=== PATIENT | male | born 1930 | race Caucasian/White ===

== ENCOUNTER 2016-09-21 10:49 | Outpatient (CLI) | payer MEDICARE | END 2016-09-21 10:50 | disposition home or self-care (01) | DX: I48.91 Unspecified atrial fibrillation (principal); Z79.01 Long term (current) use of anticoagulants ==

== ENCOUNTER 2016-10-05 09:53 | Outpatient (CLI) | payer MEDICARE | END 2016-10-05 09:54 | disposition home or self-care (01) | DX: I48.91 Unspecified atrial fibrillation (principal); Z79.01 Long term (current) use of anticoagulants ==

== ENCOUNTER 2016-10-12 08:40 | Outpatient (CLI) | payer MEDICARE | END 2016-10-12 08:41 | disposition home or self-care (01) | DX: I48.91 Unspecified atrial fibrillation (principal); Z79.01 Long term (current) use of anticoagulants ==

== ENCOUNTER 2016-11-30 07:32 | Outpatient (CLI) | payer MEDICARE | END 2016-11-30 07:33 | disposition home or self-care (01) | DX: E03.9 Hypothyroidism, unspecified (principal); Z79.899 Other long term (current) drug therapy ==

== ENCOUNTER 2017-01-10 09:28 | Outpatient (CLI) | payer MEDICARE | END 2017-01-10 09:29 | disposition home or self-care (01) | DX: I48.91 Unspecified atrial fibrillation (principal); Z79.01 Long term (current) use of anticoagulants ==

== ENCOUNTER 2017-01-17 08:54 | Outpatient (CLI) | payer MEDICARE | END 2017-01-17 08:55 | disposition home or self-care (01) | DX: I48.91 Unspecified atrial fibrillation (principal); Z79.01 Long term (current) use of anticoagulants ==

== ENCOUNTER 2017-02-01 09:49 | Outpatient (CLI) | payer MEDICARE | END 2017-02-01 09:50 | disposition home or self-care (01) | DX: I48.91 Unspecified atrial fibrillation (principal); Z79.01 Long term (current) use of anticoagulants ==

== ENCOUNTER 2017-02-15 09:24 | Outpatient (CLI) | payer MEDICARE | END 2017-02-15 09:25 | disposition home or self-care (01) | LOC: LAB.F 09:24 | PROVIDERS: ATTEND Internal Medicine | DX: I48.91 Unspecified atrial fibrillation (principal); Z79.01 Long term (current) use of anticoagulants | CPT/HCPCS: 85610 ==

== ENCOUNTER 2017-02-28 14:54 | Outpatient (CLI) | payer MEDICARE | END 2017-02-28 14:55 | disposition home or self-care (01) | LOC: LAB.F 14:54 | PROVIDERS: ATTEND Internal Medicine | DX: I48.91 Unspecified atrial fibrillation (principal); Z79.01 Long term (current) use of anticoagulants | CPT/HCPCS: 85610 ==

== ENCOUNTER 2017-03-28 15:33 | Outpatient (CLI) | payer MEDICARE | END 2017-03-28 15:34 | disposition home or self-care (01) | LOC: LAB.F 15:33 | PROVIDERS: ATTEND Internal Medicine | DX: I48.91 Unspecified atrial fibrillation (principal); Z79.01 Long term (current) use of anticoagulants | CPT/HCPCS: 85610 ==

== ENCOUNTER 2017-04-25 14:59 | Outpatient (CLI) | payer MEDICARE | END 2017-04-25 15:00 | disposition home or self-care (01) | LOC: LAB.F 14:59 | PROVIDERS: ATTEND Internal Medicine | DX: I48.91 Unspecified atrial fibrillation (principal); Z79.01 Long term (current) use of anticoagulants | CPT/HCPCS: 85610 ==

== ENCOUNTER 2017-04-27 15:16 | Outpatient (CLI) | payer MEDICARE | END 2017-04-27 15:17 | disposition home or self-care (01) | LOC: LAB 15:16 | PROVIDERS: ATTEND Internal Medicine | DX: C61 Malignant neoplasm of prostate (principal); R60.0 Localized edema | CPT/HCPCS: 36415; 85379 ==

== ENCOUNTER 2017-05-24 14:13 | Outpatient (CLI) | payer MEDICARE | END 2017-05-24 14:14 | disposition home or self-care (01) | LOC: LAB.F 14:13 | PROVIDERS: ATTEND Internal Medicine | DX: I48.91 Unspecified atrial fibrillation (principal); Z79.01 Long term (current) use of anticoagulants | CPT/HCPCS: 85610 ==

== ENCOUNTER 2017-07-01 09:52 | Outpatient (CLI) | payer MEDICARE | END 2017-07-01 09:53 | disposition home or self-care (01) | LOC: LAB.F 09:52 | PROVIDERS: ATTEND Internal Medicine | DX: I48.91 Unspecified atrial fibrillation (principal); Z79.01 Long term (current) use of anticoagulants | CPT/HCPCS: 85610 ==

== ENCOUNTER 2017-08-01 11:28 | Outpatient (CLI) | payer MEDICARE | END 2017-08-01 11:29 | disposition home or self-care (01) | LOC: LAB.F 11:28 | PROVIDERS: ATTEND Internal Medicine | DX: I48.91 Unspecified atrial fibrillation (principal); Z79.01 Long term (current) use of anticoagulants | CPT/HCPCS: 85610 ==

== ENCOUNTER 2017-08-29 14:27 | Outpatient (CLI) | payer MEDICARE | END 2017-08-29 14:28 | disposition home or self-care (01) | LOC: LAB.F 14:27 | PROVIDERS: ATTEND Internal Medicine | DX: I48.91 Unspecified atrial fibrillation (principal); Z79.01 Long term (current) use of anticoagulants | CPT/HCPCS: 85610 ==

== ENCOUNTER 2017-09-13 11:16 | Outpatient (CLI) | payer MEDICARE | END 2017-09-13 11:17 | disposition home or self-care (01) | LOC: LAB.F 11:16 | PROVIDERS: ATTEND Internal Medicine | DX: I48.91 Unspecified atrial fibrillation (principal); Z79.01 Long term (current) use of anticoagulants | CPT/HCPCS: 85610 ==

== ENCOUNTER 2017-11-01 12:36 | Outpatient (CLI) | payer MEDICARE | END 2017-11-01 12:37 | disposition home or self-care (01) | LOC: LAB.F 12:36 | PROVIDERS: ATTEND Internal Medicine | DX: Z53.9 Procedure and treatment not carried out, unspecified reason (principal) | CPT/HCPCS: 85610 ==

== ENCOUNTER 2017-11-14 14:37 | Outpatient (CLI) | payer MEDICARE | END 2017-11-14 14:38 | disposition home or self-care (01) | LOC: LAB.F 14:37 | PROVIDERS: ATTEND Internal Medicine | DX: I48.91 Unspecified atrial fibrillation (principal); Z79.01 Long term (current) use of anticoagulants | CPT/HCPCS: 85610 ==

== ENCOUNTER 2017-12-04 16:31 | Emergency (ER) | payer MEDICARE ==
[2017-12-04] MEDS ORDERED: SODIUM CHLORIDE 0.9% 500 ML IV ONE (17:30)
--- NOTE | 2017-12-04 17:30 | ED Physician Documentation ---
History of Present Illness - Stated complaint Stated Complaint: FEET/LEGS SWELLING,WEAK - Chief complaint Chief Complaint: General - History obtained from History obtained from: Patient, Family - History of Present Illness Timing: How many days ago (10) Pain level max: 6 Pain level now: 6 Improved by: nothing Worsened by: nothing - Additonal information Additional information: Patient is an 87-year-old gentleman who presents to the emergency department with a history of prostate cancer, currently undergoing oral chemotherapy. The change his medications 10 days ago and since that time he has been feeling generally weak, intermittent confusion with generalized aches and pains. He contacted the on-call oncologist today who recommended he come to the emergency department for evaluation. He is accompanied by his family in the emergency department. No fevers. No vomiting. Review of Systems Constitutional: denies: Fever, Chills Cardiac: denies: Chest pain / pressure Respiratory: denies: Cough GI: denies: Vomiting, Diarrhea Skin: denies: Rash Musculoskeletal: denies: Neck pain, Back pain Neurologic: denies: Headache PD PAST MEDICAL HISTORY - Past Medical History Cardiovascular: Atrial fibrillation Respiratory: None Neuro: Seizure disorder Endocrine/Autoimmune: HyPOthyroidism GI: None : Benign prostate hypertrophy HEENT: None Psych: None Musculoskeletal: None Derm: None - Past Surgical History Past Surgical History: No - Present Medications Home Medications: Ambulatory Orders Medication Instructions Recorded Confirmed Calcium Carbonate [Calcium] 1,000 mg PO DAILY 03/12/13 11/23/17 Cholecalciferol [Vitamin D3] 400 unit PO DAILY 03/12/13 11/23/17 Divalproex [Charlotte Farrar] 500 mg PO BID 03/12/13 11/23/17 Folic Acid 1 mg PO DAILY 03/12/13 11/23/17 Levothyroxine [Synthroid] 150 mcg PO QDAC 03/12/13 11/23/17 Digoxin [Lanoxin] 0.125 mg PO DAILY 05/07/13 11/23/17 Warfarin [Coumadin] 5 mg PO DAILY 08/01/13 11/23/17 Abiraterone Acetate [Zytiga] 1,000 mg PO DAILY 06/26/14 11/23/17 Metoprolol Tartrate [Lopressor] 25 mg PO BID 03/13/16 11/23/17 predniSONE [Deltasone] 5 mg PO DAILYWM 03/13/16 11/23/17 Enzalutamide [Xtandi] 160 mg PO DAILY 11/29/17 11/29/17 - Allergies Allergies/Adverse Reactions: Allergies Allergy/AdvReac Type Severity Reaction Status Date / Time No Known Drug Allergies Allergy Verified 12/04/17 19:21 - Social History Does the pt smoke?: No Smoking Status: Former smoker Does the pt drink ETOH?: No Does the pt have substance abuse?: No - Immunizations Immunizations are current?: No Immunizations: TDAP >10years/unknown - POLST Patient has POLST: No PD ED PE NORMAL - Vitals Vital signs reviewed: Yes - General General: Alert and oriented X 3, No acute distress - HEENT HEENT: Moist mucous membranes - Neck Neck: Supple, no meningeal sign - Cardiac Cardiac: RRR - Respiratory Respiratory: No respiratory distress, Clear bilaterally - Abdomen Abdomen: Soft, Non tender, Non distended - Derm Derm: Warm and dry - Extremities Extremities: Other (mild edema B LE) - Neuro Neuro: Alert and oriented X 3 - Psych Psych: Normal mood, Normal affect Results - Vitals Vitals: Vital Signs - 24 hr 12/04/17 12/04/17 12/04/17 16:33 19:08 20:18 Temperature 36.8 C Heart Rate 108 H 93 77 Respiratory 16 16 16 Rate Blood Pressure 102/59 L 154/57 H 130/60 O2 Saturation 96 93 94 Oxygen O2 Source [With Activity] Room air O2 Source Room air - Labs Labs: Laboratory Tests 12/04/17 12/04/17 12/04/17 18:00 18:00 18:00 WBC 5.5 RBC 4.33 L Hgb 11.9 L Hct 36.0 L MCV 83.2 MCH 27.5 MCHC 33.0 RDW 14.9 Plt Count 208 MPV 8.2 Neut # 3.2 Lymph # 1.1 L [place] # 1.0 Eos # 0.1 Baso # 0.1 Absolute Nucleated RBC 0.00 Nucleated RBC % 0.1 PT 25.0 H INR 2.3 H Sodium 128 L Potassium 3.8 Chloride 96 L Carbon Dioxide 23 Anion Gap 9.0 BUN 13 Creatinine 1.0 Estimated GFR (MDRD) 71 L Glucose 123 H Calcium 8.3 L Total Bilirubin 0.7 AST 19 ALT < 10 L Alkaline Phosphatase 180 H B-Natriuretic Peptide Total Protein 6.0 L Albumin 3.0 L Globulin 3.0 Albumin/Globulin Ratio 1.0 Lipase 13 L Urine Color Urine Clarity Urine pH Ur Specific [place] Urine Protein Urine Glucose (UA) Urine Ketones Urine Occult Blood Urine Nitrite Urine Bilirubin Urine Urobilinogen Ur Leukocyte Esterase Urine RBC Urine WBC Ur Squamous Epith Cells Urine Bacteria Ur Microscopic Review Urine Culture Comments 12/04/17 12/04/17 18:00 18:58 WBC RBC Hgb Hct MCV MCH MCHC RDW Plt Count MPV Neut # Lymph # [place] # Eos # Baso # Absolute Nucleated RBC Nucleated RBC % PT INR Sodium Potassium Chloride Carbon Dioxide Anion Gap BUN Creatinine Estimated GFR (MDRD) Glucose Calcium Total Bilirubin AST ALT Alkaline Phosphatase B-Natriuretic Peptide 246 H Total Protein Albumin Globulin Albumin/Globulin Ratio Lipase Urine Color YELLOW Urine Clarity HAZY Urine pH 5.5 Ur Specific [place] 1.010 Urine Protein NEGATIVE Urine Glucose (UA) NEGATIVE Urine Ketones NEGATIVE Urine Occult Blood LARGE H Urine Nitrite NEGATIVE Urine Bilirubin NEGATIVE Urine Urobilinogen 0.2 (NORMAL) Ur Leukocyte Esterase NEGATIVE Urine RBC 6-10 H Urine WBC 0-3 Ur Squamous Epith Cells NONE SEEN Urine Bacteria None Seen Ur Microscopic Review INDICATED Urine Culture Comments NOT INDICATED PD MEDICAL DECISION MAKING - ED course Complexity details: reviewed results, re-evaluated patient, considered differential, d/w patient, d/w family ED course: Patient is an 87-year-old male with metastatic prostate cancer as well as newly diagnosed renal cell carcinoma. Recently changed his chemotherapy medications and appears to be suffering side effects from this. I discussed the case with Dr. Boogie, on-call for oncology who recommends that he follow-up in the clinic with Dr. Stone in the next few days. He feels better after IV fluids and does appear dehydrated. We will continue supportive care at home and follow -up with his doctor. He also is mildly hyponatremic, this is chronic for him. Patient and family counseled regarding signs and symptoms for which I believe and urgent re-evaluation would be necessary. Patient with good understanding of and agreement to plan and is comfortable going home at this time This document was made in part using voice recognition software. While efforts are made to proofread this document, sound alike and grammatical errors may occur. Departure - Departure Disposition: 01 Home, Self Care Clinical Impression: Dehydration, Hyponatremia Condition: Good Instructions: ED Dehydration, ED Hyponatremia Follow-Up: Xu Mclean MD [Primary Care Provider] - Jayde Stone MD [Physician No Access] - Within 3 Days Comments: Return if you worsen. You need to increase your fluid intake at home. Discharge Date/Time: 12/04/17 20:22
[2017-12-04 18:09] LABS: BASOPHILS # (AUTO) 0.1 10^3/uL (0.0-0.1); BASOPHILS % (AUTO) 1.3 %; EOSINOPHILS # (AUTO) 0.1 10^3/uL (0.0-0.7); EOSINOPHILS % (AUTO) 2.3 %; HGB - HEMOGLOBIN 11.9 g/dL (14.0-18.0); LYMPHOCYTES # (AUTO) 1.1 10^3/uL (1.5-3.5); LYMPHOCYTES % (AUTO) 19.3 %; MEAN CORPUSCULAR HEMOGLOBIN 27.5 pg (27.0-31.0); MEAN CORPUSCULAR VOLUME 83.2 fL (80.0-94.0); MEAN PLATELET VOLUME 8.2 fL (7.4-11.4); MONOCYTES % (AUTO) 18.7 %; NEUTROPHILS # (AUTO) 3.2 10^3/uL (1.5-6.6); NEUTROPHILS % (AUTO) 58.4 %; PLT - PLATELET COUNT 208 10^3/uL (130-450); RED BLOOD COUNT 4.33 10^6/uL (4.70-6.10); RED CELL DISTRIBUTION WIDTH 14.9 % (12.0-15.0); WHITE BLOOD COUNT 5.5 x10^3/uL (4.8-10.8)
[2017-12-04 18:13] LABS: INR 2.3 (0.8-1.2)
--- NOTE | 2017-12-04 18:15 | XRAY Preliminary Report ---
Exam: XR CHEST 1 VIEW X-RAY IMPRESSION: No acute pulmonary process. Numerous sclerotic metastases. [facility] SITE ID: [id number]
--- NOTE | 2017-12-04 18:15 | XRAY Report ---
EXAM: CHEST RADIOGRAPHY EXAM DATE: 12/04/2017 05:57 PM. CLINICAL HISTORY: Dyspnea. COMPARISON: 04/12/2016 chest x-ray. TECHNIQUE: 1 view. FINDINGS: Lungs/Pleura: No focal opacities evident. No pleural effusion. No pneumothorax. Mediastinum: The heart is enlarged. Other: Numerous sclerotic metastases seen. IMPRESSION: No acute pulmonary process. Numerous sclerotic metastases. [facility] Referring Provider Line: [phone] SITE ID: [id number]
[2017-12-04 18:25] LABS: ALKALINE PHOSPHATASE 180 IU/L (42-121); ALT ALANINE AMINOTRANSFERASE < 10 IU/L (10-60); AST ASPARTATE AMINOTRANSFERASE 19 IU/L (10-42); BILIRUBIN,TOTAL 0.7 mg/dL (0.2-1.0); BUN - BLOOD UREA NITROGEN 13 mg/dL (6-20); CALCIUM 8.3 mg/dL (8.5-10.3); CARBON DIOXIDE - CO2 23 mmol/L (21-32); CHLORIDE 96 mmol/L (101-111); GFR - MDRD 71 (>89); GLUCOSE 123 mg/dL (70-100); LIPASE 13 U/L (22-51); SODIUM 128 mmol/L (135-145)
[2017-12-04 19:27] LABS: BILIRUBIN,URINE NEGATIVE (NEGATIVE); GLUCOSE, URINE (UA) NEGATIVE (NEGATIVE); KETONES,URINE (UA) NEGATIVE (NEGATIVE); LEUKOCYTE ESTERASE, URINE NEGATIVE (NEGATIVE); NITRITE,URINE NEGATIVE (NEGATIVE); OCCULT BLOOD,URINE LARGE (NEGATIVE); PH,URINE 5.5 PH (5.0-7.5); PROTEIN,URINE NEGATIVE (NEGATIVE); UROBILINOGEN,URINE 0.2 (NORMAL) E.U./dL (NORMAL)
[2017-12-04 19:32] LABS: CLARITY,URINE HAZY (CLEAR)
[2017-12-04 19:45] LABS: BACTERIA,URINE None Seen /HPF (None Seen); SQUAMOUS EPITHELIAL CELL,UR NONE SEEN (<= Few)
[2017-12-04 20:20] VITALS: BP 130/60
== END 2017-12-04 20:22 | disposition home or self-care (01) ==
LOC: ED 16:31
DX: E86.0 Dehydration (principal); E87.1 Hypo-osmolality and hyponatremia; C61 Malignant neoplasm of prostate; C79.00 Secondary malignant neoplasm of unspecified kidney and renal pelvis; G40.909 Epilepsy, unspecified, not intractable, without status epilepticus; E03.9 Hypothyroidism, unspecified; Z87.891 Personal history of nicotine dependence
CPT/HCPCS: 36415; 71045; 80053; 81001; 81003; 83690; 83880; 85025; 85610; 87086; 96360; 99283; 99284

== ENCOUNTER 2017-12-13 08:00 | Outpatient (CLI) | payer MEDICARE | END 2017-12-13 08:01 | disposition home or self-care (01) | LOC: LAB.F 08:00 | PROVIDERS: ATTEND Internal Medicine | DX: I48.91 Unspecified atrial fibrillation (principal); Z79.01 Long term (current) use of anticoagulants | CPT/HCPCS: 85610 ==

== ENCOUNTER 2017-12-27 11:25 | Outpatient (CLI) | payer MEDICARE | END 2017-12-27 11:26 | disposition home or self-care (01) | LOC: LAB.F 11:25 | PROVIDERS: ATTEND Internal Medicine | DX: I48.91 Unspecified atrial fibrillation (principal); Z79.01 Long term (current) use of anticoagulants | CPT/HCPCS: 85610 ==

== ENCOUNTER 2018-01-10 13:25 | Outpatient (CLI) | payer MEDICARE | END 2018-01-10 13:26 | disposition home or self-care (01) | LOC: LAB.F 13:25 | PROVIDERS: ATTEND Internal Medicine | DX: I48.91 Unspecified atrial fibrillation (principal); Z79.01 Long term (current) use of anticoagulants | CPT/HCPCS: 85610 ==

== ENCOUNTER 2018-01-17 13:57 | Outpatient (CLI) | payer MEDICARE | END 2018-01-17 13:58 | disposition home or self-care (01) | LOC: LAB.F 13:57 | PROVIDERS: ATTEND Internal Medicine | DX: Z53.9 Procedure and treatment not carried out, unspecified reason (principal) ==

== ENCOUNTER 2018-01-24 14:18 | Outpatient (CLI) | payer MEDICARE | END 2018-01-24 14:19 | disposition home or self-care (01) | LOC: LAB.F 14:18 | PROVIDERS: ATTEND Internal Medicine | DX: I48.91 Unspecified atrial fibrillation (principal); Z79.01 Long term (current) use of anticoagulants | CPT/HCPCS: 85610 ==

== ENCOUNTER 2018-02-06 11:42 | Outpatient (CLI) | payer MEDICARE ==
--- NOTE | 2018-02-06 13:45 | XRAY Report ---
THREE VIEW LEFT SHOULDER: 02/06/2018 CLINICAL INDICATION: Pain. FINDINGS: Internal and external rotational views and a scapular Y view of the left shoulder demonstrate mild degenerative changes. There is no evidence of acute fracture. Vascular calcifications are seen. Multiple sclerotic lesions are seen in the visualized left ribs, suspicious for osseous metastatic disease. IMPRESSION: DEGENERATIVE CHANGES. OSSEOUS METASTATIC DISEASE. NO EVIDENCE OF LEFT SHOULDER FRACTURE. TD: 02/06/2018 13:41
--- NOTE | 2018-02-06 13:46 | XRAY Report ---
TWO VIEW LEFT RIBS: 02/06/2018 CLINICAL INDICATION: Pain. FINDINGS: Oblique views of the left ribs were obtained, with a marker at the site of maximal tenderness. There is no evidence of a displaced rib fracture. Multiple sclerotic lesions are seen in the left ribs, compatible with osseous metastatic disease. No pneumothorax is appreciated on these oblique projections. IMPRESSION: OSSEOUS METASTATIC DISEASE. NO EVIDENCE OF ACUTE FRACTURE. TD: 02/06/2018 13:43
== END 2018-02-06 11:43 | disposition home or self-care (01) ==
LOC: DI 11:42
PROVIDERS: ATTEND Internal Medicine
DX: R07.9 Chest pain, unspecified (principal); M25.512 Pain in left shoulder; C79.51 Secondary malignant neoplasm of bone

== ENCOUNTER 2018-02-21 13:58 | Outpatient (CLI) | payer MEDICARE | END 2018-02-21 13:59 | disposition home or self-care (01) | LOC: LAB.F 13:58 | PROVIDERS: ATTEND Internal Medicine | DX: I48.91 Unspecified atrial fibrillation (principal); Z79.01 Long term (current) use of anticoagulants | CPT/HCPCS: 85610 ==

== ENCOUNTER 2018-02-22 08:16 | Outpatient (CLI) | payer MEDICARE ==
[2018-02-22 11:16] LABS: VALPROIC ACID (DEPAKOTE) 40.1 ug/mL
[2018-02-22 11:17] LABS: DIGOXIN < 0.2 ng/mL
== END 2018-02-22 08:17 | disposition home or self-care (01) ==
LOC: LAB.F 08:16
PROVIDERS: ATTEND Internal Medicine
DX: Z79.01 Long term (current) use of anticoagulants (principal); R56.9 Unspecified convulsions; I48.91 Unspecified atrial fibrillation; E03.9 Hypothyroidism, unspecified; Z79.899 Other long term (current) drug therapy
CPT/HCPCS: 36415; 80162; 80164; 84443

== ENCOUNTER 2018-03-08 14:20 | Outpatient (CLI) | payer MEDICARE | END 2018-03-08 14:21 | disposition home or self-care (01) | LOC: LAB.F 14:20 | PROVIDERS: ATTEND Internal Medicine | DX: I48.91 Unspecified atrial fibrillation (principal); Z79.01 Long term (current) use of anticoagulants | CPT/HCPCS: 85610 ==

== ENCOUNTER 2018-03-21 14:47 | Outpatient (CLI) | payer MEDICARE | END 2018-03-21 14:48 | disposition home or self-care (01) | LOC: LAB.F 14:47 | PROVIDERS: ATTEND Internal Medicine | DX: I48.91 Unspecified atrial fibrillation (principal); Z79.01 Long term (current) use of anticoagulants | CPT/HCPCS: 85610 ==

== ENCOUNTER 2018-04-04 08:00 | Outpatient (CLI) | payer MEDICARE | END 2018-04-04 08:01 | LOC: LAB.F 08:00 | PROVIDERS: ATTEND Internal Medicine | DX: I48.91 Unspecified atrial fibrillation (principal); Z79.01 Long term (current) use of anticoagulants | CPT/HCPCS: 85610 ==

== ENCOUNTER 2018-04-11 13:12 | Outpatient (CLI) | payer MEDICARE | END 2018-04-11 13:13 | disposition home or self-care (01) | LOC: LAB.F 13:12 | PROVIDERS: ATTEND Internal Medicine | DX: I48.91 Unspecified atrial fibrillation (principal); Z79.01 Long term (current) use of anticoagulants | CPT/HCPCS: 85610 ==

== ENCOUNTER 2018-04-25 13:34 | Outpatient (CLI) | payer MEDICARE | END 2018-04-25 13:35 | disposition home or self-care (01) | LOC: LAB.F 13:34 | PROVIDERS: ATTEND Internal Medicine | DX: I48.91 Unspecified atrial fibrillation (principal); Z79.01 Long term (current) use of anticoagulants | CPT/HCPCS: 85610 ==

== ENCOUNTER 2018-05-02 14:35 | Outpatient (CLI) | payer MEDICARE | END 2018-05-02 14:36 | disposition home or self-care (01) | LOC: LAB.F 14:35 | PROVIDERS: ATTEND Internal Medicine | DX: Z53.9 Procedure and treatment not carried out, unspecified reason (principal) ==

== ENCOUNTER → 2018-05-09 | Outpatient (CLI) | payer MEDICARE | LOC: LAB.F 08:00 | PROVIDERS: ATTEND Internal Medicine | DX: I48.91 Unspecified atrial fibrillation (principal); Z79.01 Long term (current) use of anticoagulants | CPT/HCPCS: 85610 ==

== ENCOUNTER 2018-05-16 14:01 | Outpatient (CLI) | payer MEDICARE | END 2018-05-16 14:02 | disposition home or self-care (01) | LOC: LAB.F 14:01 | PROVIDERS: ATTEND Internal Medicine | DX: I48.91 Unspecified atrial fibrillation (principal); Z79.01 Long term (current) use of anticoagulants | CPT/HCPCS: 85610 ==

== ENCOUNTER 2018-05-16 20:24 | Outpatient (CLI) | payer MEDICARE | END 2018-05-16 20:25 | disposition critical access hospital (66) | LOC: EMS 20:24 | PROVIDERS: ATTEND Surgery | DX: R55 Syncope and collapse (principal); R53.1 Weakness | CPT/HCPCS: A0425; A0427 ==

== ENCOUNTER 2018-05-16 20:59 | Inpatient (IN) | payer MEDICARE ==
[2018-05-16] MEDS ORDERED: SODIUM CHLORIDE 0.9% 1,000 ML IV ONE (21:27)
[2018-05-16 21:43] LABS: BASOPHILS # (AUTO) 0.1 10^3/uL (0.0-0.1); BASOPHILS % (AUTO) 1.1 %; EOSINOPHILS % (AUTO) 0.5 %; HGB - HEMOGLOBIN 11.2 g/dL (14.0-18.0); LYMPHOCYTES # (AUTO) 1.5 10^3/uL (1.5-3.5); LYMPHOCYTES % (AUTO) 28.6 %; MEAN CORPUSCULAR HEMOGLOBIN 25.8 pg (27.0-31.0); MEAN CORPUSCULAR HGB CONC 33.1 g/dL (32.0-36.0); MEAN PLATELET VOLUME 7.9 fL (7.4-11.4); MONOCYTES % (AUTO) 18.6 %; NEUTROPHILS # (AUTO) 2.8 10^3/uL (1.5-6.6); NEUTROPHILS % (AUTO) 51.2 %; PLT - PLATELET COUNT 117 10^3/uL (130-450); RED BLOOD COUNT 4.34 10^6/uL (4.70-6.10); RED CELL DISTRIBUTION WIDTH 18.3 % (12.0-15.0); WHITE BLOOD COUNT 5.4 x10^3/uL (4.8-10.8)
[2018-05-16 21:55] LABS: PT - PROTHROMBIN TIME 32.2 secs (9.9-12.6)
[2018-05-16 21:59] LABS: ALBUMIN 3.3 g/dL (3.2-5.5); ALBUMIN/GLOBULIN RATIO 1.2 (1.0-2.2); BILIRUBIN,TOTAL 0.8 mg/dL (0.2-1.0); CALCIUM 8.3 mg/dL (8.5-10.3); CREATININE 0.9 mg/dL (0.6-1.2); TOTAL PROTEIN 6.1 g/dL (6.7-8.2)
[2018-05-16 23:01] LABS: BILIRUBIN,URINE NEGATIVE (NEGATIVE); GLUCOSE, URINE (UA) NEGATIVE (NEGATIVE); KETONES,URINE (UA) 15 mg/dL (NEGATIVE); LEUKOCYTE ESTERASE, URINE NEGATIVE (NEGATIVE); NITRITE,URINE NEGATIVE (NEGATIVE); OCCULT BLOOD,URINE TRACE-INTA (NEGATIVE); PH,URINE 6.5 PH (5.0-7.5); PROTEIN,URINE TRACE mg/dL (NEGATIVE); UROBILINOGEN,URINE 2 E.U./dL (NORMAL)
[2018-05-16 23:04] LABS: CLARITY,URINE CLEAR (CLEAR)
--- NOTE | 2018-05-17 00:07 | XRAY Report ---
Reason: hypoxia Procedure Date: 05/16/2018 Accession Number: [id number] / [id number] Procedure: XR - Chest 1 View X-Ray CPT Code: 65039 FULL RESULT: EXAM: CHEST RADIOGRAPHY EXAM DATE: 05/16/2018 11:47 PM. CLINICAL HISTORY: Hypoxia COMPARISON: CHEST 1 VIEW 12/04/2017. TECHNIQUE: 1 view. FINDINGS: Lungs/Pleura: Trace left effusion. No focal infiltrate or pneumothorax. Mediastinum: Cardiomegaly. Other: Sclerotic bony lesions, similar to previous. IMPRESSION: Cardiomegaly and trace left effusion. [facility]
[2018-05-17] MEDS ORDERED: ONDANSETRON 4 MG/2 ML VIAL IVP PRN (01:18)
[2018-05-17] MEDS ORDERED: ONDANSETRON ODT 4 MG TABLET TL PRN (01:18)
[2018-05-17] MEDS ORDERED: METOPROLOL 5 MG/5 ML VIAL IVP STA (01:28)
--- NOTE | 2018-05-17 01:28 | ED Physician Documentation ---
History of Present Illness - Stated complaint Stated Complaint: SYNCOPE/WEAKNESS - Chief complaint Chief Complaint: Neuro - History obtained from History obtained from: Patient, Family, EMS - History of Present Illness Timing: Today - Additonal information Additional information: Patient is an 88 year old male with a history of prostate CA with bone mets and a fib who is presenting to the emergency department for generalized weakness and near syncopal episode. According to patient and family, patient was walking back to the bedroom with his walker and felt more weak than usual. Patient felt like he was going to pass out and he sat on the bed and then slid on the floor but never actually passed out. The family states that his weakness is worsening. patient has not been eating as much and only drank have a quart of water today. Review of Systems Constitutional: denies: Fever, Chills Eyes: denies: Decreased vision Cardiac: denies: Chest pain / pressure Respiratory: denies: Dyspnea, Cough, Wheezing GI: denies: Nausea, Vomiting : denies: Dysuria, Frequency Neurologic: reports: Generalized weakness. denies: Focal weakness, Numbness Psychiatric: denies: Depressed PD PAST MEDICAL HISTORY - Past Medical History Past Medical History: Yes Cardiovascular: Atrial fibrillation, Murmur Respiratory: None Neuro: Seizure disorder Endocrine/Autoimmune: HyPOthyroidism GI: None : Benign prostate hypertrophy, Other HEENT: Chronic hearing loss Psych: None Musculoskeletal: None Derm: None Other Past Medical History: Prostate CA with mets to the bone - Past Surgical History Past Surgical History: No General: Other - Present Medications Home Medications: Ambulatory Orders Medication Instructions Recorded Confirmed Calcium Carbonate [Calcium] 1,000 mg PO DAILY 03/12/13 04/19/18 Cholecalciferol [Vitamin D3] 400 unit PO DAILY 03/12/13 04/19/18 Divalproex [Charlotte Farrar] 500 mg PO BID 03/12/13 04/19/18 Folic Acid 1 mg PO DAILY 03/12/13 04/19/18 Levothyroxine [Synthroid] 150 mcg PO QDAC 03/12/13 04/19/18 Digoxin [Lanoxin] 0.125 mg PO DAILY 05/07/13 04/19/18 Warfarin [Coumadin] 5 mg PO DAILY 08/01/13 04/19/18 Metoprolol Tartrate [Lopressor] 25 mg PO BID 03/13/16 04/19/18 Enzalutamide [Xtandi] 80 mg PO DAILY 11/29/17 04/19/18 Prednisone 5 mg PO BID 12/07/17 04/19/18 predniSONE [Prednisone] 10 mg PO BID MDD x 7 days 12/07/17 04/19/18 Tamsulosin [Flomax] 0.4 mg PO ONCE #60 capsule 03/15/18 04/19/18 Ondansetron [Ondansetron Odt] 4 mg PO Q8HR PRN 04/19/18 04/19/18 Prochlorperazine Maleate 10 mg PO Q6HR PRN 04/19/18 04/19/18 [Compazine] traMADol [Ultram] 25 mg PO Q6H PRN 04/19/18 04/19/18 Mirtazapine 7.5 mg PO DAILY PM 05/03/18 05/03/18 - Allergies Allergies/Adverse Reactions: Allergies Allergy/AdvReac Type Severity Reaction Status Date / Time No Known Drug Allergies Allergy Verified 05/16/18 21:17 - Social History Does the pt smoke?: No Smoking Status: Never smoker Does the pt drink ETOH?: No Does the pt have substance abuse?: No - Immunizations Immunizations are current?: No Immunizations: TDAP >10years/unknown - POLST Patient has POLST: No PD ED PE NORMAL - Vitals Vital signs reviewed: Yes - General General: Alert and oriented X 3, No acute distress - HEENT HEENT: Atraumatic - Abdomen Abdomen: Soft, Non tender, Non distended - Derm Derm: Normal color, Warm and dry - Extremities Extremities: No deformity, Normal ROM s pain, No calf tenderness / cord - Neuro Neuro: Alert and oriented X 3, No motor deficit, Normal speech Eye Opening: Spontaneous Motor: Obeys Commands Verbal: Oriented GCS Score: 15 PD ED PE EXPANDED - HEENT HEENT: Dry mucous membranes - Cardiac Cardiac: Tachy, Irregularly irregular - Respiratory Respiratory: Decreased breath sounds, Right lower lobe, Left lower lobe Results - Vitals Vitals: Vital Signs - 24 hr 05/16/18 05/16/18 05/16/18 21:01 21:31 22:35 Temperature 37.4 C Heart Rate 94 88 Respiratory 19 22 23 Rate Blood Pressure 127/55 L 109/62 O2 Saturation 100 88 L 05/16/18 05/16/18 05/16/18 22:36 23:04 23:12 Temperature Heart Rate 114 H 105 H Respiratory 20 19 20 Rate Blood Pressure 118/65 118/65 O2 Saturation 96 92 98 05/17/18 05/17/18 05/17/18 00:17 00:25 00:27 Temperature Heart Rate 131 H 140 H 114 H Respiratory 20 30 H 20 Rate Blood Pressure 117/66 117/65 O2 Saturation 97 86 L 95 05/17/18 00:57 Temperature Heart Rate 130 H Respiratory 27 H Rate Blood Pressure 131/79 H O2 Saturation 97 Oxygen O2 Source [With Activity] Room air O2 Source Nasal cannula Oxygen Flow Rate 2 - Labs Labs: Laboratory Tests 05/16/18 05/16/18 05/16/18 21:35 21:35 21:35 WBC 5.4 RBC 4.34 L Hgb 11.2 L Hct 33.9 L MCV 78.0 L MCH 25.8 L MCHC 33.1 RDW 18.3 H Plt Count 117 L MPV 7.9 Neut # (Auto) 2.8 Lymph # (Auto) 1.5 [place] # (Auto) 1.0 Eos # (Auto) 0.0 Baso # (Auto) 0.1 Absolute Nucleated RBC 0.01 Nucleated RBC % 0.1 PT 32.2 H INR 3.0 H APTT 40.1 H Sodium 129 L Potassium 5.0 Chloride 98 L Carbon Dioxide 22 Anion Gap 9.0 BUN 20 Creatinine 0.9 Estimated GFR (MDRD) 80 L Glucose 122 H Calcium 8.3 L Phosphorus 4.0 Magnesium 2.0 Total Bilirubin 0.8 AST 89 H ALT 27 Alkaline Phosphatase 751 H Troponin I B-Natriuretic Peptide Total Protein 6.1 L Albumin 3.3 Globulin 2.8 Albumin/Globulin Ratio 1.2 Lipase 23 TSH Urine Color Urine Clarity Urine pH Ur Specific [place] Urine Protein Urine Glucose (UA) Urine Ketones Urine Occult Blood Urine Nitrite Urine Bilirubin Urine Urobilinogen Ur Leukocyte Esterase Ur Microscopic Review Urine Culture Comments 05/16/18 05/16/18 05/16/18 21:35 21:35 21:40 WBC RBC Hgb Hct MCV MCH MCHC RDW Plt Count MPV Neut # (Auto) Lymph # (Auto) [place] # (Auto) Eos # (Auto) Baso # (Auto) Absolute Nucleated RBC Nucleated RBC % PT INR APTT Sodium Potassium Chloride Carbon Dioxide Anion Gap BUN Creatinine Estimated GFR (MDRD) Glucose Calcium Phosphorus Magnesium Total Bilirubin AST ALT Alkaline Phosphatase Troponin I < 0.04 B-Natriuretic Peptide 285 H Total Protein Albumin Globulin Albumin/Globulin Ratio Lipase TSH 3.49 Urine Color Urine Clarity Urine pH Ur Specific [place] Urine Protein Urine Glucose (UA) Urine Ketones Urine Occult Blood Urine Nitrite Urine Bilirubin Urine Urobilinogen Ur Leukocyte Esterase Ur Microscopic Review Urine Culture Comments 05/16/18 21:50 WBC RBC Hgb Hct MCV MCH MCHC RDW Plt Count MPV Neut # (Auto) Lymph # (Auto) [place] # (Auto) Eos # (Auto) Baso # (Auto) Absolute Nucleated RBC Nucleated RBC % PT INR APTT Sodium Potassium Chloride Carbon Dioxide Anion Gap BUN Creatinine Estimated GFR (MDRD) Glucose Calcium Phosphorus Magnesium Total Bilirubin AST ALT Alkaline Phosphatase Troponin I B-Natriuretic Peptide Total Protein Albumin Globulin Albumin/Globulin Ratio Lipase TSH Urine Color YELLOW Urine Clarity CLEAR Urine pH 6.5 Ur Specific [place] 1.015 Urine Protein TRACE Urine Glucose (UA) NEGATIVE Urine Ketones 15 H Urine Occult Blood TRACE-INTA Urine Nitrite NEGATIVE Urine Bilirubin NEGATIVE Urine Urobilinogen 2 H Ur Leukocyte Esterase NEGATIVE Ur Microscopic Review NOT INDICATED Urine Culture Comments NOT INDICATED - Rads (name of study) chest x-ray Radiology: Final report received (small left sided effusion) PD MEDICAL DECISION MAKING - ED course Complexity details: reviewed old records, reviewed results, re-evaluated patient , considered differential, d/w patient, d/w family ED course: patient was seen and examined at bedside. patient was awake alert and oriented with no neurological deficits. ekg was performed and showed A fib. Iv access was gained and labs were drawn. patient was started on a fluid bolus. patient' s diagnostics showed moderate dehydration. patient had multiple episode of hypoxia and chest x-ray was ordered which showed small pleural effusion and possible patchy infiltrates. patient was placed on supplemental oxygen. Case was discussed with the hospitalist who came to evaluate the patient. Patient was admitted for further care. - Sepsis Event Vital Signs: Vital Signs - 24 hr 05/16/18 05/16/18 05/16/18 21:01 21:31 22:35 Temperature 37.4 C Heart Rate 94 88 Respiratory 19 22 23 Rate Blood Pressure 127/55 L 109/62 O2 Saturation 100 88 L 05/16/18 05/16/18 05/16/18 22:36 23:04 23:12 Temperature Heart Rate 114 H 105 H Respiratory 20 19 20 Rate Blood Pressure 118/65 118/65 O2 Saturation 96 92 98 05/17/18 05/17/18 05/17/18 00:17 00:25 00:27 Temperature Heart Rate 131 H 140 H 114 H Respiratory 20 30 H 20 Rate Blood Pressure 117/66 117/65 O2 Saturation 97 86 L 95 05/17/18 00:57 Temperature Heart Rate 130 H Respiratory 27 H Rate Blood Pressure 131/79 H O2 Saturation 97 Oxygen O2 Source [With Activity] Room air O2 Source Nasal cannula Oxygen Flow Rate 2 Departure - Departure Disposition: 66 [facility] DC/Xfer Clinical Impression: Hypoxia, Dehydration, Hyponatremia Condition: Stable Discharge Date/Time: 05/17/18 01:55
--- NOTE | 2018-05-17 02:05 | ADVANCE CARE PLANNING NOTE ---
Advance Care Planning - Date/Time Date: 05/17/18 Time: 00:00 - Purpose of encounter Text: to establish goals for him in light of porgression of disease - Parties in attendance Parties in attendance: , son, patient and Hospitalists, Dr. Liang - Decisional capacity Decisional capacity of: patient in intact. He is alert, but tired. - Subjective/Patient's story Subjective/Patient's story: Had is career in [place] and moved to [facility] in [place]. He has been very happy going between here and [place] with his of 67 years. Developed prostate cancer and initally responded to treatment but in the last 3 years, he has been getting worse and worse with mets to back and PSA slowly rising in spite of different treatment . With the last treatment of Xtandi, he became more nauseted and didn't want to eat. But he couldnt tell if that was form the Xtandi, or the narcotic for back pain, or the radiation to his spine in November. The things he loves to do (reading and golf ) he's not doing anymore. He naps more and more, and is doing less and less. His legs have become more edematous so he's been trying to use compression hose on them. he's losing weight with no appetite. He and his family have not discussed end of life issues such as when he would ask his Oncologist to stop, or what would be the indications that indicate he doesn't want ot go forward. As far as he and his family know, they are waiting for him to get some of strength and weight back, and then he will resume Xtandi and maybe something new for his cancer. - Objective/Medical story Objective/Medical Story: elderly gentleman whose disease has progessed thru castration, hormonal manipulation, and several lines of therapy. He also has afib on coumadin, Aortic regurgitation. He describes a gradual deterioration of his performance status over the last year in spite of treatment. He worsened in November after radiation with nausea and weight loss and progressive fatigue. He is now admitted with afib with RVR, collapse from weakness, protein calorie malnutrition and and overall failure to thrive. - Goals of Care Goals of care determinations: at this time, he has not spoken to his Oncologist about his overall prognosis or what to expect. He still would like treatment but will ask more pointed questions with his next visits. - Plan Plan: Use all treatment options short of resusitation in event of cardiac or pulmonary arrest. - Code Status Code Status: Do Not Attempt Resuscitation - Time Spent on Advance Care Planning Time spent on advance care plannin minutes.
[2018-05-17] MEDS: SODIUM CHLORIDE 0.9% 1,000 ML IV SCH ×2 (02:43→13:21)
[2018-05-17] MEDS: SODIUM CHLORIDE FLUSH 0.9% 10 ML SYRINGE IVP SCH ×3 (02:47→23:39)
--- NOTE | 2018-05-17 03:16 | HISTORY & PHYSICAL EXAMINATION ---
DATE OF SERVICE: 05/17/2018 Physician: Raissa Liang MD PRIMARY CARE PROVIDER: Dr. Xu Mclean. ADMITTING PROVIDER: Raissa Liang MD. CHIEF COMPLAINT: Collapse at home. HISTORY OF PRESENT ILLNESS: This is an 88-year-old white male who was diagnosed with prostate cancer in 2005. He has been treated with Lupron, Casodex and had initial improvement with a PSA near 0. Unfortunately he showed progression and was placed on hormone based therapy as well as Zometa to help him with bony metastases. With Dr. Jayde Stone on 05/08/2018 he is described as having metastatic castrate-resistant prostate cancer, that he has progressed through several lines of chemotherapy and most recently he continued to progress on Zytiga. He was switched to Xtandi in November 2017, but could not tolerate it due to severe fatigue. He also received palliative radiation to his spine two months ago. That made him have severe nausea. Because of his nausea, and in the hopes that his fatigue would continue to improve, Xtandi was held off for another month. He is to be reexamined in about a month's time and have his PSA checked. If his PSA doubled in three months' time, then he was going to be encouraged to restart Xtandi. Other options included Provenge or radium-223 oral or chemotherapy including docetaxel/paclitaxel. In speaking to the family, he has been deteriorating slowly over the last year. His favorite things to do in life are golf and reading. He really cannot finish books anymore because he spends most of his day sleeping. If he sits down to try and read, he just dozes off. More and more daytime use is now spent sleeping. He has lost weight because of decreased appetite from the radiation or the medicine for his prostate cancer or the narcotic that they were using for his bony pain. Family overall really cannot tell why he is nauseated with decreased appetite, he just is. The last time he golfed was last fall. He usually does that in [place]. They skipped [place] this year because he is just too weak and tired. He is still described as relatively independent. He still drives off and on and he last drove last week. But he has been failing. When the family looks back over his overall course, his son describes a step down with a plateau, then another step down with another plateau, and a continued stepping down overall. They were hoping that if he could gain some weight, have better appetite, more energy, he could go back on the Xtandi. Nothing new has happened. It has just been the steady deterioration as described. He has not had fever, chills, sweats. He has not had any new cough , shortness of breath. Appetite has remained the same and he has constant nocturia, but no hematuria. Bony back pain and shoulder pain on the left shoulder is stable at about a 6/10. Over the last week, they have noticed that his leg edema is much worse than usual and they have been trying to use compression stockings. It is not working. Today, he had gotten out of bed and walked a few feet; but he was so exhausted, he turned around and tried to get back in bed. He did not quite make it. As he was walking toward the bed, he just sort of collapsed over it and slowly slid to the floor. He did not have syncope. He did not hit his head. He did not trip over anything. His states he was completely conscious the entire time. He does have a history of seizures, but he did not have a seizure. Ambulance was called and he was brought to the emergency room. In triage his O2 saturation was 100% on room air, but the next vital sign has an 88% on room air. He has needed 1-2 liters to maintain O2 saturations in the 90s and off, he drops down to 86%. Heart rate has ranged from 94 to as high as 140 with atrial fibrillation. He is a very profoundly weak, but oriented, elderly gentleman who is quite cachectic. No findings on physical exam other than just shear debilitation. He has chronic hyponatremia. The lowest he has been is 124 on 05/02/2018. Today he is 129. He started getting hyponatremic to 128 in November of this year. This is in association with his radiation. Protein is 6.1. It is not the lowest he has been. The lowest he has been was 5.1 in February 2016. BUN and creatinine are normal. BNP is mildly elevated. Alkaline phosphatase was normal in 2017 and has been steadily rising. He was in the low 100s for 2017, then the 200s in 2017 and went up to 455 in February, 523 on 2017 and today he is 751. Hemoglobin is stable at 11.2 with his chronic anemia that is normocytic. Chest x-ray shows mild cardiovascular enlargement and a possible minimal pleural effusion, but no acute changes. His school lunch monitor shows the AFib with rapid ventricular response. PAST MEDICAL HISTORY 1. Metastatic prostate cancer with metastases to the bone that has progressed. Manifestations include reduced mobility status, weight loss, rising alkaline phosphatase and progression of bony metastases. 2. Chronic atrial fibrillation for which he is on Coumadin. 3. Moderate aortic regurgitation. 4. Seizure disorder. 5. Hypertension. 6. History of skin cancer. 7. Hypothyroidism. ALLERGIES: NO KNOWN DRUG ALLERGIES. MEDICATIONS 1. Compazine 10 mg every 6 hours as needed. 2. Zofran 4 mg every 8 hours as needed. 3. Digoxin 0.125 mg p.o. daily. 4. Depakote 500 mg p.o. b.i.d. 5. Xtandi 80 mg p.o. daily. 6. Synthroid 150 mcg daily. 7. Metoprolol tartrate 25 mg p.o. b.i.d. 8. Mirtazapine 7.5 mg p.o. at bedtime. 9. Prednisone 15 mg p.o. b.i.d. 10. Tamsulosin 0.4 mg daily. 11. Ultram 25 mg p.o. every 6 hours p.r.n. pain. 12. Coumadin 5 mg p.o. daily. 13. Folic acid 1 mg daily. 14. Vitamin D 400 units daily. 15. Calcium carbonate 1000 mg p.o. daily. SOCIAL HISTORY: He is from the [facility]. He and his live in [facility] when he retired there. They have been for 65 years. They have four children and three of them live in [facility], one lives in [place]. One son is with him right now as well as his . 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 He smoked one pack per day for five years. He drank 1-2 drinks socially a day, but never had a problem with alcohol abuse or alcoholism. He denies any use of cannabis, cocaine, heroin, LSD, methamphetamines. FAMILY HISTORY: Mother had breast cancer and lung cancer. Dad of old age. Two children have seizure disorders. CODE STATUS: DO NOT RESUSCITATE/DO NOT INTUBATE. REVIEW OF SYSTEMS GENERAL: The overall picture of a gentleman who is gradually dwindling with regard to appetite, weight, increasing periods of sleep and inactivity. HEAD/NECK: Unchanged. He denies any new problems with his teeth, swallowing. No new blurred vision. Occasional headache. PULMONARY: Denies coughing, wheezing, chest congestion. CARDIAC: Denies chest pain. He does note that he has been having increasing leg edema for the last week, but they have been trying to treat with compression stockings, but it is not working. He cannot really tell if he is more short of breath than usual because he is just so tired. Again, spends most of his time falling asleep. Spending more time in bed. ABDOMEN: Denies abdominal pain. No change in bowel habits. GENITOURINARY: Chronic nocturia about every hour to 2 hours. He did not have hematuria until he got the Nunez in the ER. Now he is having quite a bit of red blood. He is also having urgency, and dysuria since the Nunez. MUSCULOSKELETAL: Diffuse stiffness. Back pain is his worst pain as well as left shoulder. That has been ongoing for weeks now. SKIN: No new lesions. No new rashes. No petechiae. PSYCHIATRIC: Mild depression, but denies suicidal ideation, delusions. ENDOCRINE: Denies polyuria, polyphagia, polydipsia. PAPER TWISTER: Denies syncope. Has not had a seizure for years. Mild memory loss. No blurred vision, no amaurosis. No focal weakness. PHYSICAL EXAMINATION VITAL SIGNS: Temperature is 37.4. As already stated, his heart rate has varied from the 88 it was in triage and has gone as high as 140. Currently, he is 105. Blood pressure is 118/65, respirations 20. He is 97% on 2 liters. GENERAL: He is a cachectic, quiet, muted elderly gentleman who weakly smiles at me when I ask him how he feels, and he tells me, "I'm just really tired." HEENT: He has the overall cachexia with a protuberant skull. Oral mucosa is dry, but pink. Sclerae are nonicteric. Pupils reactive. NECK: Supple. He has a large sebaceous cyst along the sternocleidomastoid on the left side. No goiter. No bruits. Supple. LUNGS: Clear with diminished sounds at the bases, but no increased respiratory effort. No crackles, no rhonchi, no wheezing. HEART: PMI is normally placed and he has an irregular fast heart rate with systolic murmur and a diastolic murmur. Systolic murmur is at the left lower sternal border and nonradiating. Diastolic murmur is loudest at the apex. ABDOMEN: Scaphoid, soft, nondistended, quiet. Hypoactive bowel sounds. No rebound or guarding. EXTREMITIES: Have 2+ pitting edema around the ankles, but diminishes to 1+ edema as it goes up his legs. He has scaling hyperpigmentation compatible with venous stasis in the left leg, but no open lesions, no redness, no heat. He has bruises on his shins, more the left than the right. No clubbing or cyanosis. No joint effusions. NEUROLOGIC: He is alert to person, place and time, just very diffusely weak. No focal deficits. No tremors. LABORATORY DATA: White cell count is 5.4, hemoglobin 11.2, hematocrit 33.9, MCV 78, platelets 117. The microcytosis is new for him. He was normocytic in February and became microcytic in March. Platelet count is also dropping. He was 214 in January, 186 in February, 160 in March, 130 earlier this month and 117 today. INR is 3. Sodium 129, potassium 5, BUN 20, creatinine 0.9, glucose 122. AST is 89, ALT 27, alkaline phosphatase 751, total bilirubin 0.8. BNP is 285. Troponin less than 0.04. TSH 3.49. Urinalysis has ketones, urobilinogen, but negative for bacteria or leukocyte esterase. Last digoxin dose was less than 0.2 in February of this year. Tonight's has not been done nor has valproic acid been done. Chest x-ray has a trace left effusion, no focal infiltrate or pneumothorax. Cardiomegaly. Sclerotic bony lesions similar to previous. ASSESSMENT AND PLAN: 1. Collapse in this elderly gentleman. Causes are multifactorial, including atrial fibrillation with rapid ventricular response, mild protein-calorie malnutrition, and progression of metastatic prostate cancer. In this gentleman , I do not think there is one single thing that has caused him to become so weak that he fell against his bed today. Right now, we are not seeing any signs of infection and the chest x-ray is clear of pneumonia. Urinalysis is negative. He does not have a fever or a white cell count. Plan is to place in acute inpatient status. Attestation that the patient will be admitted for less than 96 hours and we will gradually start to treat the above-mentioned problems. 2. Atrial fibrillation with rapid ventricular response. Check digoxin dose. Lopressor 5 mg IV push. Resume usual Lopressor b.i.d. He states that he is compliant with his medications. 3. Valvular heart disease. Check echo to see if his valvular heart disease has worsened, which may be contributing to the rising BNP. 4. Metastatic prostate cancer. The patient will be continued on his Xtandi that he can use from home. After discussing with the family his poor performance status and how he has been gradually deteriorating over the last few months, I have asked them to consider at what point they might want to consider stopping therapy. 5. Elevated liver function studies. Check CT of the abdomen looking for liver metastases and/or pelvic adenopathy. His alkaline phosphatase has been rising and I attribute that to bone, not too much to liver. He could have elevated liver enzymes because of passive congestion from his aortic regurgitation. 6. Elevated brain natriuretic peptide. I explained to the family that some of his BNP may be elevated because of aortic regurgitation, but I do not want to diurese him completely at this time because I suspect there is some volume depletion causing the tachycardia as well. Again, we will check echocardiogram. I think that his hyponatremia is from combined dehydration and the CHF. 7. Microcytic anemia. In the MAC notes, Dr. Stone does say that the patient has iron deficiency anemia. Cut off for transfusion would be 7 grams hemoglobin. He is not a candidate at this time. 8. Prolonged international normalized ratio. At this time, it is 3. Hold one dose of Coumadin and continue to check on a daily basis. 9. Traumatic hematuria. The patient and family reassured. Unfortunately, this is a complication of Nunez placement. 10. DO NOT RESUSCITATE/DO NOT INTUBATE status. 11. Deep venous thrombosis prophylaxis will be ongoing with his Coumadin. TD: 05/17/2018 02:28 [facility]
[2018-05-17] MEDS: METOPROLOL TARTRATE 25 MG TABLET PO SCH ×2 (03:37→09:03)
[2018-05-17] MEDS: MIRTAZAPINE 15 MG TABLET PO SCH ×2 (04:46→21:14)
[2018-05-17 06:47] LABS: DIGOXIN 0.8 ng/mL
[2018-05-17] MEDS ORDERED: LEVOTHYROXINE 75 MCG TABLET PO SCH (07:00)
[2018-05-17] MEDS ORDERED: DIGOXIN 125 MCG TABLET PO SCH ×2 (09:00→09:11)
[2018-05-17] MEDS ORDERED: WARFARIN 5 MG TABLET PO SCH ×2 (09:00→17:00)
[2018-05-17] MEDS ORDERED: Enzalutamide [Xtandi] 80 MG PO SCH (09:00)
[2018-05-17] MEDS ORDERED: predniSONE 10 MG TABLET PO SCH (09:00)
[2018-05-17] MEDS: DIVALPROEX DR 250 MG TABLET PO SCH ×2 (09:02→21:14)
[2018-05-17] MEDS: predniSONE 5 MG TABLET PO SCH ×2 (09:03→21:14)
[2018-05-17] MEDS: DIGOXIN 125 MCG TABLET PO SCH (09:17)
[2018-05-17] MEDS: POLYETHYLENE GLYCOL 3350 17 GM PACKET PO SCH (09:18)
[2018-05-17] MEDS: TAMSULOSIN 0.4 MG CAPSULE PO SCH (13:21)
[2018-05-17] MEDS ORDERED: LIDOCAINE 2% URO-JET 5 ML SYRINGE UR PRN (16:21)
[2018-05-17] MEDS: COLCHICINE 0.6 MG TABLET PO SCH ×2 (18:14→21:11)
[2018-05-17] MEDS: METOPROLOL SUCCINATE 25 MG TABLET PO SCH ×2 (18:14→21:14)
[2018-05-17] MEDS: HYDROcod/ACETAM 5/325 MG TABLET PO PRN (18:14)
[2018-05-18] MEDS: SODIUM CHLORIDE 0.9% 1,000 ML IV SCH (00:45)
[2018-05-18] MEDS ORDERED: BENZOCAINE/MENTHOL LOZENGE MM PRN (01:07)
[2018-05-18] MEDS: ACETAMINOPHEN 325 MG TABLET PO PRN ×2 (01:48→16:20)
[2018-05-18 05:07] LABS: PT - PROTHROMBIN TIME 32.2 secs (9.9-12.6)
[2018-05-18 05:10] LABS: ALBUMIN 2.9 g/dL (3.2-5.5); BILIRUBIN,TOTAL 0.8 mg/dL (0.2-1.0); CALCIUM 8.4 mg/dL (8.5-10.3); CREATININE 0.8 mg/dL (0.6-1.2); TOTAL PROTEIN 5.9 g/dL (6.7-8.2)
[2018-05-18 05:21] LABS: BASOPHILS % (AUTO) 0.7 %; EOSINOPHILS % (AUTO) 0.2 %; HGB - HEMOGLOBIN 11.1 g/dL (14.0-18.0); LYMPHOCYTES # (AUTO) 1.1 10^3/uL (1.5-3.5); MEAN CORPUSCULAR HEMOGLOBIN 25.8 pg (27.0-31.0); MEAN CORPUSCULAR HGB CONC 32.8 g/dL (32.0-36.0); MEAN CORPUSCULAR VOLUME 78.9 fL (80.0-94.0); MEAN PLATELET VOLUME 8.3 fL (7.4-11.4); MONOCYTES # (AUTO) 0.6 10^3/uL (0.0-1.0); MONOCYTES % (AUTO) 15.2 %; NEUTROPHILS # (AUTO) 2.4 10^3/uL (1.5-6.6); NEUTROPHILS % (AUTO) 56.9 %; PLT - PLATELET COUNT 125 10^3/uL (130-450); RED BLOOD COUNT 4.31 10^6/uL (4.70-6.10); RED CELL DISTRIBUTION WIDTH 18.7 % (12.0-15.0); WHITE BLOOD COUNT 4.2 x10^3/uL (4.8-10.8)
[2018-05-18] MEDS: LEVOTHYROXINE 75 MCG TABLET PO SCH (06:47)
--- NOTE | 2018-05-18 08:08 | PROVIDER PROGRESS NOTE ---
Subjective - Prog Note Date Prog Note Date: 05/18/18 Prog Note Time: 08:08 Objective - Vital Signs/Intake & Output Vital Signs: Vital Signs x48h Temp Pulse Resp BP Pulse Ox 05/18/18 05:56 36.9 C 110 H 30 H 96 05/18/18 04:16 36.5 C 110 H 24 132/67 H 97 05/18/18 02:16 77 30 H 92 05/18/18 01:55 36.3 C L 87 38 H 87 L Intake & Output: Intake & Output 05/15/18 05/16/18 05/17/18 05/18/18 23:59 23:59 23:59 23:59 Intake Total 1666.108 949.996 Output Total 1575 365 Balance 91.108 584.996 - Lab Results Fish Bones: 05/18/18 04:40 05/18/18 04:40 Other Labs: Lab Results x24hrs 05/18/18 05/18/18 05/18/18 Range/Units 04:40 04:40 04:40 WBC (4.8-10.8) x10^3/uL RBC (4.70-6.10) 10^6/uL Hgb (14.0-18.0) g/dL Hct (42.0-52.0) % MCV (80.0-94.0) fL MCH (27.0-31.0) pg MCHC (32.0-36.0) g/dL RDW (12.0-15.0) % Plt Count (130-450) 10^3/uL MPV (7.4-11.4) fL Neut # (Auto) (1.5-6.6) 10^3/uL Lymph # (Auto) (1.5-3.5) 10^3/uL [place] # (Auto) (0.0-1.0) 10^3/uL Eos # (Auto) (0.0-0.7) 10^3/uL Baso # (Auto) (0.0-0.1) 10^3/uL Absolute Nucleated RBC x10^3/uL Nucleated RBC % /100WBC PT 32.2 H (9.9-12.6) secs INR 3.0 H (0.8-1.2) Sodium 130 L (135-145) mmol/L Potassium 4.4 (3.5-5.0) mmol/L Chloride 101 (101-111) mmol/L Carbon Dioxide 20 L (21-32) mmol/L Anion Gap 9.0 (6-13) BUN 16 (6-20) mg/dL Creatinine 0.8 (0.6-1.2) mg/dL Estimated GFR (MDRD) 92 (>89) Glucose 157 H (70-100) mg/dL Calcium 8.4 L (8.5-10.3) mg/dL Total Bilirubin 0.8 (0.2-1.0) mg/dL AST 57 H (10-42) IU/L ALT 26 (10-60) IU/L Alkaline Phosphatase 582 H (42-121) IU/L B-Natriuretic Peptide 709 H (5-100) pg/mL Total Protein 5.9 L (6.7-8.2) g/dL Albumin 2.9 L (3.2-5.5) g/dL Globulin 3.0 (2.1-4.2) g/dL Albumin/Globulin Ratio 1.0 (1.0-2.2) 05/18/18 Range/Units 04:40 WBC 4.2 L (4.8-10.8) x10^3/uL RBC 4.31 L (4.70-6.10) 10^6/uL Hgb 11.1 L (14.0-18.0) g/dL Hct 34.0 L (42.0-52.0) % MCV 78.9 L (80.0-94.0) fL MCH 25.8 L (27.0-31.0) pg MCHC 32.8 (32.0-36.0) g/dL RDW 18.7 H (12.0-15.0) % Plt Count 125 L (130-450) 10^3/uL MPV 8.3 (7.4-11.4) fL Neut # (Auto) 2.4 (1.5-6.6) 10^3/uL Lymph # (Auto) 1.1 L (1.5-3.5) 10^3/uL [place] # (Auto) 0.6 (0.0-1.0) 10^3/uL Eos # (Auto) 0.0 (0.0-0.7) 10^3/uL Baso # (Auto) 0.0 (0.0-0.1) 10^3/uL Absolute Nucleated RBC 0.00 x10^3/uL Nucleated RBC % 0.1 /100WBC PT (9.9-12.6) secs INR (0.8-1.2) Sodium (135-145) mmol/L Potassium (3.5-5.0) mmol/L Chloride (101-111) mmol/L Carbon Dioxide (21-32) mmol/L Anion Gap (6-13) BUN (6-20) mg/dL Creatinine (0.6-1.2) mg/dL Estimated GFR (MDRD) (>89) Glucose (70-100) mg/dL Calcium (8.5-10.3) mg/dL Total Bilirubin (0.2-1.0) mg/dL AST (10-42) IU/L ALT (10-60) IU/L Alkaline Phosphatase (42-121) IU/L B-Natriuretic Peptide (5-100) pg/mL Total Protein (6.7-8.2) g/dL Albumin (3.2-5.5) g/dL Globulin (2.1-4.2) g/dL Albumin/Globulin Ratio (1.0-2.2) Assessment/Plan - Problem List (2) Hypoxia Impression: The patient is not thought to be oxygen dependent at home, but since admission, the patient has been on supplemental oxygen that is now at 5L per oxy mask. The patient also has an increased respiratory rate of 34. I will obtain a chest x-ray today, as I suspect acute pneumonia and/or acute on chronic CHF. 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 Preliminary echo results show a reduced EF at 55%, aortic stenosis that is new from a previous echo, and diastolic dysfunction. Today on exam, the patient is very congested, and crackles are appreciated to the nipple line. An S4 is heard in the mitral region and this is both from his aortic stenosis and his pericardial effusion. Plan: continue to monitor fluid balance and give a daily lasix dose at 40 mg IV. (6) Aortic stenosis Impression: The patient's and son can recall that he had a history of aortic regurg, that was in stable condition the last they knew. Preliminary echo results show a severe aortic stenosis. Upon exam the auscultation of AO, it is mild and this likely due to the severity of this disease being severe. Plan: Continue to work on lowering heart rate to help with profusion. (7) Pulmonary hypertension Impression: The patient has a preliminary RVSP at rest of 54 mm Hg at rest as per echo report. He likely has pneumonia and fluid overload and a chest x-ray is pending. He has required oxygen since the time of admission and today has increased needs to 5L via oxy mask. He has BLE edema, that is pitting today. Plan: Eventually, the patient will be transitioned to daily Spironolactone.
[2018-05-18] MEDS: traMADol 50 MG TABLET PO PRN ×2 (10:46→20:28)
[2018-05-18] MEDS: DIGOXIN 125 MCG TABLET PO SCH (10:47)
[2018-05-18] MEDS: COLCHICINE 0.6 MG TABLET PO SCH (10:47)
--- NOTE | 2018-05-18 10:48 | CONSULTATION NOTE ---
Palliative Care Consultation - Referral Referring Provider: Keysha ESCOBAR Time of Visit: Referral setting: Hospitalized patient Referral Reason: Met Prostate Cancer/Goals of Care - Information Sources Records reviewed: RN notes reviewed, Previous records reviewed History/Review of Systems obtained from: Patient, Family (Son Antonio and Liz present) Exam limitations: Clinical condition (patient with hearing difficulties/fatigued ) - History of Present Illness Brief History of Present Illness: This is an 88-year-old gentleman who has been admitted acutely to [facility] on 05/17 secondary to collapse, this is thought to be multifactorial in origin. Patient has been deteriorating over the last couple weeks, with decreased appetite, decreased functional status, and sleeping more. 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 Escobar, and seed implants. He was found though after several lines of treatment including Lupron/Casodex, Zytiga, in November 2017 to have progressed. He is started on Xtandi, and was having significant amount of fatigue with this. They did put it on hold, watching his PSA, and restarted at 50% recently but still with side effects so currently on hold. 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 Patient has lost 10 pounds over the last few weeks , had actually been fairly functional up to this point, though weaker overall, was bathing independently, only recently needed walker, but has been more fatigued. Patient also has known atrial fib on anticoagulant, now admitted with atrial fib with rapid ventricular response, found on echo To have a small pericardial effusion recently started on colchochine, and increased aortic regurgitation/ stenosis. Medical/Surgical History - Past Medical History Cardiovascular: reports: Atrial fibrillation, Murmur, Valve disorder (aortic regurgitation) Respiratory: reports: None Neuro: Seizure disorder Endocrine/Autoimmune: reports: HyPOthyroidism GI: reports: None : reports: Benign prostate hypertrophy, Other (prostate cancer) HEENT: reports: Chronic hearing loss Psych: reports: None Musculoskeletal: reports: Fatigue, Chronic back pain (bone mets) Derm: reports: None MRSA Hx?: No Other Past Medical History: Prostate CA with mets to the bone - Past Surgical History General: reports: Other (TURP/Seed implants) - Substance History Use: Uses substance without health or social issues: NONE Social History - Living Situation Living arrangement: At home Living Situation: With spouse/s.o. (Has been for 64 years; lived on [place] for [place]; has 4 children very supportive; in fairly good health;) Family History - Family History Family History: Mother: (advanced age), Cancer (breast/lung), Father: Medications/Allergies - Medications Active Medication List: Active Medications Acetaminophen (Tylenol) 650 mg PO Q4HR PRN PRN Reason: Pain 1 to 4 Acetaminophen (Tylenol) 650 mg PO TID [facility] Hydrocodone Bitart/Acetaminophen (Jolon 5/325) 1 tab PO Q4HR PRN PRN Reason: Pain 5 to 7 Last Admin: 05/17/18 18:14 Dose: 1 tab Colchicine (Colcrys) 0.6 mg PO BID [facility] Last Admin: 05/17/18 21:11 Dose: Not Given Digoxin (Lanoxin) 125 mcg PO DAILY [facility] Last Admin: 05/17/18 09:17 Dose: 125 mcg Divalproex Sodium (Depakote Dr) 500 mg PO BID [facility] Last Admin: 05/17/18 21:14 Dose: 500 mg Levothyroxine Sodium (Synthroid) 150 mcg PO MoTuWeThFr@0700 [facility] Last Admin: 05/18/18 06:47 Dose: 150 mcg Lidocaine HCl (Xylocaine Uro-Jet 2%) 2.5 ml UR Q6H PRN PRN Reason: PAIN Last Admin: 05/17/18 17:48 Dose: 2.5 ml Metoprolol Succinate (Toprol Xl) 12.5 mg PO BID [facility] Last Admin: 05/17/18 21:14 Dose: 12.5 mg Mirtazapine (Remeron) 7.5 mg PO QPM [facility] Last Admin: 05/17/18 21:14 Dose: 7.5 mg Ondansetron HCl (Zofran Inj) 4 mg IVP Q6HR PRN PRN Reason: Nausea / Vomiting Ondansetron HCl (Zofran Odt) 4 mg TL Q6HR PRN PRN Reason: Nausea / Vomiting Polyethylene Glycol (Miralax) 17 gm PO DAILY [facility] Last Admin: 05/17/18 09:18 Dose: Not Given Prednisone (Deltasone) 5 mg PO BID [facility] Last Admin: 05/17/18 21:14 Dose: 5 mg Sodium Chloride (Normal Saline Flush 0.9%) 10 ml IVP PRN PRN PRN Reason: NEEDED PER PROVIDER ORDERS Sodium Chloride (Normal Saline Flush 0.9%) 10 ml IVP 0100,0900,1700 [facility] Last Admin: 05/17/18 23:39 Dose: Not Given Tamsulosin HCl (Flomax) 0.4 mg PO DAILY [facility] Last Admin: 05/17/18 13:21 Dose: 0.4 mg Throat Lozenges (Cepacol) 1 lozenge MM Q2HR PRN PRN Reason: Throat pain Tramadol HCl (Ultram) 25 mg PO Q6H PRN PRN Reason: PAIN Cholecalciferol [Vitamin D3] 600 unit PO DAILY 03/12/[address] [Depakote Dr] 500 mg PO BID 03/12/13 Folic Acid 1 mg PO DAILY 03/12/13 Levothyroxine [Synthroid] 150 mcg PO MOTUWETHFR@0700 03/12/13 Warfarin [Coumadin] 5 mg PO SUMOTUTHFRSA@0900 08/01/13 Metoprolol Tartrate [Lopressor] 12.5 mg PO BID 03/13/16 Prednisone 5 mg PO BID 12/07/17 traMADol [Ultram] 25 mg PO Q6H PRN 04/19/18 Mirtazapine 7.5 mg PO DAILY PM 05/03/18 Calcium Citrate 500 mg PO DAILY 05/17/18 Digoxin 125 mcg PO DAILY 05/17/18 Ibuprofen 200 mg PO Q4H PRN 05/17/18 Tamsulosin [Flomax] 0.4 mg PO DAILY 05/17/18 - Allergies Allergies/Adverse Reactions: Allergies Allergy/AdvReac Type Severity Reaction Status Date / Time No Known Drug Allergies Allergy Verified 05/16/18 21:17 Review of Systems - Constitutional Constitutional: reports: Fatigue, Malaise, Weakness, Poor appetite, Weight loss (reports 10 pound weight loss over last few weeks; started on remeron by Dr. Stone about 2 weeks ago) - Eyes Eyes: reports: Vision loss - Ears, Nose & Throat Ears, Nose & Throat: reports: Hearing loss, Hearing aids, Nasal congestion, Dry mouth - Cardiovascular Cardiovascular: reports: Irregular heart rate, Chest pain (about once a month), Edema (had been using support hose secondary to increase edema) - Respiratory Respiratory: reports: Cough (new today), SOB at rest (denies distress but demonstrates respiratory effort), SOB with exertion - Gastrointestinal Gastrointestinal: reports: Poor appetite, Early satiety. denies: Constipation - Genitourinary Genitourinary: reports: Other (currently with alvarado; reports decreased stress; had been having frequency/retention and noctoria increasing-some improvement with flomax orginally has not help recently) - Musculoskeletal Musculoskeletal: reports: Back pain (related to opal mets), Stiffness, Limited range of motion, Muscle weakness, Assistive devices - Integumentary Integumentary: reports: Dryness - Neurological Neurological: reports: General weakness - Endocrine Endocrine: reports: Hypothyroidism - Hematologic/Lymphatic Hematologic/Lymphatic: reports: Anemia - All Other Systems All Other Systems: reports: Reviewed and negative Physical Exam - Vital Signs Vital Signs: Vital Signs x48h Temp Pulse Resp BP Pulse Ox 05/18/18 08:30 36.4 C L 61 22 128/60 93 05/18/18 05:56 36.9 C 110 H 30 H 96 05/18/18 04:16 36.5 C 110 H 24 132/67 H 97 - Physical Exam General Appearance: positive: Mild distress, Lethargic Eyes Bilateral: positive: Normal inspection ENT: positive: Dry mucous membranes (mouth breathing with mask) Neck: positive: No JVD, Trachea midline Cardiovascular: positive: Irregular, Tachycardia Respiratory: positive: Diminished in bases (left greater than right), Rhonchi ( upper airways; loose rolling cough unable to expell) Abdomen: positive: Non-tender, Soft, Nml bowel sounds Skin: positive: Pallor, Dryness, Bruising Extremities: positive: Pedal edema (trace/scds) Neurologic/Psychiatric: positive: Disoriented to time, Weakness, Other (falls to sleep frequently through visit) Palliative Care - POLST Patient has POLST: No Pain: Pain worsening, Location (mid thoracic area; has used APAP/Tramadol/ ibuprofen at home; did poorly on narcotics though received hydrocodone last night. Patient very painful to move to evaluate lung status; reports pain as mod /severe in his upper back area.) Tiredness/Fatigue: Severe (7-10) Drowsiness/Sedation: Severe (7-10) Nausea: Mild (1-3) Constipation: No Performance Status: Patient previous to this episode - Palliative Care Discussion: Family meeting with son and he, Liz, and patient. Patient quite fatigued, fading in and out, and hard of hearing. But was able to participate somewhat in the conversation. Given patient's acute changes, still being worked up for underlying etiology of his decline, though certainly could be attributed to his advanced age, metastatic prostate cancer, and multiple comorbidities. though reports he has changed fairly dramatically in the last 24 hours, follow- up with Darrick ESCOBAR for further evaluation. In the context of discussion, we did talk about the continuum of care, including possibilities as far as transition and transition points. We discussed if patient continue with functional decline, they were going to need increased assistance, they do have a long-term care policy, discussed hiring increased assistance in the home setting. Patient has up to this point been fairly engaged in his care, trying to improve his functional status with a walking program, but does admit to severe fatigue, weight loss, and sleeping more. Patient and family goals are to regain as much of this as possible, recognizing patient has been declining. Discussed SNF with rehab goals, HH PT support, and that this would be evaluated at the time by rehab staff here with recommendations when closer to discharge. Introduced though wishes if were not to improve, family has not had any experience or familiarity with hospice, counseling regarding hospice support in the home, benefit does not include room and board, and answered questions of , had heard of [facility]. Reviewed this would need to be at a transition point when the goal was to focus on comfort only, and defined as a prognosis of 6 months or less.Patient and do have fairly extensive advanced directives, patient would want to be at home on for end-of-life and confirms that this is been a conversation they have had but has not been expanded on previous to this hospitalization. All in agreement needed to wait and see what the new normal is, and what expectations might be of his functional status and outcomes from his hospitalization. Results - Lab Results Lab results reviewed: Yes Fish Bones: 05/18/18 04:40 05/18/18 04:40 Lab and Imaging Results: Lab Results x24hrs 05/18/18 05/18/18 05/18/18 Range/Units 04:40 04:40 04:40 WBC (4.8-10.8) x10^3/uL RBC (4.70-6.10) 10^6/uL Hgb (14.0-18.0) g/dL Hct (42.0-52.0) % MCV (80.0-94.0) fL MCH (27.0-31.0) pg MCHC (32.0-36.0) g/dL RDW (12.0-15.0) % Plt Count (130-450) 10^3/uL MPV (7.4-11.4) fL Neut # (Auto) (1.5-6.6) 10^3/uL Lymph # (Auto) (1.5-3.5) 10^3/uL [place] # (Auto) (0.0-1.0) 10^3/uL Eos # (Auto) (0.0-0.7) 10^3/uL Baso # (Auto) (0.0-0.1) 10^3/uL Absolute Nucleated RBC x10^3/uL Nucleated RBC % /100WBC PT 32.2 H (9.9-12.6) secs INR 3.0 H (0.8-1.2) Sodium 130 L (135-145) mmol/L Potassium 4.4 (3.5-5.0) mmol/L Chloride 101 (101-111) mmol/L Carbon Dioxide 20 L (21-32) mmol/L Anion Gap 9.0 (6-13) BUN 16 (6-20) mg/dL Creatinine 0.8 (0.6-1.2) mg/dL Estimated GFR (MDRD) 92 (>89) Glucose 157 H (70-100) mg/dL Calcium 8.4 L (8.5-10.3) mg/dL Total Bilirubin 0.8 (0.2-1.0) mg/dL AST 57 H (10-42) IU/L ALT 26 (10-60) IU/L Alkaline Phosphatase 582 H (42-121) IU/L B-Natriuretic Peptide 709 H (5-100) pg/mL Total Protein 5.9 L (6.7-8.2) g/dL Albumin 2.9 L (3.2-5.5) g/dL Globulin 3.0 (2.1-4.2) g/dL Albumin/Globulin Ratio 1.0 (1.0-2.2) 05/18/18 Range/Units 04:40 WBC 4.2 L (4.8-10.8) x10^3/uL RBC 4.31 L (4.70-6.10) 10^6/uL Hgb 11.1 L (14.0-18.0) g/dL Hct 34.0 L (42.0-52.0) % MCV 78.9 L (80.0-94.0) fL MCH 25.8 L (27.0-31.0) pg MCHC 32.8 (32.0-36.0) g/dL RDW 18.7 H (12.0-15.0) % Plt Count 125 L (130-450) 10^3/uL MPV 8.3 (7.4-11.4) fL Neut # (Auto) 2.4 (1.5-6.6) 10^3/uL Lymph # (Auto) 1.1 L (1.5-3.5) 10^3/uL [place] # (Auto) 0.6 (0.0-1.0) 10^3/uL Eos # (Auto) 0.0 (0.0-0.7) 10^3/uL Baso # (Auto) 0.0 (0.0-0.1) 10^3/uL Absolute Nucleated RBC 0.00 x10^3/uL Nucleated RBC % 0.1 /100WBC PT (9.9-12.6) secs INR (0.8-1.2) Sodium (135-145) mmol/L Potassium (3.5-5.0) mmol/L Chloride (101-111) mmol/L Carbon Dioxide (21-32) mmol/L Anion Gap (6-13) BUN (6-20) mg/dL Creatinine (0.6-1.2) mg/dL Estimated GFR (MDRD) (>89) Glucose (70-100) mg/dL Calcium (8.5-10.3) mg/dL Total Bilirubin (0.2-1.0) mg/dL AST (10-42) IU/L ALT (10-60) IU/L Alkaline Phosphatase (42-121) IU/L B-Natriuretic Peptide (5-100) pg/mL Total Protein (6.7-8.2) g/dL Albumin (3.2-5.5) g/dL Globulin (2.1-4.2) g/dL Albumin/Globulin Ratio (1.0-2.2) Impression and Recommendations - Palliative Care Impression: This is an 88-year-old gentleman who presents acutely to [facility], now presents with rolling cough, diminished breath sounds, fatigue, and increased lethargy. Patient with metastatic prostate cancer, multiple comorbidities, and concern for developing pneumonia. Palliative care meeting initially with family to evaluate goals, will continue to provide support. Recommendations/Counseling Done: 1. Pain of neoplastic origin. Would recommend scheduled acetaminophen 650 3 times daily, patient had been on varying doses in the home setting. Patient does have tramadol available, would recommend nursing continue to evaluate as patient is hard of hearing, does not always offer of his discomfort. 2. Lethargy. Patient has not received any recent medications to change his level of consciousness, patient does present with rolling cough, diminished bases, and scattered rhonchi anteriorly. Follow-up with Darrick ESCOBAR, plan is to get a chest x-ray and rule out pneumonia. 3. Anorexia. Patient recently started on Remeron 7.5 mg at bedtime. Will need to continue to monitor, this is most likely multifactorial in origin, including fatigue, uncontrolled pain, and disease process. 4. Urinary retention. Patient actually quite pleased with Alvarado catheter as he has had increased trouble with urinary retention, frequency, and nocturia at night. Counseling briefly on post and cons, if patient remains quite fragile and frail may consider long-term benefits. 5. Advanced care planning. Initial meeting to establish rapport, counseling regarding the continuum of care and transition points, introduction of the concept of hospice based on goals. Discussed weighing benefits and burdens of treatment decisions against quality of life issues. Patient is a do not attempt resuscitation, does not have a DANITZA ST on record, but does have advanced directives. Patient quite weak and lethargic at time of visit, addressed son and 's questions, would recommend continued palliative care support outpatient if the patient discharges before next week. Time Spent: 90 minutes with greater than 50% of this done and counseling regarding goals of care, current acute illness, metastatic prostate cancer and anticipatory guidance.
[2018-05-18] MEDS: TAMSULOSIN 0.4 MG CAPSULE PO SCH (10:49)
[2018-05-18] MEDS: DIVALPROEX DR 250 MG TABLET PO SCH ×2 (10:50→20:29)
[2018-05-18] MEDS: predniSONE 5 MG TABLET PO SCH (10:51)
[2018-05-18] MEDS: METOPROLOL SUCCINATE 25 MG TABLET PO SCH ×2 (10:52→20:29)
[2018-05-18] MEDS: ACETAMINOPHEN 325 MG TABLET PO SCH ×3 (10:53→21:16)
[2018-05-18] MEDS: POLYETHYLENE GLYCOL 3350 17 GM PACKET PO SCH (10:55)
[2018-05-18] MEDS: CHOLECALCIFEROL 1,000 UNIT TABLET PO SCH (11:21)
[2018-05-18] MEDS: FERROUS SULFATE 325 MG TABLET PO SCH (11:21)
[2018-05-18] MEDS ORDERED: WARFARIN 5 MG TABLET PO SCH (14:00)
[2018-05-18] MEDS: SODIUM CHLORIDE FLUSH 0.9% 10 ML SYRINGE IVP SCH ×3 (14:07→16:36)
[2018-05-18] MEDS ORDERED: METOPROLOL SUCCINATE 25 MG TABLET PO SCH (15:00)
[2018-05-18] MEDS ORDERED: FUROSEMIDE 40 MG/4 ML VIAL IVP SCH (15:00)
[2018-05-18] MEDS ORDERED: cefTRIAXone 2 GM in SODIUM CHLORIDE 0.9% MINIBAG 100 ML IV SCH (16:00)
[2018-05-18] MEDS ORDERED: DIGOXIN 500 MCG/2 ML AMP IVP SCH (16:00)
[2018-05-18 17:54] LABS: ABG PH 7.52 (7.35-7.45)
[2018-05-18 17:58] LABS: ABG PCO2 25 mmHg (34-45)
[2018-05-18 17:59] LABS: ABG BASE EXCESS -1.5 mmol/L (-2.0-3.0); ABG OXYGEN SATURATION 95 % (94-98); ABG PO2 70 mmHg (80-100); ABG TCO2 20.8 MMOL/L (21.0-29.0)
[2018-05-18] MEDS ORDERED: VANCOMYCIN PER PHARMACY 10 GM in SODIUM CHLORIDE 0.9% 250 ML IV STA (18:08)
--- NOTE | 2018-05-18 18:24 | PROVIDER PROGRESS NOTE ---
Assessment/Plan - Problem List (1) Severe sepsis Assessment/Plan: Move the pt to the ICU. Start the sepsis bundle and protocol: blood culture, sputum culture, focused antibiotics for a HCAP, lactic acid level now and in 3 hours if first one elevated. The was update in person by me and Jorge L ESCOBAR (2) Atrial fibrillation with RVR Assessment/Plan: Begin iv Cardizem drip if HR no slower as fever goes down. Continue B-caryn. Check a Dig level tomorrow. Continue INR monitoring and restart Coumadin when appropriate. (3) HCAP (healthcare-associated pneumonia) Assessment/Plan: Begin broad spectrum antibiotics after cultures. Mucinex for cough and expectoration. (4) Aortic stenosis Assessment/Plan: Rate control is needed for better organ perfusion, especially due to severe . (5) Hypoxia Assessment/Plan: Begin titrating O2 by R.T. The patient does not want intubation but would agree to a BIPAP. Follow CXR daily. Continue inhalers. (6) Metastatic malignant neoplasm to prostate Assessment/Plan: Continue his cancerr meds. (7) Hyponatremia Assessment/Plan: Lasix iv and monitor BMP. - Current Meds Current Meds: Current Medications Generic Name Dose Route Start Last Admin Trade Name Freq PRN Reason Stop Dose Admin Acetaminophen 650 mg 05/17/18 01:18 05/18/18 16:20 Tylenol PO 650 mg Q4HR PRN Administration Pain 1 to 4 Acetaminophen 650 mg 05/18/18 10:28 05/18/18 14:10 Tylenol PO 650 mg TID SIXTO Administration Hydrocodone Bitart/Acetaminophen 1 tab 05/17/18 01:18 05/17/18 18:14 [place] 5/325 PO 1 tab Q4HR PRN Administration Pain 5 to 7 Cholecalciferol 2,000 unit 05/18/18 12:00 05/18/18 11:21 Vitamin D3 PO 2,000 unit DAILY SIXTO Administration Digoxin 125 mcg 05/17/18 09:00 05/18/18 10:47 Lanoxin PO 125 mcg DAILY SIXTO Administration Divalproex Sodium 500 mg 05/17/18 09:00 05/18/18 10:[address] PO 500 mg BID SIXTO Administration Ferrous Sulfate 325 mg 05/18/18 12:00 05/18/18 11:21 Feosol PO 325 mg DAILYWM SIXTO Administration Levothyroxine Sodium 150 mcg 05/18/18 07:00 05/18/18 06:47 Synthroid PO 150 mcg [id number] SIXTO Administration Lidocaine HCl 2.5 ml 05/17/18 16:21 05/17/18 17:48 Xylocaine Uro-Jet 2% UR 2.5 ml Q6H PRN Administration PAIN Metoprolol Succinate 12.5 mg 05/17/18 18:00 05/18/18 10:52 Toprol Xl PO 12.5 mg BID SIXTO Administration Mirtazapine 7.5 mg 05/17/18 01:30 05/17/18 21:14 Remeron PO 7.5 mg QPM SIXTO Administration Polyethylene Glycol 17 gm 05/17/18 09:00 05/18/18 10:55 Miralax PO Not Given DAILY SIXTO Sodium Chloride 10 ml 05/17/18 09:00 05/18/18 16:36 Normal Saline Flush 0.9% IVP 10 ml 0100,0900,1700 SIXTO Administration Tamsulosin HCl 0.4 mg 05/17/18 13:00 05/18/18 10:49 Flomax PO 0.4 mg DAILY SIXTO Administration Tramadol HCl 25 mg 05/17/18 01:22 05/18/18 10:46 Ultram PO 25 mg Q6H PRN Administration PAIN - Lab Result Fish Bone Diagrams: 05/18/18 04:40 05/18/18 04:40 - EKG Results EKG Interpreted Independently: Yes EKG Comparison: Unchanged from prior EKG EKG Findings: Afib with RVR, R axis deviation, PRWP, low voltage in limb leads, QS waves Lead 1 and AVL, similar to 05/16/18, except rate a little faster - Additional Planning My Orders: My Active Orders 05/18/18 CRP - C-REACTIVE PROTEIN [CHEM] Stat TROPONIN I [IAI] Stat 05/18/18 17:39 Arterial Blood Gases - RT [RC] .ONCE 05/18/18 18:06 MRSA PCR, CCU ADMIT [RAPID] Stat 05/18/18 18:08 IO [RC] Q1HR Vital Signs [RC] Q30M CULTURE, BLOOD #1 [RM] Stat CULTURE, BLOOD #2 [RM] Stat LACTIC ACID, VENOUS [CHEM] Stat PARTIAL THROMBOPLASTIN TIME [COAG] Stat Cefepime 2 gm Sodium Chloride 0.9% Minibag [Normal Saline 0.9% Minibag] 100 ml IV Q8H Vancomycin Per Pharmacy [Vancomycin-Pharmacy To Dose] 10 gm Sodium Chloride 0.9% [Normal Saline 0.9%] 250 ml IV Q12H 05/18/18 18:09 IV Insert- Second IV Line [RC] ONCE 05/18/18 18:11 CUL, RESPIRATORY [RM] Stat CUL, URINE [RM] Stat 05/18/18 18:15 Severe Sepsis Onset Time [OTHERS] ONCE 05/18/18 21:00 FUROSEMIDE INJ 40mg VIAL [LASIX INJ 40 mg VIAL] 40 mg IVP BID 05/19/18 09:00 Chest 1 View X-Ray [XR] DAILY 05/20/18 09:00 Chest 1 View X-Ray [XR] DAILY 05/21/18 09:00 Chest 1 View X-Ray [XR] DAILY Subjective - Subjective Patient Reports: Other (Denies pain) Nursing Reports: Other (RN describes he spiked a temp, looks pasty, less communicative/lethargic, and is tachypneic.) Objective Vital Signs: Vital Signs - 24 hr 05/17/18 05/17/18 05/18/18 18:57 21:15 00:04 Temperature 36.5 C 36.3 C L Heart Rate Heart Rate [ 85 91 99 Brachial] Heart Rate [ Monitoring electrodes] Respiratory 20 18 Rate Blood Pressure 107/55 L 103/56 L 118/68 [Right Brachial artery] O2 Saturation 94 98 05/18/18 05/18/18 05/18/18 01:55 02:16 04:16 Temperature 36.3 C L 36.5 C Heart Rate Heart Rate [ 87 77 110 H Brachial] Heart Rate [ Monitoring electrodes] Respiratory 38 H 30 H 24 Rate Blood Pressure 132/67 H [Right Brachial artery] O2 Saturation 87 L 92 97 05/18/18 05/18/18 05/18/18 05:56 08:30 11:01 Temperature 36.9 C 36.4 C L Heart Rate Heart Rate [ 110 H 61 Brachial] Heart Rate [ Monitoring electrodes] Respiratory 30 H 22 42 H Rate Blood Pressure 128/60 [Right Brachial artery] O2 Saturation 96 93 93 05/18/18 05/18/18 05/18/18 13:00 13:55 14:43 Temperature 36.9 C Heart Rate Heart Rate [ 64 134 H 128 H Brachial] Heart Rate [ Monitoring electrodes] Respiratory 34 H Rate Blood Pressure 100/48 L [Right Brachial artery] O2 Saturation 93 05/18/18 05/18/18 05/18/18 16:17 16:33 16:52 Temperature 38.6 C H 38.2 C H Heart Rate 144 H Heart Rate [ 140 H 152 H Brachial] Heart Rate [ Monitoring electrodes] Respiratory 30 H 38 H Rate Blood Pressure 116/62 121/74 [Right Brachial artery] O2 Saturation 93 05/18/18 18:00 Temperature Heart Rate Heart Rate [ Brachial] Heart Rate [ 123 H Monitoring electrodes] Respiratory 36 H Rate Blood Pressure 101/50 L [Right Brachial artery] O2 Saturation 95 Oxygen O2 Source Oxymask I&O (Last 24 Hrs): Intake and Output Totals x24h 05/16/18 05/17/18 05/18/18 23:59 23:59 23:59 Intake Total 0453.515 9376.996 Output Total 1575 2040 Balance 91.108 -40.004 General: Other (Lethargic) HEENT: Other (Pale, wearing O2 mask) Neuro: Non Focal Cardiovascular: Regular rate, Other (Tachy, soft S1, S2, 2/6 systolic murmur at base, 3/6 musical honking systolic murmur at base, no RV heave) Respiratory: Other (diffusely diminished breath sounds) Abdomen: Soft Extremities: No edema - Results Results: Laboratory Results WBC 4.2 x10^3/uL (4.8-10.8) L 05/18/18 04:40 RBC 4.31 10^6/uL (4.70-6.10) L 05/18/18 04:40 Hgb 11.1 g/dL (14.0-18.0) L 05/18/18 04:40 Hct 34.0 % (42.0-52.0) L 05/18/18 04:40 MCV 78.9 fL (80.0-94.0) L 05/18/18 04:40 MCH 25.8 pg (27.0-31.0) L 05/18/18 04:40 MCHC 32.8 g/dL (32.0-36.0) 05/18/18 04:40 RDW 18.7 % (12.0-15.0) H 05/18/18 04:40 Plt Count 125 10^3/uL (130-450) L 05/18/18 04:40 MPV 8.3 fL (7.4-11.4) 05/18/18 04:40 Neut # (Auto) 2.4 10^3/uL (1.5-6.6) 05/18/18 04:40 Lymph # (Auto) 1.1 10^3/uL (1.5-3.5) L 05/18/18 04:40 [place] # (Auto) 0.6 10^3/uL (0.0-1.0) 05/18/18 04:40 Eos # (Auto) 0.0 10^3/uL (0.0-0.7) 05/18/18 04:40 Baso # (Auto) 0.0 10^3/uL (0.0-0.1) 05/18/18 04:40 Absolute Nucleated RBC 0.00 x10^3/uL 05/18/18 04:40 Nucleated RBC % 0.1 /100WBC 05/18/18 04:40 PT 32.2 secs (9.9-12.6) H 05/18/18 04:40 INR 3.0 (0.8-1.2) H 05/18/18 04:40 APTT 40.1 secs (24.9-33.3) H 05/16/18 21:35 Bld Gas Analysis Time 1739 05/18/18 17:35 Sample Site RIGHT BRACHIAL 05/18/18 17:35 ABG pH 7.52 (7.35-7.45) H 05/18/18 17:35 ABG pCO2 25 mmHg (34-45) L* 05/18/18 17:35 ABG pO2 70 mmHg (80-100) L 05/18/18 17:35 ABG HCO3 20.0 mmol/L (22.0-26.0) L 05/18/18 17:35 ABG Total CO2 20.8 MMOL/L (21.0-29.0) L 05/18/18 17:35 ABG O2 Saturation 95 % (94-98) 05/18/18 17:35 ABG Base Excess -1.5 mmol/L (-2.0-3.0) 05/18/18 17:35 Sj Test NOT APPLICABLE 05/18/18 17:35 O2 Delivery Device OXYMASK 05/18/18 17:35 O2 Liters/Min 6.00 LPM 05/18/18 17:35 Sodium 130 mmol/L (135-145) L 05/18/18 04:40 Potassium 4.4 mmol/L (3.5-5.0) 05/18/18 04:40 Chloride 101 mmol/L (101-111) 05/18/18 04:40 Carbon Dioxide 20 mmol/L (21-32) L 05/18/18 04:40 Anion Gap 9.0 (6-13) 05/18/18 04:40 BUN 16 mg/dL (6-20) 05/18/18 04:40 Creatinine 0.8 mg/dL (0.6-1.2) 05/18/18 04:40 Estimated GFR (MDRD) 92 (>89) 05/18/18 04:40 Glucose 157 mg/dL (70-100) H 05/18/18 04:40 Calcium 8.4 mg/dL (8.5-10.3) L 05/18/18 04:40 Phosphorus 4.0 mg/dL (2.5-4.6) 05/16/18 21:35 Magnesium 2.0 mg/dL (1.7-2.8) 05/16/18 21:35 Total Bilirubin 0.8 mg/dL (0.2-1.0) 05/18/18 04:40 AST 57 IU/L (10-42) H 05/18/18 04:40 ALT 26 IU/L (10-60) 05/18/18 04:40 Alkaline Phosphatase 582 IU/L (42-121) H 05/18/18 04:40 Troponin I < 0.04 ng/mL (<0.49) 05/16/18 21:35 B-Natriuretic Peptide 709 pg/mL (5-100) H 05/18/18 04:40 Total Protein 5.9 g/dL (6.7-8.2) L 05/18/18 04:40 Albumin 2.9 g/dL (3.2-5.5) L 05/18/18 04:40 Globulin 3.0 g/dL (2.1-4.2) 05/18/18 04:40 Albumin/Globulin Ratio 1.0 (1.0-2.2) 05/18/18 04:40 Lipase 23 U/L (22-51) 05/16/18 21:35 TSH 3.49 uIU/mL (0.34-5.60) 05/16/18 21:35 Urine Color YELLOW 05/16/18 21:50 Urine Clarity CLEAR (CLEAR) 05/16/18 21:50 Urine pH 6.5 PH (5.0-7.5) 05/16/18 21:50 Ur Specific [place] 1.015 (1.002-1.030) 05/16/18 21:50 Urine Protein TRACE mg/dL (NEGATIVE) 05/16/18 21:50 Urine Glucose (UA) NEGATIVE mg/dL (NEGATIVE) 05/16/18 21:50 Urine Ketones 15 mg/dL (NEGATIVE) H 05/16/18 21:50 Urine Occult Blood TRACE-INTA (NEGATIVE) 05/16/18 21:50 Urine Nitrite NEGATIVE (NEGATIVE) 05/16/18 21:50 Urine Bilirubin NEGATIVE (NEGATIVE) 05/16/18 21:50 Urine Urobilinogen 2 E.U./dL (NORMAL) H 05/16/18 21:50 Ur Leukocyte Esterase NEGATIVE (NEGATIVE) 05/16/18 21:50 Ur Microscopic Review NOT INDICATED 05/16/18 21:50 Urine Culture Comments NOT INDICATED 05/16/18 21:50 Last Dose Date Not Reportable 05/17/18 06:25 Last Dose Time Not Reportable 05/17/18 06:25 Digoxin 0.8 ng/mL 05/17/18 06:25 - Procedures Procedures: Procedures CONTROL POSTOP PROST HEM (05/31/13) OTH TRANSURETHRAL PROSTATECTOMY (05/31/13) SERUM TRANSFUSION NEC (05/31/13) TU BLADDER CLEARANCE (05/31/13)
--- NOTE | 2018-05-18 18:48 | XRAY Report ---
Reason: SOB, crackles, tachycardia Procedure Date: 05/18/2018 Accession Number: [id number] / [id number] Procedure: XR - Chest 1 View X-Ray CPT Code: 77704 FULL RESULT: EXAM: CHEST RADIOGRAPHY. EXAM DATE: 05/18/2018 04:03 PM. CLINICAL HISTORY: Shortness of breath, crackles, tachycardia. COMPARISON: Chest radiograph 05/16/2018, 12/04/2017 and 03/17/2006. Rib radiographs 02/06/2018. TECHNIQUE: 1 view. FINDINGS: Lungs/Pleura: Probable increased small left pleural effusion. Increasing patchy bibasilar opacities medially. Mid and upper lungs remain clear. No pneumothorax. Mediastinum: Within exam limitations, the cardiomediastinal contour is unchanged with similar cardiomegaly and mild calcific atherosclerosis of the aortic arch. Other: Sclerotic osseous metastases. IMPRESSION: Cardiomegaly with slightly increased small left pleural effusion and bibasilar findings which may represent aspiration/pneumonia or developing pulmonary edema. RADIA
[2018-05-18] MEDS ORDERED: SODIUM CHLORIDE 0.9% 500 ML IV ONE (18:51)
[2018-05-18] MEDS ORDERED: diltiaZEM INJ 125 MG in DEXTROSE 5% 100 ML IV SCH (19:00)
[2018-05-18] MEDS: CEFEPIME 2 GM in SODIUM CHLORIDE 0.9% MINIBAG 100 ML IV SCH (19:00)
[2018-05-18] MEDS: methylPREDNISolone SUCCINATE 40 MG/ML VIAL IVP SCH ×2 (19:48→21:17)
[2018-05-18] MEDS: VANCOMYCIN INJ 1 GM in SODIUM CHLORIDE 0.9% 250 ML IV SCH (19:48)
[2018-05-18] MEDS: CALCIUM CITRATE 250 MG TABLET PO SCH (20:29)
[2018-05-18] MEDS: MIRTAZAPINE 15 MG TABLET PO SCH (20:30)
[2018-05-18] MEDS: FUROSEMIDE 40 MG/4 ML VIAL IVP SCH (21:16)
[2018-05-19] MEDS: SODIUM CHLORIDE FLUSH 0.9% 10 ML SYRINGE IVP SCH ×3 (02:06→18:02)
[2018-05-19] MEDS: CEFEPIME 2 GM in SODIUM CHLORIDE 0.9% MINIBAG 100 ML IV SCH ×3 (03:13→18:28)
[2018-05-19 05:34] LABS: BASOPHILS % (AUTO) 0.2 %; EOSINOPHILS % (AUTO) 0.1 %; HGB - HEMOGLOBIN 11.1 g/dL (14.0-18.0); LYMPHOCYTES # (AUTO) 0.6 10^3/uL (1.5-3.5); LYMPHOCYTES % (AUTO) 20.9 %; MEAN CORPUSCULAR HEMOGLOBIN 25.7 pg (27.0-31.0); MEAN CORPUSCULAR HGB CONC 32.3 g/dL (32.0-36.0); MEAN CORPUSCULAR VOLUME 79.6 fL (80.0-94.0); MEAN PLATELET VOLUME 8.2 fL (7.4-11.4); MONOCYTES # (AUTO) 0.3 10^3/uL (0.0-1.0); MONOCYTES % (AUTO) 9.2 %; NEUTROPHILS # (AUTO) 2.2 10^3/uL (1.5-6.6); NEUTROPHILS % (AUTO) 69.6 %; PLT - PLATELET COUNT 128 10^3/uL (130-450); RED CELL DISTRIBUTION WIDTH 18.9 % (12.0-15.0); WHITE BLOOD COUNT 3.1 x10^3/uL (4.8-10.8)
[2018-05-19 05:38] LABS: INR 4.4 (0.8-1.2); PT - PROTHROMBIN TIME 46.5 secs (9.9-12.6)
[2018-05-19 05:40] LABS: ALBUMIN 2.8 g/dL (3.2-5.5); ALBUMIN/GLOBULIN RATIO 0.8 (1.0-2.2); BILIRUBIN,TOTAL 0.7 mg/dL (0.2-1.0); CALCIUM 7.6 mg/dL (8.5-10.3); CREATININE 1.2 mg/dL (0.6-1.2); TOTAL PROTEIN 6.1 g/dL (6.7-8.2)
[2018-05-19 05:50] LABS: DIGOXIN 1.1 ng/mL
[2018-05-19] MEDS: ACETAMINOPHEN 325 MG TABLET PO SCH (06:00)
[2018-05-19] MEDS: methylPREDNISolone SUCCINATE 40 MG/ML VIAL IVP SCH ×3 (06:00→22:08)
[2018-05-19] MEDS: LEVOTHYROXINE 75 MCG TABLET PO SCH (06:01)
--- NOTE | 2018-05-19 06:11 | XRAY Report ---
Reason: CHF and Hosp Acquired Pneumonia Procedure Date: 05/19/2018 Accession Number: [id number] / [id number] Procedure: XR - Chest 1 View X-Ray CPT Code: 06507 FULL RESULT: EXAM: CHEST RADIOGRAPHY EXAM DATE: 05/19/2018 05:44 AM. CLINICAL HISTORY: CHF and Hosp Acquired Pneumonia. COMPARISON: 05/18/2018. TECHNIQUE: 1 view. FINDINGS: Lungs/Pleura: Pulmonary vascular congestion. Dense consolidation or atelectasis at the left base. Possible small left effusion. Improving aeration at the right base. No pneumothorax. Mediastinum: Mild cardiomegaly. Aortic atherosclerosis. Other: Sclerotic osseous metastatic disease. IMPRESSION: 1. Cardiomegaly and pulmonary vascular congestion with persistent dense consolidation or atelectasis at the left base and small left effusion. 2. Improving aeration at the right base. RADIA
[2018-05-19] MEDS: VANCOMYCIN INJ 1 GM in SODIUM CHLORIDE 0.9% 250 ML IV SCH ×2 (08:18→20:04)
[2018-05-19] MEDS: CHOLECALCIFEROL 1,000 UNIT TABLET PO SCH (08:35)
[2018-05-19] MEDS: FERROUS SULFATE 325 MG TABLET PO SCH (08:35)
[2018-05-19] MEDS: CALCIUM CITRATE 250 MG TABLET PO SCH ×2 (08:35→20:32)
[2018-05-19] MEDS: DIGOXIN 125 MCG TABLET PO SCH (08:36)
[2018-05-19] MEDS: DIVALPROEX DR 250 MG TABLET PO SCH ×2 (08:36→20:32)
[2018-05-19] MEDS: FUROSEMIDE 40 MG/4 ML VIAL IVP SCH ×2 (09:47→17:39)
[2018-05-19] MEDS: TAMSULOSIN 0.4 MG CAPSULE PO SCH (09:47)
[2018-05-19] MEDS: POLYETHYLENE GLYCOL 3350 17 GM PACKET PO SCH (09:47)
[2018-05-19] MEDS: METOPROLOL SUCCINATE 25 MG TABLET PO SCH ×2 (09:47→20:34)
--- NOTE | 2018-05-19 17:01 | PROVIDER PROGRESS NOTE ---
Assessment/Plan - Problem List (1) Acute on chronic diastolic heart failure Assessment/Plan: BNP zafar and CXR still shows CHF. Willcontinue gentle diureis, iv daily Lasix. Monitor BNP, BMP, Mg daily. I discussed all diagnoses and updated the patient, daughter at bedside and son, Loyd was on the phone. (2) Severe sepsis Assessment/Plan: BP still low, despite a hold on Lasix, Cardizem drip and Finasteride. Lactic acid was 2.1 and has normalized. Pt defervesced on these antibiotics. Source of sepsis appers to be a hopsital acquired PNA, seen on CXR. Continue ICU care. No OOB and PT til BP improved. Continue low dose B-caryn or Cardizem + Dig for controlling rate. Continue stress doses of steroids. (3) Atrial fibrillation with RVR Assessment/Plan: Rate better. Continue Dig. Low doses of B-caryn or cardizem may be needed also. Continue to monitor on telemetry in ICU. INR still supratherapeutic, despite Coumadin on hold for 2 days. (4) HCAP (healthcare-associated pneumonia) Assessment/Plan: Cpntinue broad spectrum antibiotics, per Sepsis bundle. Continue Florastor. Await sputum and blood culture results. Will add Acapella for better expectoration. Continue Mucinex. Daily am CXR. (5) Aortic stenosis Assessment/Plan: This may be cause for his diastolic heart failure. It is important to avoid tachycardias. (6) Hyponatremia Assessment/Plan: Improving. Will add free-water fluid restriction, and restart Lasix. (7) Prostate cancer, primary, with metastasis from prostate to other site Assessment/Plan: Continue meds. - Current Meds Current Meds: Current Medications Generic Name Dose Route Start Last Admin Trade Name Freq PRN Reason Stop Dose Admin Acetaminophen 650 mg 05/17/18 01:18 05/18/18 16:20 Tylenol PO 650 mg Q4HR PRN Administration Pain 1 to 4 Hydrocodone Bitart/Acetaminophen 1 tab 05/17/18 01:18 05/17/18 18:14 [place] 5/325 PO 1 tab Q4HR PRN Administration Pain 5 to 7 Calcium Citrate 250 mg 05/18/18 21:00 05/19/18 08:35 PO 250 mg BID SIXTO Administration Cholecalciferol 2,000 unit 05/18/18 12:00 05/19/18 08:35 Vitamin D3 PO 2,000 unit DAILY SIXTO Administration Digoxin 125 mcg 05/17/18 09:00 05/19/18 08:36 Lanoxin PO 125 mcg DAILY SIXTO Administration Divalproex Sodium 500 mg 05/17/18 09:00 05/19/18 08:[address] PO 500 mg BID SIXTO Administration Ferrous Sulfate 325 mg 05/18/18 12:00 05/19/18 08:35 Feosol PO 325 mg DAILYWM SIXTO Administration Cefepime HCl 2 gm/ Sodium 100 mls @ 200 mls/hr 05/18/18 19:00 05/19/18 11:10 Chloride IV Infused Q8H SIXTO Infusion Vancomycin HCl 1 gm/ Sodium 250 mls @ 167 mls/hr 05/18/18 20:00 05/19/18 09: 50 Chloride IV Infused Q12H SIXTO Infusion Levothyroxine Sodium 150 mcg 05/18/18 07:00 05/19/18 06:01 Synthroid PO 150 mcg [id number]@0700 SIXTO Administration Lidocaine HCl 2.5 ml 05/17/18 16:21 05/17/18 17:48 Xylocaine Uro-Jet 2% UR 2.5 ml Q6H PRN Administration PAIN Methylprednisolone 40 mg 05/18/18 19:00 05/19/18 14:01 Solu-Medrol (40mg Vial) IVP 40 mg TID SIXTO Administration Mirtazapine 7.5 mg 05/17/18 01:30 05/18/18 20:30 Remeron PO 7.5 mg QPM SIXTO Administration Polyethylene Glycol 17 gm 05/17/18 09:00 05/19/18 09:47 Miralax PO Not Given DAILY SIXTO Sodium Chloride 10 ml 05/17/18 09:00 05/19/18 08:17 Normal Saline Flush 0.9% IVP 10 ml 0100,0900,1700 SIXTO Administration Tamsulosin HCl 0.4 mg 05/17/18 13:00 05/19/18 09:47 Flomax PO Not Given DAILY SIXTO Tramadol HCl 25 mg 05/17/18 01:22 05/18/18 20:28 Ultram PO 25 mg Q6H PRN Administration PAIN - Lab Result Fish Bone Diagrams: 05/19/18 04:45 05/19/18 04:45 - Additional Planning My Orders: My Active Orders 05/18/18 18:08 IO [RC] Q1HR Vital Signs [RC] Q1HR 05/18/18 18:09 IV Insert- Second IV Line [RC] ONCE 05/18/18 18:11 CUL, RESPIRATORY [RM] Stat 05/18/18 18:15 Severe Sepsis Onset Time [OTHERS] ONCE 05/18/18 18:44 CULTURE, BLOOD #1 [RM] Stat CULTURE, BLOOD #2 [RM] Stat 05/18/18 18:46 CUL, URINE [RM] Stat 05/18/18 19:00 Cefepime 2 gm Sodium Chloride 0.9% Minibag [Normal Saline 0.9% Minibag] 100 ml IV Q8H methylPREDNISolone SUCCINATE [SOLU-Medrol (40MG VIAL)] 40 mg IVP TID 05/18/18 20:00 Vancomycin Inj [Vancomycin] 1 gm Sodium Chloride 0.9% [Normal Saline 0.9%] 250 ml IV Q12H 05/19/18 12:48 Metoprolol Succinate [Toprol Xl] 12.5 mg PO BID 05/19/18 17:00 FUROSEMIDE INJ 40mg VIAL [LASIX INJ 40 mg VIAL] 40 mg IVP DAILY 05/20/18 07:30 VANCOMYCIN TROUGH [CHEM] Timed 05/20/18 09:00 Chest 1 View X-Ray [XR] DAILY 05/21/18 09:00 Chest 1 View X-Ray [XR] DAILY Subjective - Subjective Patient Reports: Feeling Better, Resting Comfortably Nursing Reports: Other (Am Lasix, Diltiazem and Finasteride not given due to BP of 85-90 this am) Objective Vital Signs: Vital Signs - 24 hr 05/18/18 05/18/18 05/18/18 18:00 18:21 19:00 Temperature 36.6 C 38.1 C H Heart Rate [ 123 H 111 H Monitoring electrodes] Respiratory 36 H 32 H Rate Blood Pressure 101/50 L 98/55 L [Right Brachial artery] O2 Saturation 95 94 05/18/18 05/18/18 05/18/18 20:00 21:00 22:00 Temperature Heart Rate [ 110 H 103 H 101 H Monitoring electrodes] Respiratory 29 H 36 H 34 H Rate Blood Pressure 103/59 L 100/57 L 104/52 L [Right Brachial artery] O2 Saturation 95 94 93 05/18/18 05/19/18 05/19/18 23:00 00:00 01:00 Temperature 36.1 C L Heart Rate [ 91 83 74 Monitoring electrodes] Respiratory 32 H 28 H 26 H Rate Blood Pressure 103/48 L 98/53 L 106/52 L [Right Brachial artery] O2 Saturation 95 95 97 05/19/18 05/19/18 05/19/18 02:00 03:00 04:00 Temperature 36.9 C Heart Rate [ 75 71 68 Monitoring electrodes] Respiratory 20 21 22 Rate Blood Pressure 88/51 L 105/58 L 84/48 L [Right Brachial artery] O2 Saturation 96 95 95 05/19/18 05/19/18 05/19/18 05:00 06:00 07:00 Temperature Heart Rate [ 83 80 69 Monitoring electrodes] Respiratory 21 19 21 Rate Blood Pressure 99/44 L 94/53 L 92/50 L [Right Brachial artery] O2 Saturation 98 97 96 05/19/18 05/19/18 05/19/18 08:00 09:00 10:00 Temperature 36.4 C L Heart Rate [ 84 92 90 Monitoring electrodes] Respiratory 21 26 H 25 H Rate Blood Pressure 85/53 L 98/42 L [Right Brachial artery] O2 Saturation 93 2 L 98 05/19/18 05/19/18 05/19/18 11:00 12:00 13:00 Temperature 35.9 C L Heart Rate [ 79 90 82 Monitoring electrodes] Respiratory 21 23 20 Rate Blood Pressure 91/42 L 84/46 L 94/43 L [Right Brachial artery] O2 Saturation 93 93 97 05/19/18 05/19/18 05/19/18 14:00 15:00 16:00 Temperature 36.5 C Heart Rate [ 88 87 99 Monitoring electrodes] Respiratory 21 24 20 Rate Blood Pressure 87/58 L 85/52 L 95/57 L [Right Brachial artery] O2 Saturation 94 94 95 Oxygen O2 Source Nasal cannula I&O (Last 24 Hrs): Intake and Output Totals x24h 05/17/18 05/18/18 05/19/18 23:59 23:59 23:59 Intake Total 1030.507 1530.996 1532.583 Output Total 1575 2757 582 Balance 91.108 -177.004 950.583 General: Alert, Oriented x3 HEENT: Mucous membr. moist/pink, Other (Pale) Neck: Supple, No JVD Neuro: Non Focal Cardiovascular: Regular rate, No murmurs Respiratory: Other (Weak cough, diminished diffusely) Abdomen: Normal bowel sounds, Soft Genitourinary: Other (Nunez draining yellow clear urine) Extremities: No clubbing, No edema - Results Results: Laboratory Results WBC 3.1 x10^3/uL (4.8-10.8) L 05/19/18 04:45 RBC 4.30 10^6/uL (4.70-6.10) L 05/19/18 04:45 Hgb 11.1 g/dL (14.0-18.0) L 05/19/18 04:45 Hct 34.2 % (42.0-52.0) L 05/19/18 04:45 MCV 79.6 fL (80.0-94.0) L 05/19/18 04:45 MCH 25.7 pg (27.0-31.0) L 05/19/18 04:45 MCHC 32.3 g/dL (32.0-36.0) 05/19/18 04:45 RDW 18.9 % (12.0-15.0) H 05/19/18 04:45 Plt Count 128 10^3/uL (130-450) L 05/19/18 04:45 MPV 8.2 fL (7.4-11.4) 05/19/18 04:45 Neut # (Auto) 2.2 10^3/uL (1.5-6.6) 05/19/18 04:45 Lymph # (Auto) 0.6 10^3/uL (1.5-3.5) L 05/19/18 04:45 [place] # (Auto) 0.3 10^3/uL (0.0-1.0) 05/19/18 04:45 Eos # (Auto) 0.0 10^3/uL (0.0-0.7) 05/19/18 04:45 Baso # (Auto) 0.0 10^3/uL (0.0-0.1) 05/19/18 04:45 Absolute Nucleated RBC 0.00 x10^3/uL 05/19/18 04:45 Nucleated RBC % 0.1 /100WBC 05/19/18 04:45 PT 46.5 secs (9.9-12.6) H 05/19/18 04:45 INR 4.4 (0.8-1.2) H 05/19/18 04:45 APTT 46.9 secs (24.9-33.3) H 05/18/18 18:44 Bld Gas Analysis Time 1739 05/18/18 17:35 Sample Site RIGHT BRACHIAL 05/18/18 17:35 ABG pH 7.52 (7.35-7.45) H 05/18/18 17:35 ABG pCO2 25 mmHg (34-45) L* 05/18/18 17:35 ABG pO2 70 mmHg (80-100) L 05/18/18 17:35 ABG HCO3 20.0 mmol/L (22.0-26.0) L 05/18/18 17:35 ABG Total CO2 20.8 MMOL/L (21.0-29.0) L 05/18/18 17:35 ABG O2 Saturation 95 % (94-98) 05/18/18 17:35 ABG Base Excess -1.5 mmol/L (-2.0-3.0) 05/18/18 17:35 Sj Test NOT APPLICABLE 05/18/18 17:35 O2 Delivery Device OXYMASK 05/18/18 17:35 O2 Liters/Min 6.00 LPM 05/18/18 17:35 Sodium 131 mmol/L (135-145) L 05/19/18 04:45 Potassium 4.3 mmol/L (3.5-5.0) 05/19/18 04:45 Chloride 99 mmol/L (101-111) L 05/19/18 04:45 Carbon Dioxide 22 mmol/L (21-32) 05/19/18 04:45 Anion Gap 10.0 (6-13) 05/19/18 04:45 BUN 22 mg/dL (6-20) H 05/19/18 04:45 Creatinine 1.2 mg/dL (0.6-1.2) 05/19/18 04:45 Estimated GFR (MDRD) 57 (>89) L 05/19/18 04:45 Glucose 182 mg/dL (70-100) H 05/19/18 04:45 Lactic Acid 1.5 mmol/L (0.5-2.2) 05/18/18 21:28 Calcium 7.6 mg/dL (8.5-10.3) L 05/19/18 04:45 Phosphorus 4.0 mg/dL (2.5-4.6) 05/16/18 21:35 Magnesium 2.0 mg/dL (1.7-2.8) 05/16/18 21:35 Total Bilirubin 0.7 mg/dL (0.2-1.0) 05/19/18 04:45 AST 55 IU/L (10-42) H 05/19/18 04:45 ALT 33 IU/L (10-60) 05/19/18 04:45 Alkaline Phosphatase 427 IU/L (42-121) H 05/19/18 04:45 Troponin I < 0.04 ng/mL (<0.49) 05/19/18 09:45 C-Reactive Protein 15.9 mg/dL (0-1.0) H 05/18/18 18:44 B-Natriuretic Peptide 900 pg/mL (5-100) H 05/19/18 04:45 Total Protein 6.1 g/dL (6.7-8.2) L 05/19/18 04:45 Albumin 2.8 g/dL (3.2-5.5) L 05/19/18 04:45 Globulin 3.3 g/dL (2.1-4.2) 05/19/18 04:45 Albumin/Globulin Ratio 0.8 (1.0-2.2) L 05/19/18 04:45 Lipase 23 U/L (22-51) 05/16/18 21:35 TSH 3.49 uIU/mL (0.34-5.60) 05/16/18 21:35 Urine Color YELLOW 05/16/18 21:50 Urine Clarity CLEAR (CLEAR) 05/16/18 21:50 Urine pH 6.5 PH (5.0-7.5) 05/16/18 21:50 Ur Specific [place] 1.015 (1.002-1.030) 05/16/18 21:50 Urine Protein TRACE mg/dL (NEGATIVE) 05/16/18 21:50 Urine Glucose (UA) NEGATIVE mg/dL (NEGATIVE) 05/16/18 21:50 Urine Ketones 15 mg/dL (NEGATIVE) H 05/16/18 21:50 Urine Occult Blood TRACE-INTA (NEGATIVE) 05/16/18 21:50 Urine Nitrite NEGATIVE (NEGATIVE) 05/16/18 21:50 Urine Bilirubin NEGATIVE (NEGATIVE) 05/16/18 21:50 Urine Urobilinogen 2 E.U./dL (NORMAL) H 05/16/18 21:50 Ur Leukocyte Esterase NEGATIVE (NEGATIVE) 05/16/18 21:50 Ur Microscopic Review NOT INDICATED 05/16/18 21:50 Urine Culture Comments NOT INDICATED 05/16/18 21:50 Last Dose Date 05/18/18 05/19/18 04:45 Last Dose Time [id number] 05/19/18 04:45 Digoxin 1.1 ng/mL 05/19/18 04:45 - Procedures Procedures: Procedures CONTROL POSTOP PROST HEM (05/31/13) OTH TRANSURETHRAL PROSTATECTOMY (05/31/13) SERUM TRANSFUSION NEC (05/31/13) TU BLADDER CLEARANCE (05/31/13)
[2018-05-19] MEDS: traMADol 50 MG TABLET PO PRN (18:02)
[2018-05-19] MEDS: guaiFENesin 600 MG TABLET PO SCH ×2 (20:03→20:23)
[2018-05-19] MEDS: SACCHAROMYCES BOULARDII 250 MG CAPSULE PO SCH (20:10)
[2018-05-19] MEDS: MIRTAZAPINE 15 MG TABLET PO SCH (20:35)
[2018-05-20] MEDS: HYDROcod/ACETAM 5/325 MG TABLET PO PRN (01:51)
[2018-05-20] MEDS: SODIUM CHLORIDE FLUSH 0.9% 10 ML SYRINGE IVP SCH ×4 (01:51→21:09)
[2018-05-20] MEDS: CEFEPIME 2 GM in SODIUM CHLORIDE 0.9% MINIBAG 100 ML IV SCH ×3 (03:04→18:50)
[2018-05-20] MEDS: methylPREDNISolone SUCCINATE 40 MG/ML VIAL IVP SCH ×3 (05:57→21:09)
[2018-05-20 07:56] LABS: BASOPHILS % (AUTO) 0.4 %; HGB - HEMOGLOBIN 11.4 g/dL (14.0-18.0); LYMPHOCYTES # (AUTO) 0.7 10^3/uL (1.5-3.5); LYMPHOCYTES % (AUTO) 15.9 %; MEAN CORPUSCULAR HEMOGLOBIN 25.7 pg (27.0-31.0); MEAN CORPUSCULAR VOLUME 77.9 fL (80.0-94.0); MEAN PLATELET VOLUME 8.2 fL (7.4-11.4); MONOCYTES # (AUTO) 0.4 10^3/uL (0.0-1.0); MONOCYTES % (AUTO) 8.8 %; NEUTROPHILS # (AUTO) 3.4 10^3/uL (1.5-6.6); NEUTROPHILS % (AUTO) 74.9 %; PLT - PLATELET COUNT 159 10^3/uL (130-450); RED BLOOD COUNT 4.42 10^6/uL (4.70-6.10); RED CELL DISTRIBUTION WIDTH 18.9 % (12.0-15.0); WHITE BLOOD COUNT 4.6 x10^3/uL (4.8-10.8)
[2018-05-20 08:03] LABS: INR 3.9 (0.8-1.2); PT - PROTHROMBIN TIME 41.9 secs (9.9-12.6)
[2018-05-20 08:08] LABS: VANCOMYCIN,TROUGH 16.4 ug/mL (10.0-20.0)
[2018-05-20 08:09] LABS: ALBUMIN 2.4 g/dL (3.2-5.5); ALBUMIN/GLOBULIN RATIO 0.7 (1.0-2.2); BILIRUBIN,TOTAL 0.9 mg/dL (0.2-1.0); CALCIUM 8.2 mg/dL (8.5-10.3); CREATININE 1.1 mg/dL (0.6-1.2); TOTAL PROTEIN 5.8 g/dL (6.7-8.2)
[2018-05-20] MEDS: VANCOMYCIN INJ 1 GM in SODIUM CHLORIDE 0.9% 250 ML IV SCH ×2 (08:30→19:55)
[2018-05-20] MEDS: FUROSEMIDE 40 MG/4 ML VIAL IVP SCH (08:35)
[2018-05-20] MEDS: guaiFENesin 600 MG TABLET PO SCH ×2 (08:35→21:11)
[2018-05-20] MEDS: METOPROLOL SUCCINATE 25 MG TABLET PO SCH ×2 (08:36→21:12)
[2018-05-20] MEDS: SACCHAROMYCES BOULARDII 250 MG CAPSULE PO SCH ×2 (08:36→17:28)
[2018-05-20] MEDS: DIVALPROEX DR 250 MG TABLET PO SCH ×2 (08:36→21:10)
[2018-05-20] MEDS: FERROUS SULFATE 325 MG TABLET PO SCH (08:36)
[2018-05-20] MEDS: TAMSULOSIN 0.4 MG CAPSULE PO SCH (08:36)
[2018-05-20] MEDS: CHOLECALCIFEROL 1,000 UNIT TABLET PO SCH (08:36)
[2018-05-20] MEDS: CALCIUM CITRATE 250 MG TABLET PO SCH ×2 (08:36→21:10)
[2018-05-20] MEDS: POLYETHYLENE GLYCOL 3350 17 GM PACKET PO SCH (08:37)
[2018-05-20] MEDS: DIGOXIN 125 MCG TABLET PO SCH (08:37)
[2018-05-20 08:46] LABS: % IRON SATURATION 38 % (20-50); IRON 67 ug/dL (45-182); TOTAL IRON BINDING CAPACITY 176 ug/dL (250-450); TRANSFERRIN 126 mg/dL (180-329)
[2018-05-20] MEDS ORDERED: FUROSEMIDE 40 MG/4 ML VIAL IVP SCH (09:00)
--- NOTE | 2018-05-20 11:11 | PROVIDER PROGRESS NOTE ---
Assessment/Plan - Problem List (1) Acute on chronic diastolic heart failure Assessment/Plan: BNP has significantly improved. Will change to po Lasix daily. Continue Dig and Metoprolol. (2) Severe sepsis Assessment/Plan: WBC has stopped dropping. BP has stabilized. All cultures are neg thus far Continue empiric iv antibiotics. (3) Atrial fibrillation with RVR Assessment/Plan: Pt is now only intermittently tachycardic. Continue Dig, will increase the dose. Continue B-caryn, will increase the dose. INR is still excessive at 3.9, will continue to hold Coumadin and follow INR daily. (4) HCAP (healthcare-associated pneumonia) Assessment/Plan: CXR is showing LLL infiltrate. Cultures are neg thus far. Continue empiric antibiotics iv. Continue Mucinex and Acapella for expectoration. (5) Aortic stenosis Assessment/Plan: Stable (6) Hyponatremia Assessment/Plan: Improving with current diet and fluid restriction. Will liberalize fluid restriction somewhat. (7) Prostate cancer, primary, with metastasis from prostate to other site Assessment/Plan: Stable - Current Meds Current Meds: Current Medications Generic Name Dose Route Start Last Admin Trade Name Freq PRN Reason Stop Dose Admin Acetaminophen 650 mg 05/17/18 01:18 05/18/18 16:20 Tylenol PO 650 mg Q4HR PRN Administration Pain 1 to 4 Hydrocodone Bitart/Acetaminophen 1 tab 05/17/18 01:18 05/20/18 01:51 [place] 5/325 PO 1 tab Q4HR PRN Administration Pain 5 to 7 Calcium Citrate 250 mg 05/18/18 21:00 05/20/18 08:36 PO 250 mg BID SIXTO Administration Cholecalciferol 2,000 unit 05/18/18 12:00 05/20/18 08:36 Vitamin D3 PO 2,000 unit DAILY SIXTO Administration Divalproex Sodium 500 mg 05/17/18 09:00 05/20/18 08:[address] PO 500 mg BID SIXTO Administration Ferrous Sulfate 325 mg 05/18/18 12:00 05/20/18 08:36 Feosol PO 325 mg DAILYWM SIXTO Administration Guaifenesin 600 mg 05/19/18 19:00 05/20/18 08:35 Mucinex PO 600 mg BID SIXTO Administration Cefepime HCl 2 gm/ Sodium 100 mls @ 200 mls/hr 05/18/18 19:00 05/20/18 10:45 Chloride IV Infused Q8H SIXTO Infusion Vancomycin HCl 1 gm/ Sodium 250 mls @ 167 mls/hr 05/18/18 20:00 05/20/18 10: 00 Chloride IV Infused Q12H SIXTO Infusion Levothyroxine Sodium 150 mcg 05/18/18 07:00 05/19/18 06:01 Synthroid PO 150 mcg [id number] SIXTO Administration Lidocaine HCl 2.5 ml 05/17/18 16:21 05/17/18 17:48 Xylocaine Uro-Jet 2% UR 2.5 ml Q6H PRN Administration PAIN Methylprednisolone 40 mg 05/18/18 19:00 05/20/18 05:57 Solu-Medrol (40mg Vial) IVP 40 mg TID SIXTO Administration Mirtazapine 7.5 mg 05/17/18 01:30 05/19/18 20:35 Remeron PO 7.5 mg QPM SIXTO Administration Polyethylene Glycol 17 gm 05/17/18 09:00 05/20/18 08:37 Miralax PO Not Given DAILY SIXTO Saccharomyces Boulardii 250 mg 05/19/18 19:00 05/20/18 08:36 Florastor PO 250 mg BIDWM SIXTO Administration Sodium Chloride 10 ml 05/17/18 09:00 05/20/18 09:14 Normal Saline Flush 0.9% IVP 10 ml 0100,0900,1700 SIXTO Administration Tamsulosin HCl 0.4 mg 05/17/18 13:00 05/20/18 08:36 Flomax PO 0.4 mg DAILY SIXTO Administration Tramadol HCl 25 mg 05/17/18 01:22 05/19/18 18:02 Ultram PO 25 mg Q6H PRN Administration PAIN - Lab Result Fish Bone Diagrams: 05/20/18 07:30 05/20/18 07:30 - Additional Planning My Orders: My Active Orders 05/20/18 Evaluate and Treat OT [OT] Routine Evaluate and Treat PT [PT] Routine 05/20/18 09:00 Chest 1 View X-Ray [XR] DAILY 05/20/18 11:08 Transfer [Admit \ Transfer \ Status] [RC] .ONCE 05/20/18 12:00 Furosemide [Lasix] 20 mg PO DAILY 05/20/18 21:00 Metoprolol Succinate [Toprol Xl] 25 mg PO BID 05/21/18 05:00 CMP [COMPREHENSIVE METABOLIC PANEL] [CHEM] DAILYLAB DIGOXIN [CHEM] Routine PT WITH INR [COAG] DAILYLAB 05/21/18 09:00 Chest 1 View X-Ray [XR] DAILY Digoxin [Lanoxin] 250 mcg PO DAILY 05/22/18 05:00 CMP [COMPREHENSIVE METABOLIC PANEL] [CHEM] DAILYLAB PT WITH INR [COAG] DAILYLAB 05/23/18 05:00 CMP [COMPREHENSIVE METABOLIC PANEL] [CHEM] DAILYLAB PT WITH INR [COAG] DAILYLAB Subjective - Subjective Patient Reports: Feeling Better, Resting Comfortably Nursing Reports: Other (Pt was able to stand and pivot to sit in a chair.) Objective Vital Signs: Vital Signs - 24 hr 05/19/18 05/19/18 05/19/18 12:00 13:00 14:00 Temperature 35.9 C L Heart Rate [ 90 82 88 Monitoring electrodes] Respiratory 23 20 21 Rate Blood Pressure 84/46 L 94/43 L 87/58 L [Right Brachial artery] O2 Saturation 93 97 94 05/19/18 05/19/18 05/19/18 15:00 16:00 17:00 Temperature 36.5 C Heart Rate [ 87 99 91 Monitoring electrodes] Respiratory 24 20 24 Rate Blood Pressure 85/52 L 95/57 L 96/57 L [Right Brachial artery] O2 Saturation 94 95 96 05/19/18 05/19/18 05/19/18 18:00 19:00 20:00 Temperature 36.5 C Heart Rate [ 97 101 H 99 Monitoring electrodes] Respiratory 25 H 19 25 H Rate Blood Pressure 96/51 L 83/19 L 108/54 L [Right Brachial artery] O2 Saturation 97 95 95 05/19/18 05/19/18 05/19/18 20:57 22:00 23:00 Temperature Heart Rate [ 93 102 H 107 H Monitoring electrodes] Respiratory 23 23 26 H Rate Blood Pressure 101/76 124/66 140/68 H [Right Brachial artery] O2 Saturation 98 96 96 05/20/18 05/20/18 05/20/18 00:00 01:00 02:00 Temperature 36.6 C Heart Rate [ 94 97 98 Monitoring electrodes] Respiratory 22 23 23 Rate Blood Pressure 131/71 H 129/73 140/68 H [Right Brachial artery] O2 Saturation 95 96 98 05/20/18 05/20/18 05/20/18 03:00 04:00 05:00 Temperature 36.6 C Heart Rate [ 97 104 H 94 Monitoring electrodes] Respiratory 21 19 21 Rate Blood Pressure 124/71 121/78 133/76 H [Right Brachial artery] O2 Saturation 97 96 96 05/20/18 05/20/18 05/20/18 06:00 06:36 08:00 Temperature Heart Rate [ 108 H 95 103 H Monitoring electrodes] Respiratory 17 22 23 Rate Blood Pressure 145/71 H 122/73 100/72 [Right Brachial artery] O2 Saturation 96 95 96 05/20/18 05/20/18 05/20/18 09:00 10:00 11:00 Temperature 36.4 C L Heart Rate [ 105 H 84 Monitoring electrodes] Respiratory 24 17 26 H Rate Blood Pressure 106/63 114/59 L 98/57 L [Right Brachial artery] O2 Saturation 94 95 92 Oxygen O2 Source Nasal cannula I&O (Last 24 Hrs): Intake and Output Totals x24h 05/18/18 05/19/18 05/20/18 23:59 23:59 23:59 Intake Total 2579.996 2933.000 660.00 Output Total 2757 1302 710 Balance -248.296 6201.000 -50.00 General: Alert, Oriented x3 HEENT: Mucous membr. moist/pink, Other (Pale) Neck: Supple, No JVD Neuro: Non Focal Cardiovascular: No murmurs Respiratory: Other (Diminished bilat anteriorly) Abdomen: Normal bowel sounds, Soft Extremities: No edema - Results Results: Laboratory Results WBC 4.6 x10^3/uL (4.8-10.8) L 05/20/18 07:30 RBC 4.42 10^6/uL (4.70-6.10) L 05/20/18 07:30 Hgb 11.4 g/dL (14.0-18.0) L 05/20/18 07:30 Hct 34.5 % (42.0-52.0) L 05/20/18 07:30 MCV 77.9 fL (80.0-94.0) L 05/20/18 07:30 MCH 25.7 pg (27.0-31.0) L 05/20/18 07:30 MCHC 33.0 g/dL (32.0-36.0) 05/20/18 07:30 RDW 18.9 % (12.0-15.0) H 05/20/18 07:30 Plt Count 159 10^3/uL (130-450) 05/20/18 07:30 MPV 8.2 fL (7.4-11.4) 05/20/18 07:30 Neut # (Auto) 3.4 10^3/uL (1.5-6.6) 05/20/18 07:30 Lymph # (Auto) 0.7 10^3/uL (1.5-3.5) L 05/20/18 07:30 [place] # (Auto) 0.4 10^3/uL (0.0-1.0) 05/20/18 07:30 Eos # (Auto) 0.0 10^3/uL (0.0-0.7) 05/20/18 07:30 Baso # (Auto) 0.0 10^3/uL (0.0-0.1) 05/20/18 07:30 Absolute Nucleated RBC 0.00 x10^3/uL 05/20/18 07:30 Nucleated RBC % 0.1 /100WBC 05/20/18 07:30 PT 41.9 secs (9.9-12.6) H 05/20/18 07:30 INR 3.9 (0.8-1.2) H 05/20/18 07:30 APTT 46.9 secs (24.9-33.3) H 05/18/18 18:44 Bld Gas Analysis Time 1739 05/18/18 17:35 Sample Site RIGHT BRACHIAL 05/18/18 17:35 ABG pH 7.52 (7.35-7.45) H 05/18/18 17:35 ABG pCO2 25 mmHg (34-45) L* 05/18/18 17:35 ABG pO2 70 mmHg (80-100) L 05/18/18 17:35 ABG HCO3 20.0 mmol/L (22.0-26.0) L 05/18/18 17:35 ABG Total CO2 20.8 MMOL/L (21.0-29.0) L 08/30/18 17:35 ABG O2 Saturation 95 % (94-98) 05/18/18 17:35 ABG Base Excess -1.5 mmol/L (-2.0-3.0) 05/18/18 17:35 Sj Test NOT APPLICABLE 05/18/18 17:35 O2 Delivery Device OXYMASK 05/18/18 17:35 O2 Liters/Min 6.00 LPM 05/18/18 17:35 Sodium 134 mmol/L (135-145) L 05/20/18 07:30 Potassium 4.4 mmol/L (3.5-5.0) 05/20/18 07:30 Chloride 101 mmol/L (101-111) 05/20/18 07:30 Carbon Dioxide 23 mmol/L (21-32) 05/20/18 07:30 Anion Gap 10.0 (6-13) 05/20/18 07:30 BUN 42 mg/dL (6-20) H 05/20/18 07:30 Creatinine 1.1 mg/dL (0.6-1.2) 05/20/18 07:30 Estimated GFR (MDRD) 63 (>89) L 05/20/18 07:30 Glucose 212 mg/dL (70-100) H 05/20/18 07:30 Lactic Acid 1.5 mmol/L (0.5-2.2) 05/18/18 21:28 Calcium 8.2 mg/dL (8.5-10.3) L 05/20/18 07:30 Phosphorus 4.0 mg/dL (2.5-4.6) 05/16/18 21:35 Magnesium 2.0 mg/dL (1.7-2.8) 05/16/18 21:35 Iron 67 ug/dL (45-182) 05/20/18 07:30 TIBC 176 ug/dL (250-450) L 05/20/18 07:30 % Saturation 38 % (20-50) 05/20/18 07:30 Transferrin 126 mg/dL (180-329) L 05/20/18 07:30 Total Bilirubin 0.9 mg/dL (0.2-1.0) 05/20/18 07:30 AST 78 IU/L (10-42) H 05/20/18 07:30 ALT 56 IU/L (10-60) 05/20/18 07:30 Alkaline Phosphatase 358 IU/L (42-121) H 05/20/18 07:30 Troponin I < 0.04 ng/mL (<0.49) 05/19/18 09:45 C-Reactive Protein 15.9 mg/dL (0-1.0) H 05/18/18 18:44 B-Natriuretic Peptide 375 pg/mL (5-100) H 05/20/18 07:30 Total Protein 5.8 g/dL (6.7-8.2) L 05/20/18 07:30 Albumin 2.4 g/dL (3.2-5.5) L 05/20/18 07:30 Globulin 3.4 g/dL (2.1-4.2) 05/20/18 07:30 Albumin/Globulin Ratio 0.7 (1.0-2.2) L 05/20/18 07:30 Lipase 23 U/L (22-51) 05/16/18 21:35 TSH 3.49 uIU/mL (0.34-5.60) 05/16/18 21:35 Urine Color YELLOW 05/16/18 21:50 Urine Clarity CLEAR (CLEAR) 05/16/18 21:50 Urine pH 6.5 PH (5.0-7.5) 05/16/18 21:50 Ur Specific [place] 1.015 (1.002-1.030) 05/16/18 21:50 Urine Protein TRACE mg/dL (NEGATIVE) 05/16/18 21:50 Urine Glucose (UA) NEGATIVE mg/dL (NEGATIVE) 05/16/18 21:50 Urine Ketones 15 mg/dL (NEGATIVE) H 05/16/18 21:50 Urine Occult Blood TRACE-INTA (NEGATIVE) 05/16/18 21:50 Urine Nitrite NEGATIVE (NEGATIVE) 05/16/18 21:50 Urine Bilirubin NEGATIVE (NEGATIVE) 05/16/18 21:50 Urine Urobilinogen 2 E.U./dL (NORMAL) H 05/16/18 21:50 Ur Leukocyte Esterase NEGATIVE (NEGATIVE) 05/16/18 21:50 Ur Microscopic Review NOT INDICATED 05/16/18 21:50 Urine Culture Comments NOT INDICATED 05/16/18 21:50 Last Dose Date 05/19/18 05/20/18 07:30 Last Dose Time 213305/20/18 07:30 Vancomycin Trough 16.4 ug/mL (10.0-20.0) 05/20/18 07:30 Digoxin 1.1 ng/mL 05/19/18 04:45 - Procedures Procedures: Procedures CONTROL POSTOP PROST HEM (05/31/13) OTH TRANSURETHRAL PROSTATECTOMY (05/31/13) SERUM TRANSFUSION NEC (05/31/13) TU BLADDER CLEARANCE (05/31/13)
--- NOTE | 2018-05-20 11:57 | XRAY Report ---
Reason: CHF and Hosp Acquired Pneumonia Procedure Date: 05/20/2018 Accession Number: [id number] / [id number] Procedure: XR - Chest 1 View X-Ray CPT Code: 86458 FULL RESULT: EXAM: CHEST RADIOGRAPHY EXAM DATE: 05/20/2018 11:00 AM. CLINICAL HISTORY: CHF and Hosp Acquired Pneumonia. Prostate cancer. COMPARISON: 05/19/2018. CT abdomen and pelvis 11/16/2017. TECHNIQUE: Upright AP view. FINDINGS: Lungs/Pleura: Persistent moderate left basilar lung consolidation. New mild linear band of atelectasis in the mid to lower right lung. No interstitial abnormality. No pneumothorax or gross pleural fluid. Mediastinum: Mild cardiomegaly, left-sided coronary artery stent, as before. Mild aortic arch calcification. Other: The spine appears diffusely hyperdense consistent with sclerotic metastatic disease, as before. IMPRESSION: 1. Persistent moderate left basilar lung consolidation which may reflect pneumonia. 2. Sclerotic osseous metastatic disease, as before. 3. Mild cardiomegaly, as before. RADIA
[2018-05-20] MEDS: FUROSEMIDE 20 MG TABLET PO SCH (12:50)
[2018-05-20] MEDS ORDERED: SODIUM CHLORIDE FLUSH 0.9% 10 ML SYRINGE ONE (19:48)
[2018-05-20] MEDS: MIRTAZAPINE 15 MG TABLET PO SCH (21:11)
[2018-05-20] MEDS: traMADol 50 MG TABLET PO PRN (21:12)
[2018-05-21] MEDS: HYDROcod/ACETAM 5/325 MG TABLET PO PRN (00:15)
[2018-05-21] MEDS: CEFEPIME 2 GM in SODIUM CHLORIDE 0.9% MINIBAG 100 ML IV SCH ×2 (03:02→11:24)
[2018-05-21] MEDS: traMADol 50 MG TABLET PO PRN (03:15)
[2018-05-21] MEDS: SODIUM CHLORIDE FLUSH 0.9% 10 ML SYRINGE IVP PRN ×5 (03:39→21:14)
[2018-05-21] MEDS: methylPREDNISolone SUCCINATE 40 MG/ML VIAL IVP SCH ×3 (05:48→21:14)
[2018-05-21 06:34] LABS: INR 3.8 (0.8-1.2)
[2018-05-21 06:47] LABS: ALBUMIN 2.6 g/dL (3.2-5.5); ALBUMIN/GLOBULIN RATIO 0.8 (1.0-2.2); CALCIUM 8.5 mg/dL (8.5-10.3); CREATININE 1.2 mg/dL (0.6-1.2); TOTAL PROTEIN 5.9 g/dL (6.7-8.2)
[2018-05-21 07:01] LABS: DIGOXIN 0.9 ng/mL
[2018-05-21] MEDS: VANCOMYCIN INJ 1 GM in SODIUM CHLORIDE 0.9% 250 ML IV SCH (08:34)
[2018-05-21] MEDS: FERROUS SULFATE 325 MG TABLET PO SCH (08:35)
[2018-05-21] MEDS: POLYETHYLENE GLYCOL 3350 17 GM PACKET PO SCH (08:35)
[2018-05-21] MEDS: guaiFENesin 600 MG TABLET PO SCH ×2 (08:36→21:12)
[2018-05-21] MEDS: CALCIUM CITRATE 250 MG TABLET PO SCH ×2 (08:36→21:14)
[2018-05-21] MEDS: TAMSULOSIN 0.4 MG CAPSULE PO SCH (08:36)
[2018-05-21] MEDS: METOPROLOL SUCCINATE 25 MG TABLET PO SCH ×2 (08:36→21:12)
[2018-05-21] MEDS: FUROSEMIDE 20 MG TABLET PO SCH (08:36)
[2018-05-21] MEDS: DIVALPROEX DR 250 MG TABLET PO SCH ×2 (08:36→21:12)
[2018-05-21] MEDS: CHOLECALCIFEROL 1,000 UNIT TABLET PO SCH (08:36)
[2018-05-21] MEDS: SACCHAROMYCES BOULARDII 250 MG CAPSULE PO SCH ×2 (08:36→18:08)
[2018-05-21] MEDS: SODIUM CHLORIDE FLUSH 0.9% 10 ML SYRINGE IVP SCH ×3 (08:36→23:43)
[2018-05-21] MEDS ORDERED: DIGOXIN 125 MCG TABLET PO SCH (09:00)
--- NOTE | 2018-05-21 11:17 | XRAY Report ---
Reason: CHF and Hosp Acquired Pneumonia Procedure Date: 05/21/2018 Accession Number: [id number] / [id number] Procedure: XR - Chest 1 View X-Ray CPT Code: 82909 FULL RESULT: EXAM: CHEST RADIOGRAPHY EXAM DATE: 05/21/2018 09:55 AM. CLINICAL HISTORY: CHF and hospital acquired pneumonia. COMPARISON: CHEST 1 VIEW 05/20/2018 10:58 AM. TECHNIQUE: 1 view. FINDINGS: Lungs/Pleura: Increased density behind the left heart. Minimal plate-like atelectasis right lung base. Upper chest is clear. Mediastinum: Cardiomegaly. Other: No fractures. Loose body right shoulder joint. IMPRESSION: 1. Increased density behind the left heart, atelectasis versus infiltrate. Plate-like atelectasis right lung base. 2. Cardiomegaly. 3. No fractures. Loose body right shoulder joint. RADIA
--- NOTE | 2018-05-21 12:20 | PROVIDER PROGRESS NOTE ---
Assessment/Plan - Problem List (1) Acute on chronic diastolic heart failure Assessment/Plan: Pt still requires O2 at 3L n.c. He is on oral Lasix and has a fluid restriction of 2000 cc/day total. Tomorrow, will assess for home O2 with an exercise oximetryv test by RT, as he will likely be ready for Dch tomorrow. He will be seen by PT today, for determination if PT rehab will be needed. If so, he has been accepted at [facility] by his [place] insurance, per [employer]. I discussed this plan with Pt, and in the room were his , son, daughter and [id number]. I reviewed his cardiac diagnoses with all of them as well. (2) Elevated LFTs Assessment/Plan: Pt denies any abdominal pain. No diarrhea. I's and O's have been neg, not positive to suspect liver congestion. Will stop any hepatotoxic meds. Will recheck labs this evening and if climbing, he will need abdomen ultrasound or CT imaging. (3) Severe sepsis Assessment/Plan: Tachycardia and fever and elevated lactic acid and altered mental status have all resolved. The source was likely a pneumonia. (4) Atrial fibrillation with RVR Assessment/Plan: Improved HR on his meds. INR 3.8 today and therefor the Coumadin will probably be restarted tomorrow. (5) HCAP (healthcare-associated pneumonia) Assessment/Plan: Patient had improvement on empiric iv antibiotics. Continue antibiotics to complete a 10-14 day course. No cultures were positive, therefore empiric antibiotic choice will be Clindamycin 300 mg po qid (with meals). Continue Mucinex and Acapella for cough and expectoration. Pt needs help with using the Acapella, he told me. (6) Aortic stenosis Assessment/Plan: Moderate-severe by Echo. This is undoubtedly adding to diastolic LV dysfunction and moderate pulmonary HTN. Avoiding tachycardia is important., to allow LV filling and maximize cardiac output. (7) Prostate cancer, primary, with metastasis from prostate to other site Assessment/Plan: Stable (8) Hyponatremia Assessment/Plan: Resolved - Current Meds Current Meds: Current Medications Generic Name Dose Route Start Last Admin Trade Name Freq PRN Reason Stop Dose Admin Acetaminophen 650 mg 05/17/18 01:18 05/18/18 16:20 Tylenol PO 650 mg Q4HR PRN Administration Pain 1 to 4 Calcium Citrate 250 mg 05/18/18 21:00 05/21/18 08:36 PO 250 mg BID SIXTO Administration Cholecalciferol 2,000 unit 05/18/18 12:00 05/21/18 08:36 Vitamin D3 PO 2,000 unit DAILY SIXTO Administration Digoxin 250 mcg 05/21/18 09:00 05/21/18 08:35 Lanoxin PO 250 mcg DAILY SIXTO Administration Divalproex Sodium 500 mg 05/17/18 09:00 05/21/18 08:[address] PO 500 mg BID SIXTO Administration Ferrous Sulfate 325 mg 05/18/18 12:00 05/21/18 08:35 Feosol PO 325 mg DAILYWM SIXTO Administration Furosemide 20 mg 05/20/18 12:00 05/21/18 08:36 Lasix PO 20 mg DAILY SIXTO Administration Guaifenesin 600 mg 05/19/18 19:00 05/21/18 08:36 Mucinex PO 600 mg BID SIXTO Administration Cefepime HCl 2 gm/ Sodium 100 mls @ 200 mls/hr 05/18/18 19:00 05/21/18 12:01 Chloride IV Infused Q8H SIXTO Infusion Vancomycin HCl 1 gm/ Sodium 250 mls @ 167 mls/hr 05/18/18 20:00 05/21/18 10: 24 Chloride IV Infused Q12H SIXTO Infusion Levothyroxine Sodium 150 mcg 05/18/18 07:00 05/19/18 06:01 Synthroid PO 150 mcg [id number]@0700 SIXTO Administration Lidocaine HCl 2.5 ml 05/17/18 16:21 05/17/18 17:48 Xylocaine Uro-Jet 2% UR 2.5 ml Q6H PRN Administration PAIN Methylprednisolone 40 mg 05/18/18 19:00 05/21/18 05:48 Solu-Medrol (40mg Vial) IVP 40 mg TID SIXTO Administration Metoprolol Succinate 25 mg 05/20/18 21:00 05/21/18 08:36 Toprol Xl PO 25 mg BID SIXTO Administration Mirtazapine 7.5 mg 05/17/18 01:30 05/20/18 21:11 Remeron PO 7.5 mg QPM SIXTO Administration Polyethylene Glycol 17 gm 05/17/18 09:00 05/21/18 08:35 Miralax PO 17 gm DAILY SIXOT Administration Saccharomyces Boulardii 250 mg 05/19/18 19:00 05/21/18 08:36 Florastor PO 250 mg BIDWM SIXTO Administration Sodium Chloride 10 ml 05/17/18 01:18 05/21/18 08:37 Normal Saline Flush 0.9% IVP 10 ml PRN PRN Administration NEEDED PER PROVIDER ORDERS Sodium Chloride 10 ml 05/17/18 09:00 05/21/18 08:36 Normal Saline Flush 0.9% IVP 10 ml 0100,0900,1700 SIXTO Administration Tamsulosin HCl 0.4 mg 05/17/18 13:00 05/21/18 08:36 Flomax PO 0.4 mg DAILY SIXTO Administration Tramadol HCl 25 mg 05/17/18 01:22 05/21/18 03:15 Ultram PO 25 mg Q6H PRN Administration PAIN - Lab Result Fish Bone Diagrams: 05/20/18 07:30 05/21/18 06:00 - Additional Planning My Orders: My Active Orders 05/20/18 12:00 Furosemide [Lasix] 20 mg PO DAILY 05/20/18 21:00 Metoprolol Succinate [Toprol Xl] 25 mg PO BID 05/21/18 09:00 Digoxin [Lanoxin] 250 mcg PO DAILY 05/22/18 05:00 CMP [COMPREHENSIVE METABOLIC PANEL] [CHEM] DAILYLAB PT WITH INR [COAG] DAILYLAB 05/22/18 09:00 Oxygen Desat. Study w/Exercise [RC] .ONCE 05/23/18 05:00 CMP [COMPREHENSIVE METABOLIC PANEL] [CHEM] DAILYLAB PT WITH INR [COAG] DAILYLAB Subjective - Subjective Patient Reports: Feeling Better, Other (Son noticed that he was confused when walking without O2 on. A sat was 86% at that point (done by the familY).) Objective Vital Signs: Vital Signs - 24 hr 05/20/18 05/20/18 05/20/18 15:33 19:44 21:12 Temperature 36.3 C L 36.5 C Heart Rate [ 82 85 83 Monitoring electrodes] Respiratory 24 20 Rate Blood Pressure [Left Brachial artery] Blood Pressure 120/69 141/64 H 149/73 H [Right Brachial artery] O2 Saturation 95 96 05/20/18 05/21/18 05/21/18 23:50 05:20 07:50 Temperature 36.8 C 36.3 C L 36.4 C L Heart Rate [ 78 76 78 Monitoring electrodes] Respiratory 16 16 20 Rate Blood Pressure 153/72 H [Left Brachial artery] Blood Pressure 158/61 H 133/71 H [Right Brachial artery] O2 Saturation 93 95 95 Oxygen O2 Source Nasal cannula I&O (Last 24 Hrs): Intake and Output Totals x24h 05/19/18 05/20/18 05/21/18 23:59 23:59 23:59 Intake Total 2933.000 1435.000 750 Output Total 1302 1200 650 Balance 1631.000 235.000 100 General: Alert, Oriented x3, Other (Sitting up in a chair for a meal.) HEENT: Mucous membr. moist/pink, Other (PAle ucosa.) Neck: Supple, No JVD Neuro: Non Focal, Other (KOI) Cardiovascular: No murmurs Respiratory: No respiratory distress, Other (Diminished breath sounds at both bases.) Abdomen: Soft, No tenderness Extremities: No edema - Results Results: Laboratory Results WBC 4.6 x10^3/uL (4.8-10.8) L 05/20/18 07:30 RBC 4.42 10^6/uL (4.70-6.10) L 05/20/18 07:30 Hgb 11.4 g/dL (14.0-18.0) L 05/20/18 07:30 Hct 34.5 % (42.0-52.0) L 05/20/18 07:30 MCV 77.9 fL (80.0-94.0) L 05/20/18 07:30 MCH 25.7 pg (27.0-31.0) L 05/20/18 07:30 MCHC 33.0 g/dL (32.0-36.0) 05/20/18 07:30 RDW 18.9 % (12.0-15.0) H 05/20/18 07:30 Plt Count 159 10^3/uL (130-450) 05/20/18 07:30 MPV 8.2 fL (7.4-11.4) 05/20/18 07:30 Neut # (Auto) 3.4 10^3/uL (1.5-6.6) 05/20/18 07:30 Lymph # (Auto) 0.7 10^3/uL (1.5-3.5) L 05/20/18 07:30 [place] # (Auto) 0.4 10^3/uL (0.0-1.0) 05/20/18 07:30 Eos # (Auto) 0.0 10^3/uL (0.0-0.7) 05/20/18 07:30 Baso # (Auto) 0.0 10^3/uL (0.0-0.1) 05/20/18 07:30 Absolute Nucleated RBC 0.00 x10^3/uL 05/20/18 07:30 Nucleated RBC % 0.1 /100WBC 05/20/18 07:30 PT 41.0 secs (9.9-12.6) H 05/21/18 06:00 INR 3.8 (0.8-1.2) H 05/21/18 06:00 APTT 46.9 secs (24.9-33.3) H 05/18/18 18:44 Bld Gas Analysis Time 1739 05/18/18 17:35 Sample Site RIGHT BRACHIAL 05/18/18 17:35 ABG pH 7.52 (7.35-7.45) H 05/18/18 17:35 ABG pCO2 25 mmHg (34-45) L* 05/18/18 17:35 ABG pO2 70 mmHg (80-100) L 05/18/18 17:35 ABG HCO3 20.0 mmol/L (22.0-26.0) L 05/18/18 17:35 ABG Total CO2 20.8 MMOL/L (21.0-29.0) L 05/18/18 17:35 ABG O2 Saturation 95 % (94-98) 05/18/18 17:35 ABG Base Excess -1.5 mmol/L (-2.0-3.0) 05/18/18 17:35 Sj Test NOT APPLICABLE 05/18/18 17:35 O2 Delivery Device OXYMASK 05/18/18 17:35 O2 Liters/Min 6.00 LPM 05/18/18 17:35 Sodium 135 mmol/L (135-145) 05/21/18 06:00 Potassium 4.3 mmol/L (3.5-5.0) 05/21/18 06:00 Chloride 101 mmol/L (101-111) 05/21/18 06:00 Carbon Dioxide 23 mmol/L (21-32) 05/21/18 06:00 Anion Gap 11.0 (6-13) 05/21/18 06:00 BUN 48 mg/dL (6-20) H 05/21/18 06:00 Creatinine 1.2 mg/dL (0.6-1.2) 05/21/18 06:00 Estimated GFR (MDRD) 57 (>89) L 05/21/18 06:00 Glucose 219 mg/dL (70-100) H 05/21/18 06:00 Lactic Acid 1.5 mmol/L (0.5-2.2) 05/18/18 21:28 Calcium 8.5 mg/dL (8.5-10.3) 05/21/18 06:00 Phosphorus 4.0 mg/dL (2.5-4.6) 05/16/18 21:35 Magnesium 2.0 mg/dL (1.7-2.8) 05/16/18 21:35 Iron 67 ug/dL (45-182) 05/20/18 07:30 TIBC 176 ug/dL (250-450) L 05/20/18 07:30 % Saturation 38 % (20-50) 05/20/18 07:30 Transferrin 126 mg/dL (180-329) L 05/20/18 07:30 Total Bilirubin 1.0 mg/dL (0.2-1.0) 05/21/18 06:00 AST 197 IU/L (10-42) H 05/21/18 06:00 ALT 92 IU/L (10-60) H 05/21/18 06:00 Alkaline Phosphatase 518 IU/L (42-121) H 05/21/18 06:00 Troponin I < 0.04 ng/mL (<0.49) 05/19/18 09:45 C-Reactive Protein 15.9 mg/dL (0-1.0) H 05/18/18 18:44 B-Natriuretic Peptide 375 pg/mL (5-100) H 05/20/18 07:30 Total Protein 5.9 g/dL (6.7-8.2) L 05/21/18 06:00 Albumin 2.6 g/dL (3.2-5.5) L 05/21/18 06:00 Globulin 3.3 g/dL (2.1-4.2) 05/21/18 06:00 Albumin/Globulin Ratio 0.8 (1.0-2.2) L 05/21/18 06:00 Lipase 23 U/L (22-51) 05/16/18 21:35 TSH 3.49 uIU/mL (0.34-5.60) 05/16/18 21:35 Urine Color YELLOW 05/16/18 21:50 Urine Clarity CLEAR (CLEAR) 05/16/18 21:50 Urine pH 6.5 PH (5.0-7.5) 05/16/18 21:50 Ur Specific [place] 1.015 (1.002-1.030) 05/16/18 21:50 Urine Protein TRACE mg/dL (NEGATIVE) 05/16/18 21:50 Urine Glucose (UA) NEGATIVE mg/dL (NEGATIVE) 05/16/18 21:50 Urine Ketones 15 mg/dL (NEGATIVE) H 05/16/18 21:50 Urine Occult Blood TRACE-INTA (NEGATIVE) 05/16/18 21:50 Urine Nitrite NEGATIVE (NEGATIVE) 05/16/18 21:50 Urine Bilirubin NEGATIVE (NEGATIVE) 05/16/18 21:50 Urine Urobilinogen 2 E.U./dL (NORMAL) H 05/16/18 21:50 Ur Leukocyte Esterase NEGATIVE (NEGATIVE) 05/16/18 21:50 Ur Microscopic Review NOT INDICATED 05/16/18 21:50 Urine Culture Comments NOT INDICATED 05/16/18 21:50 Last Dose Date 05/20/18 05/21/18 06:00 Last Dose Time 0837 05/21/18 06:00 Vancomycin Trough 16.4 ug/mL (10.0-20.0) 05/20/18 07:30 Digoxin 0.9 ng/mL 05/21/18 06:00 - Procedures Procedures: Procedures CONTROL POSTOP PROST HEM (05/31/13) OTH TRANSURETHRAL PROSTATECTOMY (05/31/13) SERUM TRANSFUSION NEC (05/31/13) TU BLADDER CLEARANCE (05/31/13)
[2018-05-21 18:01] LABS: ALBUMIN 2.7 g/dL (3.2-5.5); BILIRUBIN,DIRECT 0.1 mg/dL (0.1-0.5); BILIRUBIN,TOTAL 0.9 mg/dL (0.2-1.0); TOTAL PROTEIN 5.8 g/dL (6.7-8.2)
[2018-05-21] MEDS: LIDOCAINE PATCH 5% TOP SCH (18:06)
[2018-05-21] MEDS: CLINDAMYCIN 150 MG CAPSULE PO SCH ×2 (18:08→21:12)
[2018-05-21] MEDS: MIRTAZAPINE 15 MG TABLET PO SCH (21:12)
[2018-05-21] MEDS ORDERED: TEMAZEPAM 7.5 MG CAPSULE PO PRN (23:49)
[2018-05-22] MEDS: traMADol 50 MG TABLET PO PRN (05:26)
[2018-05-22] MEDS: methylPREDNISolone SUCCINATE 40 MG/ML VIAL IVP SCH ×2 (05:26→13:26)
[2018-05-22] MEDS: LEVOTHYROXINE 75 MCG TABLET PO SCH (06:17)
[2018-05-22] MEDS: CLINDAMYCIN 150 MG CAPSULE PO SCH ×4 (06:17→21:11)
[2018-05-22 06:50] LABS: ALBUMIN 2.6 g/dL (3.2-5.5); ALBUMIN/GLOBULIN RATIO 0.9 (1.0-2.2); CALCIUM 8.7 mg/dL (8.5-10.3); CREATININE 1.1 mg/dL (0.6-1.2); TOTAL PROTEIN 5.4 g/dL (6.7-8.2)
[2018-05-22 06:53] LABS: INR 3.5 (0.8-1.2); PT - PROTHROMBIN TIME 37.5 secs (9.9-12.6)
[2018-05-22] MEDS: DIGOXIN 125 MCG TABLET PO SCH (08:22)
[2018-05-22] MEDS: CALCIUM CITRATE 250 MG TABLET PO SCH ×2 (08:22→21:12)
[2018-05-22] MEDS: FERROUS SULFATE 325 MG TABLET PO SCH (08:22)
[2018-05-22] MEDS: guaiFENesin 600 MG TABLET PO SCH (08:22)
[2018-05-22] MEDS: METOPROLOL SUCCINATE 25 MG TABLET PO SCH ×2 (08:22→21:12)
[2018-05-22] MEDS: DIVALPROEX DR 250 MG TABLET PO SCH ×2 (08:22→21:11)
[2018-05-22] MEDS: CHOLECALCIFEROL 1,000 UNIT TABLET PO SCH (08:22)
[2018-05-22] MEDS: FUROSEMIDE 20 MG TABLET PO SCH (08:22)
[2018-05-22] MEDS: TAMSULOSIN 0.4 MG CAPSULE PO SCH (08:22)
[2018-05-22] MEDS: POLYETHYLENE GLYCOL 3350 17 GM PACKET PO SCH (08:23)
[2018-05-22] MEDS: SODIUM CHLORIDE FLUSH 0.9% 10 ML SYRINGE IVP SCH ×2 (08:23→16:54)
[2018-05-22] MEDS: LIDOCAINE PATCH 5% TOP SCH (08:23)
[2018-05-22] MEDS: SACCHAROMYCES BOULARDII 250 MG CAPSULE PO SCH ×2 (08:23→16:54)
[2018-05-22] MEDS ORDERED: IOPAMIDOL-300 50 ML VIAL ONE (09:30)
[2018-05-22] MEDS ORDERED: IOPAMIDOL-300 100 ML VIAL ONE (09:30)
--- NOTE | 2018-05-22 13:49 | CT Report ---
Reason: CONTINUED RISING LFTS, HX PROSTATE CA. Procedure Date: 05/22/2018 Accession Number: [id number] / [id number] Procedure: CT - Abdomen/Pelvis W/ CPT Code: FULL RESULT: EXAM: CT ABDOMEN AND PELVIS EXAM DATE: 05/22/2018 11:42 AM. CLINICAL HISTORY: CONTINUED RISING LIVER FUNCTION TESTS, HX PROSTATE CA. COMPARISONS: ABDOMEN/PELVIS W/ 11/16/2017 10:58 AM. TECHNIQUE: Routine helical CT imaging was performed through the abdomen and pelvis. IV contrast: ISOVUE 300 100mL. Enteric contrast: Yes. Reconstructions: Coronal and sagittal. In accordance with CT protocol optimization, one or more of the following dose reduction techniques were utilized for this exam: automated exposure control, adjustment of mA and/or KV based on patient size, or use of iterative reconstructive technique. FINDINGS: Lung Bases: There are small bilateral pleural effusions. Bilateral basilar compressive atelectasis is present. Three-vessel coronary artery calcifications are present. There is mild cardiac enlargement. A small Pericardial effusion is present. Liver: There is heterogeneous enhancement of the liver with irregular areas of hypodensity. There is at least one round masslike appearing area of hypodensity in the left lobe of the liver measuring approximately 1.9 x 1.7 cm (series 3 image 30). Gallbladder/Bile Ducts: Unremarkable. Spleen: Normal. Pancreas: Normal. Adrenal Glands: Normal. Kidneys: No hydronephrosis. There is a heterogeneously enhancing slightly exophytic cortical mass the anterior aspect of the left kidney (series 3 image 38), better seen on prior exam. Peritoneal Cavity/Bowel: There is mild diffuse mesenteric and retroperitoneal fat stranding throughout the abdomen and pelvis. No evidence of bowel obstruction. No free fluid, free air or adenopathy. No masses. The appendix is not visualized, but there is no focal inflammatory change or fluid adjacent to the cecum to suggest acute appendicitis. Pelvic Organs: There are multiple brachytherapy seeds in the prostate bed, as seen on the prior exam. The bladder and visualized pelvic organs are within normal limits. Vasculature: There is extensive atherosclerotic calcification of the abdominal aorta and iliac arteries. No aneurysm. Bones: There are extensive diffuse bilateral sclerotic metastases, increased compared to the prior exam. Moderate wedge compression deformity of the T12 vertebral body appears unchanged. No acute fracture visualized. Other: There is mild diffuse peripheral subcutaneous edema. IMPRESSION: 1. Combination of findings suggesting CHF/fluid overload including cardiomegaly, small pericardial effusion, small bilateral pleural effusions, diffuse mesenteric and retroperitoneal edema, and diffuse superficial subcutaneous edema. 2. Heterogeneous enhancement of the liver with ill-defined areas of hypodensity. This may be due to vascular congestion related to fluid overload/congestive heart failure. However, there is at least one focal ovoid masslike area of hypodensity in the left lobe of the liver measuring up to 19 mm. Hepatic metastases cannot be completely excluded. 3. No intrahepatic or extrahepatic biliary dilatation. 4. Left renal mass suspicious for renal cell carcinoma, less conspicuous compared to the prior exam. 5. Diffuse sclerotic osseous metastases, increased compared to the prior exam. RADIA
--- NOTE | 2018-05-22 15:03 | PROVIDER PROGRESS NOTE ---
Assessment/Plan - Problem List (1) Acute on chronic diastolic heart failure Assessment/Plan: Pt was admitted for CHF, This was likely due to : tachycardia from valvular heart disease (moderate-severe ), infection, stress of pneumonia. His fluid balance is minimally neg since admission. No daily weights were ordered. Today his lungs are clear. Continue with present cardiac meds. (2) Elevated LFTs Assessment/Plan: There was further elevation in LFTs today, therefore CT imaging was ordered. This showed bony mets, tissue edema, liver mass and renal mass. The states they new about the renal mass and liver masses are likely to be mets. I suspect his liver had passive congestion from CHF, and that his labs lagged behind his clinical picture. Diet can be resumed and no surgical consult needed. Plan is now for DCh (to SNF) tomorrow. (3) Atrial fibrillation with RVR Assessment/Plan: Heart rate in Afib is controlled on present meds. The Dig dose was decreased back to his pre-hospitalization dose, from 250 mcg to 125 mcg daily, yesterday. INR is 3.5 (off Coumadin for many days and allowing INR to drop). Possibly will resume Coumadin tomorrow. Monitor INR daily. (4) HCAP (healthcare-associated pneumonia) Assessment/Plan: Pt was on iv antibiotics, transitioned to po Clindamycin starting yesterday. Will DCh to SNF tomorrow with 5 more days of po Clindamycin and Florastor. Will also stop iv steroids today and resume his po Prednisone. 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 Will D/C [place] to assess for any obstruction problems. (6) Aortic stenosis Assessment/Plan: Stable. (7) Hyponatremia Assessment/Plan: Resolved. (8) Severe sepsis Assessment/Plan: Resolved. - Current Meds Current Meds: Current Medications Generic Name Dose Route Start Last Admin Trade Name Freq PRN Reason Stop Dose Admin Acetaminophen 650 mg 05/17/18 01:18 05/18/18 16:20 Tylenol PO 650 mg Q4HR PRN Administration Pain 1 to 4 Calcium Citrate 250 mg 05/18/18 21:00 05/22/18 08:22 PO 250 mg BID SIXTO Administration Cholecalciferol 2,000 unit 05/18/18 12:00 05/22/18 08:22 Vitamin D3 PO 2,000 unit DAILY SIXTO Administration Clindamycin HCl 300 mg 05/21/18 17:00 05/22/18 11:48 Cleocin PO 300 mg ACHS SIXTO Administration Digoxin 125 mcg 05/22/18 09:00 05/22/18 08:22 Lanoxin PO 125 mcg DAILY SIXTO Administration Divalproex Sodium 500 mg 05/17/18 09:00 05/22/18 08:[address] PO 500 mg BID SIXTO Administration Ferrous Sulfate 325 mg 05/18/18 12:00 05/22/18 08:22 Feosol PO 325 mg DAILYWM SIXTO Administration Furosemide 20 mg 05/20/18 12:00 05/22/18 08:22 Lasix PO 20 mg DAILY SIXTO Administration Guaifenesin 600 mg 05/19/18 19:00 05/22/18 08:22 Mucinex PO 600 mg BID SIXTO Administration Levothyroxine Sodium 150 mcg 05/18/18 07:00 05/22/18 06:17 Synthroid PO 150 mcg [id number] SIXTO Administration Lidocaine 1 patch 05/21/18 17:39 05/22/18 08:23 Lidoderm Patch TOP 1 patch DAILY SIXTO Administration Lidocaine HCl 2.5 ml 05/17/18 16:21 05/17/18 17:48 Xylocaine Uro-Jet 2% UR 2.5 ml Q6H PRN Administration PAIN Methylprednisolone 40 mg 05/18/18 19:00 05/22/18 13:26 Solu-Medrol (40mg Vial) IVP 40 mg TID SIXTO Administration Metoprolol Succinate 25 mg 05/20/18 21:00 05/22/18 08:22 Toprol Xl PO 25 mg BID SIXTO Administration Mirtazapine 7.5 mg 05/17/18 01:30 05/21/18 21:12 Remeron PO 7.5 mg QPM SIXTO Administration Polyethylene Glycol 17 gm 05/17/18 09:00 05/22/18 08:23 Miralax PO Not Given DAILY SIXTO Saccharomyces Boulardii 250 mg 05/19/18 19:00 05/22/18 08:23 Florastor PO 250 mg BIDWM SIXTO Administration Sodium Chloride 10 ml 05/17/18 01:18 05/21/18 21:14 Normal Saline Flush 0.9% IVP 10 ml PRN PRN Administration NEEDED PER PROVIDER ORDERS Sodium Chloride 10 ml 05/17/18 09:00 05/22/18 08:23 Normal Saline Flush 0.9% IVP 10 ml 0100,0900,1700 SIXTO Administration Tamsulosin HCl 0.4 mg 05/17/18 13:00 05/22/18 08:22 Flomax PO 0.4 mg DAILY SIXTO Administration Temazepam 7.5 mg 05/21/18 23:49 05/21/18 23:59 Restoril PO 7.5 mg QPM PRN Administration Insomnia Tramadol HCl 25 mg 05/17/18 01:22 05/22/18 05:26 Ultram PO 25 mg Q6H PRN Administration PAIN - Lab Result Fish Bone Diagrams: 05/20/18 07:30 05/22/18 06:18 - Additional Planning My Orders: My Active Orders 05/21/18 17:00 Clindamycin [Cleocin] 300 mg PO ACHS 05/21/18 17:39 Lidocaine Patch 5% [Lidoderm Patch] 1 patch TOP DAILY 05/22/18 09:00 Oxygen Desat. Study w/Exercise [RC] .ONCE Digoxin [Lanoxin] 125 mcg PO DAILY 05/22/18 Dinner DIET [Low Sodium Diet] [DIET] 05/22/18 Lunch DIET [Cardiac Diet] [DIET] 05/23/18 05:00 CMP [COMPREHENSIVE METABOLIC PANEL] [CHEM] DAILYLAB PT WITH INR [COAG] DAILYLAB Subjective - Subjective Patient Reports: Resting Comfortably, No Complaints Objective Vital Signs: Vital Signs - 24 hr 05/21/18 05/21/18 05/22/18 15:32 20:05 00:39 Temperature 36.3 C L 36.5 C 36.8 C Heart Rate [ 43 L 62 71 Monitoring electrodes] Respiratory 20 17 18 Rate Blood Pressure 149/50 H 164/63 H 165/55 H [Right Brachial artery] O2 Saturation 97 96 95 05/22/18 05/22/18 05/22/18 05:23 07:22 12:52 Temperature 36.3 C L 36.4 C L 36.3 C L Heart Rate [ 79 60 60 Monitoring electrodes] Respiratory 20 22 24 Rate Blood Pressure 156/72 H 165/56 H 153/49 H [Right Brachial artery] O2 Saturation 97 95 95 Oxygen O2 Source Nasal cannula I&O (Last 24 Hrs): Intake and Output Totals x24h 05/20/18 05/21/18 05/22/18 23:59 23:59 23:59 Intake Total 5127.881 5963 200 Output Total 1200 1615 1200 Balance 235.000 -225 -1000 General: Alert, Oriented x3, Other (Pale) HEENT: Mucous membr. moist/pink Neck: Supple, No JVD Neuro: Non Focal Cardiovascular: No murmurs Respiratory: No respiratory distress, Breath sounds nml Abdomen: Soft Extremities: No edema - Results Results: Laboratory Results WBC 4.6 x10^3/uL (4.8-10.8) L 05/20/18 07:30 RBC 4.42 10^6/uL (4.70-6.10) L 05/20/18 07:30 Hgb 11.4 g/dL (14.0-18.0) L 05/20/18 07:30 Hct 34.5 % (42.0-52.0) L 05/20/18 07:30 MCV 77.9 fL (80.0-94.0) L 05/20/18 07:30 MCH 25.7 pg (27.0-31.0) L 05/20/18 07:30 MCHC 33.0 g/dL (32.0-36.0) 05/20/18 07:30 RDW 18.9 % (12.0-15.0) H 05/20/18 07:30 Plt Count 159 10^3/uL (130-450) 05/20/18 07:30 MPV 8.2 fL (7.4-11.4) 05/20/18 07:30 Neut # (Auto) 3.4 10^3/uL (1.5-6.6) 05/20/18 07:30 Lymph # (Auto) 0.7 10^3/uL (1.5-3.5) L 05/20/18 07:30 [place] # (Auto) 0.4 10^3/uL (0.0-1.0) 05/20/18 07:30 Eos # (Auto) 0.0 10^3/uL (0.0-0.7) 05/20/18 07:30 Baso # (Auto) 0.0 10^3/uL (0.0-0.1) 05/20/18 07:30 Absolute Nucleated RBC 0.00 x10^3/uL 05/20/18 07:30 Nucleated RBC % 0.1 /100WBC 05/20/18 07:30 PT 37.5 secs (9.9-12.6) H 05/22/18 06:18 INR 3.5 (0.8-1.2) H 05/22/18 06:18 APTT 46.9 secs (24.9-33.3) H 05/18/18 18:44 Bld Gas Analysis Time 1739 05/18/18 17:35 Sample Site RIGHT BRACHIAL 05/18/18 17:35 ABG pH 7.52 (7.35-7.45) H 05/18/18 17:35 ABG pCO2 25 mmHg (34-45) L* 05/18/18 17:35 ABG pO2 70 mmHg (80-100) L 05/18/18 17:35 ABG HCO3 20.0 mmol/L (22.0-26.0) L 05/18/18 17:35 ABG Total CO2 20.8 MMOL/L (21.0-29.0) L 05/18/18 17:35 ABG O2 Saturation 95 % (94-98) 05/18/18 17:35 ABG Base Excess -1.5 mmol/L (-2.0-3.0) 05/18/18 17:35 Sj Test NOT APPLICABLE 05/18/18 17:35 O2 Delivery Device OXYMASK 05/18/18 17:35 O2 Liters/Min 6.00 LPM 05/18/18 17:35 Sodium 135 mmol/L (135-145) 05/22/18 06:18 Potassium 4.5 mmol/L (3.5-5.0) 05/22/18 06:18 Chloride 102 mmol/L (101-111) 05/22/18 06:18 Carbon Dioxide 25 mmol/L (21-32) 05/22/18 06:18 Anion Gap 8.0 (6-13) 05/22/18 06:18 BUN 50 mg/dL (6-20) H 05/22/18 06:18 Creatinine 1.1 mg/dL (0.6-1.2) 05/22/18 06:18 Estimated GFR (MDRD) 63 (>89) L 05/22/18 06:18 Glucose 260 mg/dL (70-100) H 05/22/18 06:18 Lactic Acid 1.5 mmol/L (0.5-2.2) 05/18/18 21:28 Calcium 8.7 mg/dL (8.5-10.3) 05/22/18 06:18 Phosphorus 4.0 mg/dL (2.5-4.6) 05/16/18 21:35 Magnesium 2.0 mg/dL (1.7-2.8) 05/16/18 21:35 Iron 67 ug/dL (45-182) 05/20/18 07:30 TIBC 176 ug/dL (250-450) L 05/20/18 07:30 % Saturation 38 % (20-50) 05/20/18 07:30 Transferrin 126 mg/dL (180-329) L 05/20/18 07:30 Total Bilirubin 1.0 mg/dL (0.2-1.0) 05/22/18 06:18 Direct Bilirubin 0.1 mg/dL (0.1-0.5) 05/21/18 17:32 AST 229 IU/L (10-42) H 05/22/18 06:18 ALT 99 IU/L (10-60) H 05/22/18 06:18 Alkaline Phosphatase 884 IU/L (42-121) H 05/22/18 06:18 Troponin I < 0.04 ng/mL (<0.49) 05/19/18 09:45 C-Reactive Protein 15.9 mg/dL (0-1.0) H 05/18/18 18:44 B-Natriuretic Peptide 375 pg/mL (5-100) H 05/20/18 07:30 Total Protein 5.4 g/dL (6.7-8.2) L 05/22/18 06:18 Albumin 2.6 g/dL (3.2-5.5) L 05/22/18 06:18 Globulin 2.8 g/dL (2.1-4.2) 05/22/18 06:18 Albumin/Globulin Ratio 0.9 (1.0-2.2) L 05/22/18 06:18 Lipase 23 U/L (22-51) 05/16/18 21:35 TSH 3.49 uIU/mL (0.34-5.60) 05/16/18 21:35 Urine Color YELLOW 05/16/18 21:50 Urine Clarity CLEAR (CLEAR) 05/16/18 21:50 Urine pH 6.5 PH (5.0-7.5) 05/16/18 21:50 Ur Specific [place] 1.015 (1.002-1.030) 05/16/18 21:50 Urine Protein TRACE mg/dL (NEGATIVE) 05/16/18 21:50 Urine Glucose (UA) NEGATIVE mg/dL (NEGATIVE) 05/16/18 21:50 Urine Ketones 15 mg/dL (NEGATIVE) H 05/16/18 21:50 Urine Occult Blood TRACE-INTA (NEGATIVE) 05/16/18 21:50 Urine Nitrite NEGATIVE (NEGATIVE) 05/16/18 21:50 Urine Bilirubin NEGATIVE (NEGATIVE) 05/16/18 21:50 Urine Urobilinogen 2 E.U./dL (NORMAL) H 05/16/18 21:50 Ur Leukocyte Esterase NEGATIVE (NEGATIVE) 05/16/18 21:50 Ur Microscopic Review NOT INDICATED 05/16/18 21:50 Urine Culture Comments NOT INDICATED 05/16/18 21:50 Last Dose Date 05/20/18 05/21/18 06:00 Last Dose Time 0837 05/21/18 06:00 Vancomycin Trough 16.4 ug/mL (10.0-20.0) 05/20/18 07:30 Digoxin 0.9 ng/mL 05/21/18 06:00 - Procedures Procedures: Procedures CONTROL POSTOP PROST HEM (05/31/13) OTH TRANSURETHRAL PROSTATECTOMY (05/31/13) SERUM TRANSFUSION NEC (05/31/13) TU BLADDER CLEARANCE (05/31/13)
[2018-05-22] MEDS ORDERED: IOPAMIDOL-300 100 ML VIAL IVP ONE (16:41)
[2018-05-22] MEDS ORDERED: IOPAMIDOL-300 50 ML VIAL PO ONE (16:41)
[2018-05-22] MEDS: MIRTAZAPINE 15 MG TABLET PO SCH (21:12)
[2018-05-23] MEDS: SODIUM CHLORIDE FLUSH 0.9% 10 ML SYRINGE IVP SCH ×3 (00:27→16:09)
[2018-05-23 06:19] LABS: ALBUMIN 2.6 g/dL (3.2-5.5); BILIRUBIN,TOTAL 0.9 mg/dL (0.2-1.0); CREATININE 1.1 mg/dL (0.6-1.2); TOTAL PROTEIN 5.3 g/dL (6.7-8.2)
[2018-05-23 06:20] LABS: INR 3.8 (0.8-1.2); PT - PROTHROMBIN TIME 40.4 secs (9.9-12.6)
[2018-05-23] MEDS: CLINDAMYCIN 150 MG CAPSULE PO SCH ×4 (06:40→20:42)
[2018-05-23] MEDS: LEVOTHYROXINE 75 MCG TABLET PO SCH (06:40)
[2018-05-23] MEDS: predniSONE 20 MG TABLET PO SCH (08:33)
[2018-05-23] MEDS: SACCHAROMYCES BOULARDII 250 MG CAPSULE PO SCH ×2 (08:33→16:09)
[2018-05-23] MEDS: FERROUS SULFATE 325 MG TABLET PO SCH (08:34)
[2018-05-23] MEDS ORDERED: SODIUM CHLORIDE 0.9% 500 ML IV ONE (08:57)
[2018-05-23] MEDS: DIVALPROEX DR 250 MG TABLET PO SCH ×2 (09:28→20:42)
[2018-05-23] MEDS: FUROSEMIDE 20 MG TABLET PO SCH (09:28)
[2018-05-23] MEDS: CALCIUM CITRATE 250 MG TABLET PO SCH ×2 (09:29→20:42)
[2018-05-23] MEDS: DIGOXIN 125 MCG TABLET PO SCH (09:29)
[2018-05-23] MEDS: LIDOCAINE PATCH 5% TOP SCH (09:29)
[2018-05-23] MEDS: CHOLECALCIFEROL 1,000 UNIT TABLET PO SCH (09:29)
[2018-05-23] MEDS: POLYETHYLENE GLYCOL 3350 17 GM PACKET PO SCH (09:29)
[2018-05-23] MEDS: TAMSULOSIN 0.4 MG CAPSULE PO SCH (09:29)
--- NOTE | 2018-05-23 09:31 | Discharge Plan ---
"Discharge Plan for SNF / [facility] - DC Plan and Transition Orders Disposition: Home, Self Care Condition: Poor SNF Transition Orders: Admit to: [facility] under the care of Xu Mclean MD Discharge Diagnosis: 1. acute of chronic congestive heart failure with preserved EF 2. health care associated pneumonia and sepsis. abx completed as of today. 3. atrial fibrillation with RVR. on anticoagulation, consider stopping. 4. aortic valve stenosis and regurgitation 5. 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 6. 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 delirium without behavioral issues 8. urinary incontinence requiring diaper 9. dysphagia with liquids, MRI head negative 10. hypoxia 11. 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 urinary retention and incontinence, may need straight cath prn. put on abx empirically for 5 days 13. generalized weakness Medicare Certification: I certify that [facility] retirement care is medically necessary on a continuing basis for any of the conditions for which she/he is receiving care during hospitalization. Notify PCP of admission and forward orders to primary provider for signature. Weight on admission and weekly. Call PCP immediately if weight increases by 5 pounds or if patient develops dyspnea, chest pain/tightness or edema. House Bowel Program: yes If no BM after 2 days, nurse may give M.O.M. 30ml PO PRN and /or ducolax Supp 1 [place] and /or MAURA 250mg P.O., and/or senna 1-2 tabs PO. On day 3 nurse may give repeat above order until residents constipation is resolved. Immunizations: Annual Influenza Vaccine: yes. (between May 20 and December 17.) Unless allergy or already given Two-Step PPD: yes per [facility] [id number] or appropriate documentation of approved exceptions Treatments & Other Orders: Oxygen Orders: O2 by NC prn to keep O2 sats 90% Lab Tests or X-Rays Orders: CBC and BMP in 1 week Orthopedic Orders: Remove Sutures/Andreia and Comment. Medications: PLEASE REFER TO THE DISCHARGE MEDICATION LIST. Insulin Orders? No Diagnosis: Diabetes Initiate hypo and hyperglycemia protocols for BG <70 and BG >375. May check BG prn for signs/symptoms of dysglycemia. Frequency of BG checks: [AC/Meal/HS] Basal Insulin: Lantus 100 units / ml inject subq as follows: [] Other: [] Correction Insulin: - Select the type of insulin below [Choose: Novolog/Humalog]100 units /ml insulin inject subq per orders indicate below [] LOW DOSE [] MODERATE DOSE [] MODERATE/HIGH DOSE [] HIGH DOSE GB UNITS GB UNITS GB UNITS GB UNITS 61-140 0 UNITS 61-140 0 UNITS 61-140 0 UNITS 61-140 0 UNITS 141-175 1 UNITS 141-175 1 UNITS 141-175 2 UNITS 141-175 3 UNITS 176-225 2 UNITS 176-225 3 UNITS 176-225 4 UNITS 176-225 5 UNITS 226-275 3 UNITS 226-275 5 UNITS 226-275 6 UNITS 226-275 7 UNITS 276-325 4 UNITS 276-325 7 UNITS 276-325 8 UNITS 276-325 9 UNITS 326-375 5 UNITS 326-375 9 UNITS 326-375 10 UNITS 326-375 11 UNITS >375 CONTACT MD >375 CONTACT MD >375 CONTACT MD >375 CONTACT MD Custom Dosing: [Choose: None/Novolog/Humalog] 100 units/ml Insulin inject subq as follows: GB Units 61-140 [] Units 141-175 [] Units 176-225 [] Units 226-275 [] Units 276-325 []Units 326-375 [] Units >375 Contact MD Allergies and Adverse Reactions: Allergies Allergy/AdvReac Type Severity Reaction Status Date / Time hydrocodone Allergy Nausea Verified 05/21/18 11:36 oxycodone Allergy Nausea Verified 05/21/18 11:36 - Medications New Prescriptions: Ciprofloxacin HCl [Cipro] 250 mg PO BID #10 tablet traMADol [Ultram] 25 mg PO Q6H PRN #30 tablet PRN Reason: Pain - Diet Type: No added salt Texture: Regular Liquids: [place] thick May have monthly special meal: Yes - Therapies | Activity Therapy: Evaluation | Treat if indicated: Speech, PT, OT Rehabilitation Potential: Maximize functional status, Return to independent living Activity: Activity as Tolerated Weight Bearing: Full Weight Assistance Devices: Walker"
[2018-05-23] MEDS: METOPROLOL SUCCINATE 25 MG TABLET PO SCH ×2 (10:47→20:42)
--- NOTE | 2018-05-23 11:14 | PROVIDER PROGRESS NOTE ---
Subjective - Prog Note Date Prog Note Date: 05/23/18 Prog Note Time: 11:11 - Subjective Pt reports feeling: Worse Subjective: He had a good day on Tuesday which was 2 days ago. His family was around, was interactive. Tired but interactive. He also had physical therapy twice a day as well as with his son Loyd. He was exhausted. Yesterday he seemed a little bit more confused than usual. Today he is definitely more confused than usual. We had planned on discharging him to the halfway facility today. But this morning his confusion, choking on thin liquids, is a change in status. We will be keeping him until we figure out what this new problem is. I am the hospitalist that admitted him. But between admission and now I have not been taking care of him. He was admitted with A. fib with RVR, worsening congestive heart failure from the A. fib as well as worsening aortic stenosis and aortic regurgitation. He then developed healthcare associated pneumonia and sepsis with a transfer to the ICU. He has an identifiable renal neoplasm that was present before admission. That seems to be stable in size. He had worsening liver function studies. A CT of the abdomen and pelvis was done. He had heterogeneous enhancement of the liver with irregular areas of hypodensity. There was at least one round masslike area of hypodensity in the left lobe of the liver measuring 1.9 x 1.7 cm. Hepatic metastases cannot be completely excluded. He had a left renal mass suspicious for renal carcinoma that was about the same if not less conspicuous than the prior exam. 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 He also has combination of findings suggestive of CHF/fluid overload including cardiomegaly, small pericardial effusion, small bilateral pleural effusions, diffuse mesenteric and retroperitoneal edema, and diffuse superficial subcutaneous edema. Current Medications - Current Medications Current Medications: Active Medications Acetaminophen (Tylenol) 650 mg PO Q4HR PRN PRN Reason: Pain 1 to 4 Last Admin: 05/18/18 16:20 Dose: 650 mg Calcium Citrate () 250 mg PO BID [facility] Last Admin: 05/23/18 09:29 Dose: 250 mg Cholecalciferol (Vitamin D3) 2,000 unit PO DAILY [facility] Last Admin: 05/23/18 09:29 Dose: 2,000 unit Clindamycin HCl (Cleocin) 300 mg PO ACHS [facility] Last Admin: 05/23/18 10:54 Dose: 300 mg Digoxin (Lanoxin) 125 mcg PO DAILY [facility] Last Admin: 05/23/18 09:29 Dose: 125 mcg Divalproex Sodium (Depakote Dr) 500 mg PO BID [facility] Last Admin: 05/23/18 09:28 Dose: 500 mg Ferrous Sulfate (Feosol) 325 mg PO DAILYWM [facility] Last Admin: 05/23/18 08:34 Dose: 325 mg Furosemide (Lasix) 20 mg PO DAILY [facility] Last Admin: 05/23/18 09:28 Dose: 20 mg Levothyroxine Sodium (Synthroid) 150 mcg PO MoTuWeThFr@0700 [facility] Last Admin: 05/23/18 06:40 Dose: 150 mcg Lidocaine (Lidoderm Patch) 1 patch TOP DAILY [facility] Last Admin: 05/23/18 09:29 Dose: 1 patch Metoprolol Succinate (Toprol Xl) 25 mg PO BID [facility] Last Admin: 05/23/18 10:47 Dose: 25 mg Mirtazapine (Remeron) 7.5 mg PO QPM [facility] Last Admin: 05/22/18 21:12 Dose: 7.5 mg Ondansetron HCl (Zofran Inj) 4 mg IVP Q6HR PRN PRN Reason: Nausea / Vomiting Polyethylene Glycol (Miralax) 17 gm PO DAILY [facility] Last Admin: 05/23/18 09:29 Dose: Not Given Prednisone (Deltasone) 10 mg PO DAILYWM [facility] Last Admin: 05/23/18 08:33 Dose: 10 mg Saccharomyces Boulardii (Florastor) 250 mg PO BIDWM [facility] Last Admin: 05/23/18 08:33 Dose: 250 mg Sodium Chloride (Normal Saline Flush 0.9%) 10 ml IVP PRN PRN PRN Reason: NEEDED PER PROVIDER ORDERS Last Admin: 05/21/18 21:14 Dose: 10 ml Sodium Chloride (Normal Saline Flush 0.9%) 10 ml IVP 0100,0900,1700 [facility] Last Admin: 05/23/18 09:30 Dose: Not Given Tamsulosin HCl (Flomax) 0.4 mg PO DAILY [facility] Last Admin: 05/23/18 09:29 Dose: 0.4 mg Temazepam (Restoril) 7.5 mg PO QPM PRN PRN Reason: Insomnia Last Admin: 05/21/18 23:59 Dose: 7.5 mg Throat Lozenges (Cepacol) 1 lozenge MM Q2HR PRN PRN Reason: Throat pain Tramadol HCl (Ultram) 25 mg PO Q6H PRN PRN Reason: PAIN Last Admin: 05/22/18 05:26 Dose: 25 mg Cholecalciferol [Vitamin D3] 600 unit PO DAILY 03/12/[address] [Depakote Dr] 500 mg PO BID 03/12/13 Folic Acid 1 mg PO DAILY 03/12/13 Levothyroxine [Synthroid] 150 mcg PO MOTUWETHFR@0700 03/12/13 Warfarin [Coumadin] 5 mg PO SUMOTUTHFRSA@0908/01/13 Metoprolol Tartrate [Lopressor] 12.5 mg PO BID 03/13/16 Prednisone 5 mg PO BID 12/07/17 traMADol [Ultram] 25 mg PO Q6H PRN 04/19/18 Mirtazapine 7.5 mg PO DAILY PM 05/03/18 Calcium Citrate 500 mg PO DAILY 05/17/18 Digoxin 125 mcg PO DAILY 05/17/18 Ibuprofen 200 mg PO Q4H PRN 05/17/18 Tamsulosin [Flomax] 0.4 mg PO DAILY 05/17/18 Objective - Vital Signs/Intake & Output Reviewed Vital Signs: Yes Vital Signs: Vital Signs x48h Temp Pulse Resp BP Pulse Ox 05/23/18 08:57 85 111/47 L 05/23/18 08:38 103 H 71/35 L 05/23/18 08:00 36.4 C L 18 84/44 L 93 05/23/18 05:00 36.4 C L 64 18 157/55 H 92 Intake & Output: Intake & Output 05/20/18 05/21/18 05/22/18 05/23/18 23:59 23:59 23:59 23:59 Intake Total 3620.709 0259 525 740 Output Total 1200 1615 2300 Balance 235.000 -225 -1775 740 - Objective General Appearance: positive: No acute distress, Alert Eyes Bilateral: positive: PERRL ENT: positive: Pharynx nml, No signs of dehydration Neck: positive: Other (He has jugular venous distention detention up his neck veins at approximately 50 sitting). negative: Stiff neck, Carotid bruit Respiratory: positive: No respiratory distress, Rales (At bases. Dull bases with minimal breath sounds.). negative: Wheezes, Rhonchi Cardiovascular: positive: Irregularly irregular, Systolic murmur, Diastolic murmur. negative: Gallop/S4, Friction rub Abdomen: positive: Non-tender, Nml bowel sounds, No distention, Other (No fluid wave, concave abdominal wall). negative: Guarding, Rebound Skin: positive: Warm, Dry Extremities: positive: Pedal edema Neurologic/Psychiatric: positive: Oriented x3, Motor nml, Weakness (Generalized) , Facial droop (I did not note that on his admission exam when I admitted him. Today he has a clear right loss of nasolabial fold. Right eyelid does not close as much as his left does. He is now having problems with choking. But he is much more alert and oriented than he was when I admitted him. However feels he is much more confused today and he acknowledges that. I am not seeing a motor deficit on the right side). negative: CN's nml (2-12) - Lab Results Fish Bones: 05/20/18 07:30 05/23/18 05:57 Other Labs: Lab Results x24hrs 05/23/18 05/23/18 Range/Units 05:57 05:57 PT 40.4 H (9.9-12.6) secs INR 3.8 H (0.8-1.2) Sodium 133 L (135-145) mmol/L Potassium 4.3 (3.5-5.0) mmol/L Chloride 100 L (101-111) mmol/L Carbon Dioxide 24 (21-32) mmol/L Anion Gap 9.0 (6-13) BUN 47 H (6-20) mg/dL Creatinine 1.1 (0.6-1.2) mg/dL Estimated GFR (MDRD) 63 L (>89) Glucose 188 H (70-100) mg/dL Calcium 8.0 L (8.5-10.3) mg/dL Total Bilirubin 0.9 (0.2-1.0) mg/dL AST 163 H (10-42) IU/L ALT 97 H (10-60) IU/L Alkaline Phosphatase 1008 H (42-121) IU/L Total Protein 5.3 L (6.7-8.2) g/dL Albumin 2.6 L (3.2-5.5) g/dL Globulin 2.7 (2.1-4.2) g/dL Albumin/Globulin Ratio 1.0 (1.0-2.2) ABX Reporting Has patient been on IV antibiotics over the past 48 hours?: Yes Assessment/Plan - Problem List (1) Facial droop Impression: new and associated with dysphagia of thin liquids this am. No motor deficit on exam. Plan: MRI of head w and wo to assess for mets, cva, or embolic stroke from afib. PT is already seeing him. Once we can assess if this an issue, then I can predict when dc will be. But it won't be today. (2) HCAP (healthcare-associated pneumonia) Impression: He had been on empiric abx from admission with cefipime and vancomycin from 05/18 -05/21. changed to cleocin po. He developed sepsis from new pneumonia after admission. Went to ICU. Out of ICU. blood cultures negative from admission. sputum with gram positive cocci. CXR from 05/21 with increased density behind the left heart. (3) Atrial fibrillation with RVR Impression: chronic, present on admission. rate controlled since 05/20 and he's on dig, diltiazem, metoprolol his dilated left atria leave us to believe the afib will be chronic (4) Heart failure with preserved left ventricular function (HFpEF) Impression: his ECHO during this admission (compared to 01/2013) has valvular heart disease that is worse. new moderate aortic stenosis, worsening aortic regurgitation, EF of 50-55%, worsening biatrial enlargment, . During this stay balance of fluids has been difficult. we have intravascular depletion very easily as we do today with orthostatic hypotension (BP 70 sitting by 111 laying down) . He had prerenal azotemia on admission. will give a fluid bolus of 500 cc and continue to monitor his I/O and daily weights. (5) Metastatic malignant neoplasm to prostate Impression: while it is contributing to his overall lack of progress, it is not the main cause. His heart and renal neoplasm, and liver mets have more to do with that. The liver mets are ot felt to be from prostate cancer?
--- NOTE | 2018-05-23 12:07 | CONSULTATION NOTE ---
Palliative Care Follow Up - Referral Referring Provider: Keysha ESCOBAR Time of Visit: 0900-15;10:15-11:15; [id number] Referral setting: Hospitalized patient Referral Reason: Met Prostate Cancer/Pneumonia/Goals of care - Information Sources Records reviewed: RN notes reviewed, Previous records reviewed History/Review of Systems obtained from: Patient, Family () Exam limitations: Clinical condition (patient admits to increase difficulty with tracking/memory today) - History of Present Illness Update Brief HPI Update: This is an 88-year-old gentleman who is quite frail, came in due to collapse and fatigue. He was found to have pneumonia in on second day, has continued to have trouble with respiratory effort, desats with activity, significant fatigue , and presents today with increased memory problems. He does feel like he is somewhat confused, is having some difficulty with swallowing. He is due to transition to the [facility], his goals are to regain some functional status and to return home. He continues to have poor appetite, though did report he ate some breakfast this morning, is feeling quite weak, and continues to complain of difficulty sleeping mostly related to back discomfort and restlessness at bedtime. Patient also with hypotension first thing in the morning, he did get a liter of fluid with some improvement. Patient was found to have some right sided droop, change in facial symmetry, choking on clear liquids, and MRI was ordered to rule out metastatic disease or acute stroke. Which it did rule out anything acute or of concern. Social History - Living Situation Living arrangement: At home Living Situation: With spouse/s.o. Support System: supportive family; Loyd son, PT does provide medical support/interputs for them; daughter came to visit; at home though / patient live alone. 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 care insurance Medications/Allergies - Medications Active Medication List: Active Medications Acetaminophen (Tylenol) 650 mg PO Q4HR PRN PRN Reason: Pain 1 to 4 Last Admin: 05/18/18 16:20 Dose: 650 mg Calcium Citrate () 250 mg PO BID COUNTS INCLUDE 234 BEDS AT THE [facility] Last Admin: 05/23/18 09:29 Dose: 250 mg Cholecalciferol (Vitamin D3) 2,000 unit PO DAILY [facility] Last Admin: 05/23/18 09:29 Dose: 2,000 unit Clindamycin HCl (Cleocin) 300 mg PO ACHS COUNTS INCLUDE 234 BEDS AT THE [facility] Last Admin: 05/23/18 10:54 Dose: 300 mg Digoxin (Lanoxin) 125 mcg PO DAILY COUNTS INCLUDE 234 BEDS AT THE [facility] Last Admin: 05/23/18 09:29 Dose: 125 mcg Divalproex Sodium (Depakote Dr) 500 mg PO BID COUNTS INCLUDE 234 BEDS AT THE [facility] Last Admin: 05/23/18 09:28 Dose: 500 mg Ferrous Sulfate (Feosol) 325 mg PO DAILYWM COUNTS INCLUDE 234 BEDS AT THE [facility] Last Admin: 05/23/18 08:34 Dose: 325 mg Furosemide (Lasix) 20 mg PO DAILY COUNTS INCLUDE 234 BEDS AT THE [facility] Last Admin: 05/23/18 09:28 Dose: 20 mg Levothyroxine Sodium (Synthroid) 150 mcg PO MoTuWeThFr@0700 COUNTS INCLUDE 234 BEDS AT THE [facility] Last Admin: 05/23/18 06:40 Dose: 150 mcg Lidocaine (Lidoderm Patch) 1 patch TOP DAILY COUNTS INCLUDE 234 BEDS AT THE [facility] Last Admin: 05/23/18 09:29 Dose: 1 patch Metoprolol Succinate (Toprol Xl) 25 mg PO BID COUNTS INCLUDE 234 BEDS AT THE [facility] Last Admin: 05/23/18 10:47 Dose: 25 mg Mirtazapine (Remeron) 7.5 mg PO QPM COUNTS INCLUDE 234 BEDS AT THE [facility] Last Admin: 05/22/18 21:12 Dose: 7.5 mg Ondansetron HCl (Zofran Inj) 4 mg IVP Q6HR PRN PRN Reason: Nausea / Vomiting Polyethylene Glycol (Miralax) 17 gm PO DAILY COUNTS INCLUDE 234 BEDS AT THE [facility] Last Admin: 05/23/18 09:29 Dose: Not Given Prednisone (Deltasone) 10 mg PO DAILYWM COUNTS INCLUDE 234 BEDS AT THE [facility] Last Admin: 05/23/18 08:33 Dose: 10 mg Saccharomyces Boulardii (Florastor) 250 mg PO BIDWM COUNTS INCLUDE 234 BEDS AT THE [facility] Last Admin: 05/23/18 08:33 Dose: 250 mg Sodium Chloride (Normal Saline Flush 0.9%) 10 ml IVP PRN PRN PRN Reason: NEEDED PER PROVIDER ORDERS Last Admin: 05/21/18 21:14 Dose: 10 ml Sodium Chloride (Normal Saline Flush 0.9%) 10 ml IVP 0100,0900,1700 COUNTS INCLUDE 234 BEDS AT THE [facility] Last Admin: 05/23/18 09:30 Dose: Not Given Tamsulosin HCl (Flomax) 0.4 mg PO DAILY COUNTS INCLUDE 234 BEDS AT THE [facility] Last Admin: 05/23/18 09:29 Dose: 0.4 mg Temazepam (Restoril) 7.5 mg PO QPM PRN PRN Reason: Insomnia Last Admin: 05/21/18 23:59 Dose: 7.5 mg Throat Lozenges (Cepacol) 1 lozenge MM Q2HR PRN PRN Reason: Throat pain Tramadol HCl (Ultram) 25 mg PO Q6H PRN PRN Reason: PAIN Last Admin: 05/22/18 05:26 Dose: 25 mg Cholecalciferol [Vitamin D3] 600 unit PO DAILY 03/12/[address] [Depakote Dr] 500 mg PO BID 03/12/13 Folic Acid 1 mg PO DAILY 03/12/13 Levothyroxine [Synthroid] 150 mcg PO MOTUWETHFR@0703/12/13 Warfarin [Coumadin] 5 mg PO SUMOTUTHFRSA@89908/01/13 Metoprolol Tartrate [Lopressor] 12.5 mg PO BID 03/13/16 Prednisone 5 mg PO BID 12/07/17 traMADol [Ultram] 25 mg PO Q6H PRN 04/19/18 Mirtazapine 7.5 mg PO DAILY PM 05/03/18 Calcium Citrate 500 mg PO DAILY 05/17/18 Digoxin 125 mcg PO DAILY 05/17/18 Ibuprofen 200 mg PO Q4H PRN 05/17/18 Tamsulosin [Flomax] 0.4 mg PO DAILY 05/17/18 - Allergies Allergies/Adverse Reactions: Allergies Allergy/AdvReac Type Severity Reaction Status Date / Time hydrocodone Allergy Nausea Verified 05/21/18 11:36 oxycodone Allergy Nausea Verified 05/21/18 11:36 Review of Systems - Constitutional Constitutional: reports: Fatigue, Poor appetite, Weight loss - Ears, Nose & Throat Ears, Nose & Throat: reports: Hearing loss, Dry mouth - Cardiovascular Cardiovascular: reports: Decr. exercise tolerance - Respiratory Respiratory: reports: Cough (improved but still present), SOB with exertion, Other (oxygen sats improved) - Gastrointestinal Gastrointestinal: reports: Poor appetite, Early satiety. denies: Nausea - Genitourinary Genitourinary: reports: Other (history of retention; alvarado recently out; voiding only small amounts; may need bladder scan) - Musculoskeletal Musculoskeletal: reports: Back pain, Stiffness, Muscle weakness, Assistive devices - Integumentary Integumentary: reports: Dryness - Neurological Neurological: reports: General weakness, Memory problems - Psychiatric Psychiatric: reports: Anxiety (wanting to get home) - Endocrine Endocrine: reports: Intolerance to cold - Hematologic/Lymphatic Hematologic/Lymphatic: reports: Anemia, Bruising - All Other Systems All Other Systems: reports: Reviewed and negative Physical Exam - Vital Signs Vital Signs: Vital Signs x48h Temp Pulse Resp BP Pulse Ox 05/23/18 08:57 85 111/47 L 05/23/18 08:38 103 H 71/35 L 05/23/18 08:00 36.4 C L 18 84/44 L 93 05/23/18 05:00 36.4 C L 64 18 157/55 H 92 - Physical Exam General Appearance: positive: No acute distress, Lethargic (falls to sleep easily;) Eyes Bilateral: positive: Normal inspection ENT: positive: Dry mucous membranes, Other (noted difficulty with water and choking) Neck: positive: No JVD, Trachea midline Cardiovascular: positive: Irregular, Tachycardia Respiratory: positive: Diminished in bases, Other (noted respiratory effort with any movement; talking) Abdomen: positive: Nml bowel sounds, Tenderness Skin: positive: Dryness, Bruising Extremities: positive: No pedal edema Neurologic/Psychiatric: positive: Mood/affect nml, Disoriented to time, Weakness , Facial droop (slight on right; noted with hospitalist exam) Palliative Care - POLST Patient has POLST: No POLST Status: DNR Pain: Pain unchanged, Location (mid thoracic back area; reports currently controlled but uncomfortable at night; has used tramadol intermittently) Tiredness/Fatigue: Severe (7-10) Drowsiness/Sedation: Moderate (4-6) Nausea: None Depression: Mild (1-3) Anxiety: Mild (1-3) Dyspnea: Moderate (4-6) Anorexia: Moderate (4-6) Sleep: Variable sleep pattern (reported nightmares last night) Constipation: No Performance Status: Patient continues to remain quite weak, though motivated to improve. He does have some breathlessness and desats with activity, has been participating with physical therapy. Is aware in the transition the goal would be to improve functional status to help with facilitation of meeting care needs at home. - Palliative Care Discussion: Patient continues to present as quite frail, with multiple comorbidities playing into his frailty and failure to thrive. Patient does seem to have some understanding of the seriousness of his illness. As far as qualilty of life, he reports he does enjoy reading, he no longer can play golf which is a sadness, but likes to watch sports games. He had hoped to return home, but recognizes given his current functional status this is not reasonable. Patient has been a do not attempt resuscitation, does have advanced directives, but does not have a [address]. Will continue to review goals, patient will need for transfer to SNF , will meet with and patient in the morning to complete. Results - Lab Results Lab results reviewed: Yes Fish Bones: 05/20/18 07:30 05/23/18 05:57 Lab and Imaging Results: Lab Results x24hrs 05/23/18 05/23/18 Range/Units 05:57 05:57 PT 40.4 H (9.9-12.6) secs INR 3.8 H (0.8-1.2) Sodium 133 L (135-145) mmol/L Potassium 4.3 (3.5-5.0) mmol/L Chloride 100 L (101-111) mmol/L Carbon Dioxide 24 (21-32) mmol/L Anion Gap 9.0 (6-13) BUN 47 H (6-20) mg/dL Creatinine 1.1 (0.6-1.2) mg/dL Estimated GFR (MDRD) 63 L (>89) Glucose 188 H (70-100) mg/dL Calcium 8.0 L (8.5-10.3) mg/dL Total Bilirubin 0.9 (0.2-1.0) mg/dL AST 163 H (10-42) IU/L ALT 97 H (10-60) IU/L Alkaline Phosphatase 1008 H (42-121) IU/L Total Protein 5.3 L (6.7-8.2) g/dL Albumin 2.6 L (3.2-5.5) g/dL Globulin 2.7 (2.1-4.2) g/dL Albumin/Globulin Ratio 1.0 (1.0-2.2) Impression and Recommendations - Palliative Care Impression: This is an 88-year-old gentleman who presents with multiple comorbidities, recovering from hospital-acquired pneumonia, continues with frailty and poor activity tolerance and fatigue. Patient does have known metastatic prostate cancer, as well as now acute on chronic heart failure, and atrial fib. Palliative care to continue to provide support and anticipatory guidance. Recommendations/Counseling Done: 1. Generalized weakness. Patient is wanting to improve his functional status, the goal is to transition him to SNF for rehab, Concerned though given his activity tolerance. Was able to participate today, though did desat. Will need to pace his activities, reviewed with transitioning to rehab focus, has visited there before, but no personal experience. Awaiting [place] approval for transition plan. 2. Anorexia. Patient with some increased trouble with swallowing today, patient reports early satiety and negative taste changes. Dislikes the taste of the antibiotic, and causing taste changes. Currently on Remeron 7.5 mg now for three weeks, did not increase to 15 mg as directed, would hold before making any more medication adjustments until patient stablized at new normal but may benefit from titration up. 3. Dyspnea, multifactorial in origin with both pneumonia and acute on chronic heart failure. Patient denies distress, though still requiring oxygen with activity, goal hopefully to not return home, medications continue to be adjusted. 4. Advanced Care Planning. Remains quite frail, concerned regarding ""new normal is going to be". Patient wanting to be as independent as possible, though does seem somewhat resigned to his ongoing decline. Will continue to work with patient and regarding realistic goals in the context of his ongoing health issues. Referral sent to Dr. Mclean to follow at SNF. Patient does score on the Darrel index which looks at a population of hospitalized adults age 70 and older and all because one year mortality greater than a 6, at 14 points. This translates into a risk of 1 year mortality at 64% with a range of 58-70. Risk calculators cannot predict the future for any one individual risk with a estimate how many people with similar risk factors will live and , but cannot identify who will live in who will Time Spent: 60 minutes with greater than 50% of this done in counseling and coordination of care, facilitating through the day as far as care needs and anticipatory guidance
[2018-05-23] MEDS ORDERED: GADOBUTROL 7.5 MMOL/7.5 ML VIAL IVP ONE (14:36)
--- NOTE | 2018-05-23 15:32 | MRI Report ---
Reason: new R facial droop, hx of renal and prostate ca Procedure Date: 05/23/2018 Accession Number: [id number] / [id number] Procedure: MRI - Brain W/WO CPT Code: FULL RESULT: EXAM: MRI BRAIN WITHOUT AND WITH CONTRAST EXAM DATE: 05/23/2018 02:48 PM. CLINICAL HISTORY: 88 year-old male. New R facial droop, hx of renal and prostate ca. COMPARISON: None. TECHNIQUE: Multiplanar, multisequence T1-weighted and fluid-sensitive MR sequences of the brain were performed. Sequences optimized for routine evaluation. Other: None. IV Contrast: 7 ML Gadavist. FINDINGS: Brain Volume: Moderate diffuse cerebral volume loss with ex vacuo dilatation of the ventricles and sulci, not clearly advanced for age. Parenchyma: No acute hemorrhage, mass, or infarct. Scattered T2/FLAIR hyperintense periventricular and deep white matter lesions within the cerebral hemispheres bilaterally. No abnormal enhancement. No parenchymal foci susceptibility artifact. Ventricles/Cisterns: No hydrocephalus. No abnormal extra-axial fluid collection or hemorrhage. Orbits: Symmetric and unremarkable. Sella Turcica: The pituitary gland, cavernous sinuses, suprasellar cistern and optic chiasm are unremarkable. IAC: Symmetric and unremarkable. Vasculature: Normal signal flow void is seen in the major arterial structures at the skull base. The dural sinuses are patent and enhance normally. Sinuses: Complete opacification of the right maxillary sinus. Moderate right and mild left mastoid fluid. Bones: No focal pathologic appearing marrow signal changes. Other: None. IMPRESSION: 1. No abnormal intracranial enhancement to suggest evidence for intracranial metastatic disease. 2. No MRI evidence of acute intracranial abnormality. Specifically, no evidence of acute or subacute infarct, acute intracranial hemorrhage, mass, midline shift, or hydrocephalus. 3. Scattered T2/FLAIR hyperintense periventricular and deep white matter lesions within the cerebral hemispheres bilaterally. 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 RADIA
[2018-05-23] MEDS: MIRTAZAPINE 15 MG TABLET PO SCH (20:41)
[2018-05-24] MEDS: SODIUM CHLORIDE FLUSH 0.9% 10 ML SYRINGE IVP SCH ×2 (00:29→08:10)
[2018-05-24] MEDS: ACETAMINOPHEN 325 MG TABLET PO PRN (00:41)
[2018-05-24] MEDS: CLINDAMYCIN 150 MG CAPSULE PO SCH ×2 (06:26→10:50)
[2018-05-24] MEDS: LEVOTHYROXINE 75 MCG TABLET PO SCH (06:26)
[2018-05-24] MEDS: predniSONE 20 MG TABLET PO SCH (08:09)
[2018-05-24] MEDS: DIGOXIN 125 MCG TABLET PO SCH (08:10)
[2018-05-24] MEDS: FERROUS SULFATE 325 MG TABLET PO SCH (08:10)
[2018-05-24] MEDS: METOPROLOL SUCCINATE 25 MG TABLET PO SCH (08:10)
[2018-05-24] MEDS: CHOLECALCIFEROL 1,000 UNIT TABLET PO SCH (08:10)
[2018-05-24] MEDS: FUROSEMIDE 20 MG TABLET PO SCH (08:10)
[2018-05-24] MEDS: DIVALPROEX DR 250 MG TABLET PO SCH (08:10)
[2018-05-24] MEDS: TAMSULOSIN 0.4 MG CAPSULE PO SCH (08:10)
[2018-05-24] MEDS: CALCIUM CITRATE 250 MG TABLET PO SCH (08:10)
[2018-05-24] MEDS: SACCHAROMYCES BOULARDII 250 MG CAPSULE PO SCH (08:10)
[2018-05-24] MEDS: LIDOCAINE PATCH 5% TOP SCH (08:11)
[2018-05-24] MEDS: POLYETHYLENE GLYCOL 3350 17 GM PACKET PO SCH (08:12)
[2018-05-24 14:19] LABS: BILIRUBIN,URINE NEGATIVE (NEGATIVE); GLUCOSE, URINE (UA) NEGATIVE (NEGATIVE); KETONES,URINE (UA) NEGATIVE (NEGATIVE); LEUKOCYTE ESTERASE, URINE NEGATIVE (NEGATIVE); NITRITE,URINE NEGATIVE (NEGATIVE); OCCULT BLOOD,URINE SMALL (NEGATIVE); PROTEIN,URINE NEGATIVE (NEGATIVE); UROBILINOGEN,URINE 0.2 (NORMAL) E.U./dL (NORMAL)
[2018-05-24 14:21] LABS: CLARITY,URINE CLEAR (CLEAR)
[2018-05-24 14:27] LABS: RBC,URINE 0-5 /HPF (0-5)
[2018-05-24 14:28] LABS: BACTERIA,URINE Rare /HPF (None Seen); SQUAMOUS EPITHELIAL CELL,UR RARE Squamous (<= Few)
[2018-05-24 15:42] VITALS: BP 123/56
--- NOTE | 2018-05-25 02:27 | DISCHARGE SUMMARY ---
Physician: Raissa Liang MD DATE OF ADMISSION: 05/17/2018 DATE OF DISCHARGE: 05/24/2018 PRIMARY CARE PROVIDER: Xu Mclean MD DISCHARGE DIAGNOSES 1. Sepsis with healthcare-associated pneumonia. 2. Atrial fibrillation with rapid ventricular response. 3. Heart failure with preserved left ejection fraction. 4. Aortic stenosis with aortic regurgitation. 5. Acute kidney injury. 6. Liver neoplasm, uncertain behavior. 7. Kidney neoplasm, uncertain behavior. 8. 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 9. Urinary incontinence. 10. Urinary retention. 11. Delirium. 12. Dysphagia. 13. Chronic right facial droop. 14. Hypoxia. 15. Generalized weakness. DISCHARGE MEDICATIONS 1. Tylenol 650 mg every 4 hours as needed for fever, pain, or headache. 2. Calcium citrate 500 mg daily. 3. Vitamin D 600 units daily. 4. Cipro 250 mg p.o. b.i.d. for 5 days, to treat his urinary incontinence and retention in the fa ce of Nunez placement. 5. Digoxin 0.125 mg daily. 6. Depakote 500 mg p.o. b.i.d. 7. Folic acid 1 mg p.o. daily. 8. Ibuprofen 200 mg p.o. every 4 hours p.r.n. 9. Synthroid 150 mcg daily. 10. Lidoderm patch to affected area for bony pain, 12 hours a day. 11. Metoprolol 12.5 mg p.o. b.i.d. 12. Mirtazapine 7.5 mg daily. 13. Prednisone 5 mg p.o. b.i.d. 14. Flomax 0.4 mg daily. 15. Ultram 25 mg every 6 hours as needed. 16. Coumadin 5 mg on Tuesday, Tuesday, Tuesday, , Tuesday, Tuesday. I am asking that the stephenie haskins's anticoagulation status with his atrial fibrillation be evaluated. Because of his worsening s tatus and poor prognosis, it may be prudent not to have him on Coumadin. PRINCIPAL PROCEDURES 1. Blood cultures, no growth after 5 days. 2. Urine culture, no growth. 3. Respiratory culture with gram-positive cocci in clusters. 4. Cultures from 05/22/2018; at the time of discharge, cultures are in progress with final results to follow. 5. Echocardiogram. This is a preliminary study, final report pending. He is in atrial fibrillati on. Left ventricular ejection fraction normal at 50% to 55%. Severe increase in left atrial volume index. Severe right atrial enlargement. Since January 2013, severe biatrial enlargement is a new findin g. New finding of moderate aortic stenosis by peak mean pressure gradient of 37 mmHg/23 mmHg. By co ntinuity equation, aortic valve of 0.97 cm2. Moderate aortic regurgitation. As compared to 02/06/20 13 echo, aortic stenosis is new. Mild to moderate tricuspid regurgitation with moderately abnormal r ight heart pressures and right ventricular systolic pressure at rest is 54 mmHg. 6. Five chest x-rays showing density behind the left heart, atelectasis versus infiltrate. Platel et atelectasis, right lung base. Cardiomegaly. 7. Abdomen and pelvis CT with heterogeneous enhancement of the liver with irregular areas of hypod ensity. At least one round mass-like area is seen in the left lobe of the liver. Findings suggestiv e of CHF/fluid overload, including cardiomegaly, pericardial effusion, bilateral pleural effusions. Diffuse mesenteric and retroperitoneal edema. Diffuse superficial subcutaneous edema. Left renal ma ss continues to be suspicious for renal cell carcinoma but less conspicuous than prior exam. Diffuse sclerotic osseous METS increased compared to prior exam. 8. Brain MRI with no abnormal intracranial enhancement to suggest intracranial metastatic disease or subacute infarct or hemorrhage. Chronic white matter disease. HOSPITAL COURSE: The patient is an 88-year-old white male who has had metastatic prostate cancer sin ce 2005. When he was initially diagnosed he did not have osseous disease. Unfortunately, he had pro gression and has been placed on hormone-based therapy as well as Zometa to help him with the bony met astasis. Most recently, he has been on Xtandi. He developed severe fatigue and received palliative radiation to his spine 2 months prior to admission. Xtandi dose was cut in half. He is to be reexam ined in 1 month's time to have his PSA checked. If his PSA doubled in 3 months' time, he was to be e ncouraged to restart Xtandi. Other options included Provenge or radium-223 oral or chemotherapy incl uding docetaxel or paclitaxel. Family describes a man who has been gently but steadily deteriorating over the last year. Performanc e status is slowly diminishing. He has not had any fever or chills. Appetite has remained the same, and he has constant nocturia, but no hematuria. Bony back pain and shoulder pain in the left should er is stable at about a 6/10. Over the last week prior to admission, they noticed that his leg edema was much worse and they tried using compression stockings. Today, he got out of bed and walked a fe w feet but was so exhausted he turned around to try to get back in bed. He did not make it and colla psed as he got to the side of the bed. He then slid off the bed to the floor with no great trauma. There was no syncope, no blow to the head. He states he was completely conscious the entire time. Gonzales murcia has a history of seizures but did not have a seizure. He was evaluated in the emergency room and found to have collapsed from multifactorial status, includ ing atrial fibrillation with rapid ventricular response, protein calorie malnutrition, and progressio n of his metastatic prostate cancer. He was admitted to start rate control, diuresis, and check an e cho. Echocardiogram showed him to have worsening aortic regurgitation from 2012 and new aortic steno sis. The atrial fibrillation was chronic, for which he is on Coumadin. After starting to treat the congestive heart failure and atrial fibrillation rate, he then developed hypotension, fever, and was found to have sepsis from pneumonia and transferred to ICU. He received aggressive fluid resuscitati on, IV antibiotics, and pressor agents. He eventually recovered from that. Cultures were nonhelpful in establishing etiology. Dr. Stone saw the patient and felt that his metastatic prostate cancer, while progressing, was not the cause of the current severe deterioration. She urged us to look elsew here for the cause of his deterioration. Elevated liver function studies were evaluated with CT of t he abdomen and he had a new liver mass. His renal cancer, that was already present prior to admissio n, is about the same size. After a stay in ICU for sepsis and pneumonia, he returned to med/surg sta [facility]. He was seen by Physical Therapy for generalized severe weakness. He has limited mobility now, not only because of pain but because of endurance, and needs a walker. INR was checked on a regular basis and Coumadin was held or continued depending on INR. The patient was felt to still have confusion more than the family was comfortable with. We evaluated him and found him to have a right facial droop that was not present on admission but nobody could re ally say when it started. The was unaware that he even had a change in his face. In an effort to make sure that there was no metastatic disease to brain, an MRI was done and that was negative. The patient continues to have urinary incontinence and retention. He did require a Nunez when he was first brought in. Nunez was removed, and he had increasing symptoms but opted not to have the Nunez replaced permanently at this time. Dysphagia was present on the day before discharge and a swallow evaluation was done. He was not offended to food or liquid in his mouth. He took water with a straw and coughed on it. The straw delivers the bolus to the back of his tongue too fast and enters his p harynx prematurely. He did applesauce and a harsha cracker and had stasis in the pharynx. He could have presbyesophagus with slow transit through the hypopharynx and increased risk of laryngeal penetr ation. This is felt all to be in the face of approaching end of life, but not from stroke. He was t o have his medication crushed in applesauce, soft foods easier to tolerate, to get offered smoothies and milkshakes since it is easier to eat than solid foods, to have aspiration precautions, and drink from a cup not a straw. On a daily basis, long conversations were had with his son, Loyd, and his . I carefully explained that this patient has been failing from multiple factors. The fact that he has liver mass that is p robably neoplasm is adding to the tumor burden of his metastatic prostate cancer and the tumor burden of the kidney neoplasm. Combine that with his slow recovery from pneumonia, the atrial fibrillation with RVR and congestive heart failure, and the overall prognosis was poor. Palliative care consult was obtained during his stay. They had already been on board and had been se eing the patient prior to admission. He was seen during his stay and he will continue to be followed and [facility] is where he will be transitioned to. He was discharged in stable condition with a poor prognosis. Temperature 36.5, pulse 93, blood press ure 123/56, respirations 18, and 95% on 3 liters. He is to go on 2-3 liters nasal cannula to [facility] O2 saturation greater than 92%. He is a cachectic, elderly male. Still strives to have wit and re gabriele but tires very, very easily. Chronic right facial droop. Neck is supple with JVD that is lidia fway up when he is at a 45-50 degree angle. He has an irregular rate and rhythm with a pulse in the 70s to 90s and has a soft systolic murmur. The abdomen is soft, scaphoid, nontender, with hypoactive bowel sounds. Extremities had 2+ edema on admission and were down to 1+ edema at discharge. No chr onic venous stasis. Neurologically he is confused, still disoriented at times. Generalized weakness . No focal deficits other than the possible right facial droop and the dysphagia. Greater than 30 minutes was spent in coordinating discharge. The patient will be followed at the [facility] by his primary care provider, Dr. Xu Mclean. Warm handoff was done with Dr. Ramila dasilva. The patient will also be followed by [facility] Elise. She and the family will decide when it is appropriate for the patient to transition to hospice care. cc: Xu Mclean MD TD: 05/24/2018 16:53
--- NOTE | 2018-05-31 14:11 | ONCOLOGY / HEMATOLOGY ---
DATE OF SERVICE: 05/17/2018 Physician: Jayde Stone MD [facility] MEDICAL ONCOLOGY/HEMATOLOGY INPATIENT CONSULT NOTE CHIEF COMPLAINT/HISTORY OF PRESENT ILLNESS: Patient is a pleasant 88-year-old gentleman with a histo ry of metastatic prostate cancer, who has now been admitted to the hospital for collapse secondary to atrial fibrillation with RVR. The patient currently reports that he is having some shortness of kali ath. He continues to feel a little bit lightheaded as well. REVIEW OF SYSTEMS: As per HPI. All others are negative. ECOG performance status 3. PHYSICAL EXAMINATION VITAL SIGNS: Reviewed, as per chart. GENERAL: Patient lying in bed. HEENT: Pallor present. Oral mucosa moist. LYMPH: No cervical or supraclavicular lymphadenopathy noted. HEART: Irregularly irregular. Rate is now controlled to 80s to 100s. LUNGS: Decreased breath sounds at the bases bilaterally. ABDOMEN: Soft, nontender. No organomegaly. EXTREMITIES: Arthritic changes present. PSYCHIATRIC: Appropriate affect. SKIN: Dry skin. Bruising present on the arms. NEUROLOGIC: Patient is a little sleepy. LABORATORY DATA: Reviewed. Today, shows normal CBC, a little anemia. 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 He is currently off any treatment for his metastatic prostate ca ncer given the inability to tolerate these treatments. However, his prostate cancer is not worsening at this time and he is on a surveillance pattern. He has been admitted for atrial fibrillation with RVR. I agree with the hospitalist team to rate control the patient. I will see the patient in 2 we eks after his discharge to discuss further treatment options of his prostate cancer. SOCIAL HISTORY/FAMILY HISTORY: Reviewed and unchanged. I spent 40 minutes, more than 50% of which was face to face in direct patient consultation and also t alking to his son about his care home plan for prostate cancer. TD: 05/31/2018 13:53
== END 2018-05-24 17:05 | DRG 291 ==
LOC: EDUNIT# → ED 20:59 → MS3 05-17 01:18 → ICU 05-18 17:55 → MS2 05-20 23:29
PROVIDERS: ADMIT Specialist; ATTEND Specialist
DX: I11.0 Hypertensive heart disease with heart failure (principal); A41.9 Sepsis, unspecified organism; R65.20 Severe sepsis without septic shock; J90 Pleural effusion, not elsewhere classified; J18.9 Pneumonia, unspecified organism; C79.51 Secondary malignant neoplasm of bone; N17.9 Acute kidney failure, unspecified; E87.1 Hypo-osmolality and hyponatremia; E44.1 Mild protein-calorie malnutrition; I31.3 Pericardial effusion (noninflammatory); I50.33 Acute on chronic diastolic (congestive) heart failure; C61 Malignant neoplasm of prostate; I48.2 Chronic atrial fibrillation; R97.21 Rising PSA following treatment for malignant neoplasm of prostate; I08.2 Rheumatic disorders of both aortic and tricuspid valves; R62.7 Adult failure to thrive; G89.3 Neoplasm related pain (acute) (chronic); Y95 Nosocomial condition; D37.6 Neoplasm of uncertain behavior of liver, gallbladder and bile ducts; D41.02 Neoplasm of uncertain behavior of left kidney; G40.909 Epilepsy, unspecified, not intractable, without status epilepticus; I95.1 Orthostatic hypotension; E03.9 Hypothyroidism, unspecified; R33.9 Retention of urine, unspecified; R41.0 Disorientation, unspecified; R13.13 Dysphagia, pharyngeal phase; D50.9 Iron deficiency anemia, unspecified; I27.22 Pulmonary hypertension due to left heart disease; R29.810 Facial weakness; T83.098A Other mechanical complication of other urinary catheter, initial encounter; R31.9 Hematuria, unspecified; Y84.6 Urinary catheterization as the cause of abnormal reaction of the patient, or of later complication, without mention of misadventure at the time of the procedure; Y92.239 Unspecified place in hospital as the place of occurrence of the external cause; E86.0 Dehydration; R09.02 Hypoxemia; R32 Unspecified urinary incontinence; H91.93 Unspecified hearing loss, bilateral; Z66 Do not resuscitate; Z51.5 Encounter for palliative care; Z79.899 Other long term (current) drug therapy; Z92.3 Personal history of irradiation; Z79.01 Long term (current) use of anticoagulants; Z68.21 Body mass index [BMI] 21.0-21.9, adult; Z85.828 Personal history of other malignant neoplasm of skin; Z79.52 Long term (current) use of systemic steroids; Z79.890 Hormone replacement therapy; Z87.891 Personal history of nicotine dependence
CPT/HCPCS: 36415; 36600; 51701; 70553; 71045; 74177; 80053; 80076; 80162; 80202; 81001; 81003; 82803; 83540; 83605; 83690; 83735; 83880; 84100; 84443; 84466; 84484; 85025; 85610; 85730; 86140; 87040; 87070; 87086; 87150; 87205; 93005; 93306; 94761; 99223; 99232; 99284; 99285